=== PATIENT | male | born 1995 | race Caucasian/White ===

== ENCOUNTER 2016-12-06 17:38 | Emergency (ER) | payer BC ==
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
[2016-12-06] MEDS ORDERED: Ibuprofen 800 MG Tab PO ONE (18:11)
[2016-12-06 18:38] VITALS: BP 130/71
--- NOTE | 2016-12-07 15:33 | CR ---
INDICATION: Lateral ankle injury with swelling. LEFT ANKLE: Three views of the left ankle revealed soft tissue swelling overlying the lateral malleolus. However, an acute fracture, dislocation, or other significant bone or joint abnormality was not identified. DAWSON
== END 2016-12-06 18:45 | disposition home or self-care (01) ==
LOC: FB.ED 17:38
DX: S93.412A Sprain of calcaneofibular ligament of left ankle, initial encounter (principal); W13.8XXA Fall from, out of or through other building or structure, initial encounter; Y93.39 Activity, other involving climbing, rappelling and jumping off; Y92.39 Other specified sports and athletic area as the place of occurrence of the external cause
CPT/HCPCS: 73610; 99283; A9270; 29515

== ENCOUNTER 2018-05-13 21:37 | Emergency (ER) | payer BC ==
[2018-05-13 21:47] VITALS: BP 115/84
[2018-05-13] MEDS ORDERED: LORazepam 1 MG Tab PO ONE ×2 (22:00→22:48)
[2018-05-13] MEDS ORDERED: Sodium Chloride 0.9% 1,000 ML IV SCH (23:00)
[2018-05-13] MEDS ORDERED: MVI, Adult with Vitamin K 10 ML, Thiamine 100 MG, Folic Acid 1 MG, Magnesium Sulfate 3 ... IV SCH ×5 (23:45)
[2018-05-14] MEDS ORDERED: Potassium Chloride 10% 20 MEQ/15 ML Soln 15 ML UD Cup PO ONE (00:04)
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
[2018-05-14] MEDS ORDERED: chlordiazePOXIDE 25 MG Cap PO PRN (03:01)
[2018-05-14] MEDS ORDERED: Sodium Chloride 0.9% 10 ML Syringe FLUSH PRN (04:16)
== END 2018-05-14 03:05 | disposition home or self-care (01) ==
LOC: FB.ED 21:37
DX: F10.230 Alcohol dependence with withdrawal, uncomplicated (principal); E87.6 Hypokalemia; E83.42 Hypomagnesemia; F41.0 Panic disorder [episodic paroxysmal anxiety]; Z88.2 Allergy status to sulfonamides
CPT/HCPCS: 36415; 80053; 80305; 81001; 83735; 85025; 96361; 96365; 99283; A9270; G0480; J3411; J3475; J7030; J3490

== ENCOUNTER 2018-12-05 07:57 | Emergency (ER) | payer BC ==
[2018-12-05] MEDS ORDERED: Ondansetron 4 MG/2 ML SDV IVPUSH ONE (08:42)
[2018-12-05] MEDS ORDERED: Sodium Chloride 0.9% 1,000 ML IV SCH ×3 (08:45→12:45)
--- NOTE | 2018-12-05 08:47 | EDM.PDOC ---
ED HPI GENERAL MEDICAL PROBLEM - General Stated Complaint: SEIZURE,ANXIETY Time Seen by Provider: 12/05/18 08:25 Source of Information: Reports: Patient, Family, Old Records History Limitations: Reports: No Limitations - History of Present Illness INITIAL COMMENTS - FREE TEXT/NARRATIVE: Patient is a pleasant 23-year-old male who presents today with both his parents with concern for alcohol withdrawal, and vomiting overnight. He still has known history of severe alcohol use, was at [facility] 2 weeks ago overnight and then discharged home. He states he was able to stay clean for 10-12 days and then over the weekend started again, drinking 8-10 shooters (50ml of 49.5% ETOH) each day. Last drink was at 8 PM yesterday evening. Overnight he woke up vomiting and also feels extremely shaky. He has a history of severe panic attacks where he just feels shaky and everything all over. Also history of alcohol withdrawal seizures. He is concerned he had a seizure this morning, given he was suddenly very shaky all over and felt very anxious. He did not bite his tongue or have any incontinence. history of delirium tremens and alcohol withdrawal seizures. He was started on gabapentin by [facility], but hasn't taken it in 2 days. He also was given acamprosate but hasn't been taking that. He notes a history of one of his liver enzymes being elevated and blood work 1 week ago. Some abdominal pain this morning, which he states happens after he drinks. No blood in his vomit. Sweaty now, but no fever. No diarrhea or constipation, no urinary symptoms, no numbness or tingling in his hands or feet. Denies chest pain or shortness of breath. Uses THC, but no tobacco products and no other drug use. His parents confirm this. There is an extensive history of alcoholism on his father's side and some on his mother's side as well. Plan was for him to go to a treatment center in [place] early this week. - Related Data Allergies Allergy/AdvReac Type Severity Reaction Status Date / Time Sulfa (Sulfonamide Allergy Cannot Verified 12/05/18 09:29 Antibiotics) Remember Home Meds: Home Meds Magnesium Oxide 400 mg PO BID #30 tab 05/14/18 [Rx] Potassium Chloride 20 meq PO BID #40 tab.er.prt 05/14/18 [Rx] chlordiazePOXIDE [Librium] 10 mg PO TID PRN #8 cap 05/14/18 [Rx] chlordiazePOXIDE [Librium] 10 mg PO Q6H PRN 1 Days #3 cap 12/05/18 [Rx] Past Medical History Other Gastrointestinal History: Elevated LFTs Psychiatric History: Reports: Addiction, Anxiety, Panic Attack - Past Surgical History HEENT Surgical History: Reports: Oral Surgery Other Musculoskeletal Surgeries/Procedures:: Ankle surgery Social & Family History - Family History Psychiatric: Reports: Anxiety Other Psychiatric Family History: Alcohol use disorder - Tobacco Use Smoking Status *Q: Never Smoker - Alcohol Use Alcohol Use History: Yes - Recreational Drug Use Recreational Drug Use: Yes Recreational Drug Type: Reports: Marijuana/Hashish - Living Situation & Occupation Living situation: Reports: Single, with Family ED ROS GENERAL - Review of Systems Review Of Systems: ROS reveals no pertinent complaints other than HPI. ED EXAM, GENERAL - Physical Exam Exam: See Below Free Text/Narrative:: Gen.: Alert, very anxious. Pupils are pinpoint and extraocular motion is intact. throat without erythema, mucus membranes moist, emesis smell noted. Head atraumatic, neck is supple. Lungs are clear throughout with no wheezes or crackles, heart is tachycardic but otherwise regular. Abdomen positive bowel sounds, soft nondistended nontender. Peripheral pulses +2 in the upper and lower extremities and there is no lower extremity edema. He has slight tremulousness noted of his hands. His skin is without lesions or rashes. Psych : He is alert and oriented, makes good eye contact and answers questions appropriately. EKG INTERPRETATION Rhythm: NSR QT: Normal Course - Vital Signs Text/Narrative:: History of severe alcohol withdrawal and DTs, labs ordered, will give fluids, Zofran, contact made with [facility]. They're able to detox there, and also have co-morbid mental health treatment. History does not sound to me like a seizure, but rather a panic attack or sudden onset alcohol withdrawal. Will monitor closely here given he has a history of severe withdrawals. He has not had a prolonged episode of drinking this time, if he is accurate in his history. - Orders/Labs/Meds Orders: Active Orders 24 hr Category Date Time Status CIWAA Assessment [RC] ASDIRECTED Care 12/05/18 09:29 Active EKG Documentation Completion [RC] ASDIRECTED Care 12/05/18 08:42 Active LORazepam [Ativan] Med 12/05/18 10:23 Active See Protocol IVPUSH Q4H PRN Sodium Chloride 0.9% [Normal Saline] 1,000 ml Med 12/05/18 08:45 Active IV ASDIRECTED Sodium Chloride 0.9% [Normal Saline] 1,000 ml Med 12/05/18 09:30 Active IV ASDIRECTED Sodium Chloride 0.9% [Normal Saline] 1,000 ml Med 12/05/18 12:45 Active IV ASDIRECTED EKG 12 Lead [EK] Routine Ther 12/05/18 08:42 Ordered Medication Orders Sodium Chloride (Normal Saline) 1,000 mls @ 999 mls/hr IV ASDIRECTED KELSEY Last Admin: 12/05/18 09:12 Dose: 999 mls/hr Sodium Chloride (Normal Saline) 1,000 mls @ 500 mls/hr IV ASDIRECTED KELSEY Last Admin: 12/05/18 10:15 Dose: 500 mls/hr Sodium Chloride (Normal Saline) 1,000 mls @ 300 mls/hr IV ASDIRECTED KELSEY Lorazepam (Ativan) 0 mg IVPUSH Q4H PRN; Protocol PRN Reason: Withdrawal Symptoms Last Admin: 12/05/18 10:29 Dose: 1 mg Labs: Laboratory Tests 12/05/18 12/05/18 12/05/18 Range/Units 08:40 08:40 08:40 WBC 7.4 (4.5-12.0) X10-3/uL RBC 4.66 (4.30-5.75) x10(6)uL Hgb 15.9 (13.5-17.8) g/dL Hct 45.2 (30.0-51.3) % MCV 96.9 H (80-96) fL MCH 34.0 H (27.7-33.6) pg MCHC 35.1 (32.2-35.4) g/dL RDW 12.2 (11.5-15.5) % Plt Count 316 (125-369) X10(3)uL MPV 6.8 L (7.4-10.4) fL Neut % (Auto) 82.2 H (46-82) % Lymph % (Auto) 12.8 L (13-37) % [place] % (Auto) 4.2 (4-12) % Eos % (Auto) 1 (1.0-5.0) % Baso % (Auto) 0 (0-2) % Neut # (Auto) 6.1 (1.6-8.3) # Lymph # (Auto) 0.9 (0.6-5.0) # Laurens # (Auto) 0.3 (0.0-1.3) # Eos # (Auto) 0.0 (0.0-0.8) # Baso # (Auto) 0.0 (0.0-0.2) # Sodium 146 H (135-145) mmol/L Potassium 3.3 L (3.5-5.3) mmol/L Chloride 105 D (100-110) mmol/L Carbon Dioxide 26 (21-32) mmol/L BUN 13 (7-18) mg/dL Creatinine 1.0 (0.70-1.30) mg/dL Est Cr Clr Drug Dosing TNP Estimated GFR (MDRD) > 60 (>60) BUN/Creatinine Ratio 13.0 (9-20) Glucose 85 (80-116) mg/dL Lactic Acid 5.0 H* (0.4-2.2) mmol/L Calcium 9.5 (8.6-10.2) mg/dL Magnesium (1.8-2.5) mg/dL Total Bilirubin 0.6 (0.1-1.3) mg/dL AST 47 H D (5-25) IU/L ALT 74 H D (12-36) U/L Alkaline Phosphatase 66 (56-112) IU/L C-Reactive Protein (0.5-0.9) mg/dL Total Protein 7.4 (6.0-8.0) g/dL Albumin 4.1 (3.5-5.2) g/dL Globulin 3.3 g/dL Albumin/Globulin Ratio 1.2 Amylase (25-115) U/L Urine Color (YELLOW) Urine Appearance (CLEAR) Urine pH (5.0-6.5) Ur Specific [place] (1.010-1.025) Urine Protein (NEGATIVE) mg/dL Urine Glucose (UA) (NORMAL) mg/dL Urine Ketones (NEGATIVE) mg/dL Urine Occult Blood (NEGATIVE) Urine Nitrite (NEGATIVE) Urine Bilirubin (NEGATIVE) Urine Urobilinogen (NEGATIVE) mg/dL Ur Leukocyte Esterase (NEGATIVE) Urine WBC (0-5) Ur Squamous Epith Cells (NS,R,O) Urine Bacteria (NS) Urine Opiates Screen (NEGATIVE) Ur Oxycodone Screen (NEGATIVE) Ur Propoxyphene Screen (NEGATIVE) Ur Barbituates Screen (NEGATIVE) Ur Tricyclics Screen (NEGATIVE) Ur Phencyclidine Scrn (NEGATIVE) Ur Amphetamine Screen (NEGATIVE) Urine MDMA Screen (NEGATIVE) U Benzodiazepines Scrn (NEGATIVE) U Cocaine Metab Screen (NEGATIVE) U Marijuana (THC) Screen (NEGATIVE) Ethyl Alcohol (<0.03) % 12/05/18 12/05/18 12/05/18 Range/Units 08:40 08:40 08:40 WBC (4.5-12.0) X10-3/uL RBC (4.30-5.75) x10(6)uL Hgb (13.5-17.8) g/dL Hct (30.0-51.3) % MCV (80-96) fL MCH (27.7-33.6) pg MCHC (32.2-35.4) g/dL RDW (11.5-15.5) % Plt Count (125-369) X10(3)uL MPV (7.4-10.4) fL Neut % (Auto) (46-82) % Lymph % (Auto) (13-37) % Laurens % (Auto) (4-12) % Eos % (Auto) (1.0-5.0) % Baso % (Auto) (0-2) % Neut # (Auto) (1.6-8.3) # Lymph # (Auto) (0.6-5.0) # Lau[place] # (Auto) (0.0-1.3) # Eos # (Auto) (0.0-0.8) # Baso # (Auto) (0.0-0.2) # Sodium (135-145) mmol/L Potassium (3.5-5.3) mmol/L Chloride (100-110) mmol/L Carbon Dioxide (21-32) mmol/L BUN (7-18) mg/dL Creatinine (0.70-1.30) mg/dL Est Cr Clr Drug Dosing Estimated GFR (MDRD) (>60) BUN/Creatinine Ratio (9-20) Glucose (80-116) mg/dL Lactic Acid (0.4-2.2) mmol/L Calcium (8.6-10.2) mg/dL Magnesium 1.4 L (1.8-2.5) mg/dL Total Bilirubin (0.1-1.3) mg/dL AST (5-25) IU/L ALT (12-36) U/L Alkaline Phosphatase (56-112) IU/L C-Reactive Protein < 0.2 L (0.5-0.9) mg/dL Total Protein (6.0-8.0) g/dL Albumin (3.5-5.2) g/dL Globulin g/dL Albumin/Globulin Ratio Amylase 92 (25-115) U/L Urine Color (YELLOW) Urine Appearance (CLEAR) Urine pH (5.0-6.5) Ur Specific [place] (1.010-1.025) Urine Protein (NEGATIVE) mg/dL Urine Glucose (UA) (NORMAL) mg/dL Urine Ketones (NEGATIVE) mg/dL Urine Occult Blood (NEGATIVE) Urine Nitrite (NEGATIVE) Urine Bilirubin (NEGATIVE) Urine Urobilinogen (NEGATIVE) mg/dL Ur Leukocyte Esterase (NEGATIVE) Urine WBC (0-5) Ur Squamous Epith Cells (NS,R,O) Urine Bacteria (NS) Urine Opiates Screen (NEGATIVE) Ur Oxycodone Screen (NEGATIVE) Ur Propoxyphene Screen (NEGATIVE) Ur Barbituates Screen (NEGATIVE) Ur Tricyclics Screen (NEGATIVE) Ur Phencyclidine Scrn (NEGATIVE) Ur Amphetamine Screen (NEGATIVE) Urine MDMA Screen (NEGATIVE) U Benzodiazepines Scrn (NEGATIVE) U Cocaine Metab Screen (NEGATIVE) U Marijuana (THC) Screen (NEGATIVE) Ethyl Alcohol 0.13 H (<0.03) % 12/05/18 12/05/18 12/05/18 Range/Units 11:45 11:45 11:45 WBC (4.5-12.0) X10-3/uL RBC (4.30-5.75) x10(6)uL Hgb (13.5-17.8) g/dL Hct (30.0-51.3) % MCV (80-96) fL MCH (27.7-33.6) pg MCHC (32.2-35.4) g/dL RDW (11.5-15.5) % Plt Count (125-369) X10(3)uL MPV (7.4-10.4) fL Neut % (Auto) (46-82) % Lymph % (Auto) (13-37) % [place] % (Auto) (4-12) % Eos % (Auto) (1.0-5.0) % Baso % (Auto) (0-2) % Neut # (Auto) (1.6-8.3) # Lymph # (Auto) (0.6-5.0) # [place] # (Auto) (0.0-1.3) # Eos # (Auto) (0.0-0.8) # Baso # (Auto) (0.0-0.2) # Sodium (135-145) mmol/L Potassium (3.5-5.3) mmol/L Chloride (100-110) mmol/L Carbon Dioxide (21-32) mmol/L BUN (7-18) mg/dL Creatinine (0.70-1.30) mg/dL Est Cr Clr Drug Dosing Estimated GFR (MDRD) (>60) BUN/Creatinine Ratio (9-20) Glucose (80-116) mg/dL Lactic Acid 2.6 H (0.4-2.2) mmol/L Calcium (8.6-10.2) mg/dL Magnesium (1.8-2.5) mg/dL Total Bilirubin (0.1-1.3) mg/dL AST (5-25) IU/L ALT (12-36) U/L Alkaline Phosphatase (56-112) IU/L C-Reactive Protein (0.5-0.9) mg/dL Total Protein (6.0-8.0) g/dL Albumin (3.5-5.2) g/dL Globulin g/dL Albumin/Globulin Ratio Amylase (25-115) U/L Urine Color Yellow (YELLOW) Urine Appearance Slightly cloudy (CLEAR) Urine pH 8.0 H (5.0-6.5) Ur Specific [place] 1.020 (1.010-1.025) Urine Protein Negative (NEGATIVE) mg/dL Urine Glucose (UA) Normal (NORMAL) mg/dL Urine Ketones 15 H (NEGATIVE) mg/dL Urine Occult Blood Negative (NEGATIVE) Urine Nitrite Negative (NEGATIVE) Urine Bilirubin Negative (NEGATIVE) Urine Urobilinogen Normal (NEGATIVE) mg/dL Ur Leukocyte Esterase Negative (NEGATIVE) Urine WBC 0-5 (0-5) Ur Squamous Epith Cells Few H (NS,R,O) Urine Bacteria Few H (NS) Urine Opiates Screen Negative (NEGATIVE) Ur Oxycodone Screen Negative (NEGATIVE) Ur Propoxyphene Screen Negative (NEGATIVE) Ur Barbituates Screen Negative (NEGATIVE) Ur Tricyclics Screen Negative (NEGATIVE) Ur Phencyclidine Scrn Negative (NEGATIVE) Ur Amphetamine Screen Negative (NEGATIVE) Urine MDMA Screen Negative (NEGATIVE) U Benzodiazepines Scrn Positive H (NEGATIVE) U Cocaine Metab Screen Negative (NEGATIVE) U Marijuana (THC) Screen Negative (NEGATIVE) Ethyl Alcohol (<0.03) % 12/05/18 12/05/18 Range/Units 14:48 14:48 WBC (4.5-12.0) X10-3/uL RBC (4.30-5.75) x10(6)uL Hgb (13.5-17.8) g/dL Hct (30.0-51.3) % MCV (80-96) fL MCH (27.7-33.6) pg MCHC (32.2-35.4) g/dL RDW (11.5-15.5) % Plt Count (125-369) X10(3)uL MPV (7.4-10.4) fL Neut % (Auto) (46-82) % Lymph % (Auto) (13-37) % [place] % (Auto) (4-12) % Eos % (Auto) (1.0-5.0) % Baso % (Auto) (0-2) % Neut # (Auto) (1.6-8.3) # Lymph # (Auto) (0.6-5.0) # [place] # (Auto) (0.0-1.3) # Eos # (Auto) (0.0-0.8) # Baso # (Auto) (0.0-0.2) # Sodium 142 (135-145) mmol/L Potassium 3.8 (3.5-5.3) mmol/L Chloride 106 (100-110) mmol/L Carbon Dioxide 27 (21-32) mmol/L BUN 10 (7-18) mg/dL Creatinine 0.8 (0.70-1.30) mg/dL Est Cr Clr Drug Dosing TNP Estimated GFR (MDRD) > 60 (>60) BUN/Creatinine Ratio 12.5 (9-20) Glucose 85 (80-116) mg/dL Lactic Acid 2.0 (0.4-2.2) mmol/L Calcium 7.9 L (8.6-10.2) mg/dL Magnesium (1.8-2.5) mg/dL Total Bilirubin (0.1-1.3) mg/dL AST (5-25) IU/L ALT (12-36) U/L Alkaline Phosphatase (56-112) IU/L C-Reactive Protein (0.5-0.9) mg/dL Total Protein (6.0-8.0) g/dL Albumin (3.5-5.2) g/dL Globulin g/dL Albumin/Globulin Ratio Amylase (25-115) U/L Urine Color (YELLOW) Urine Appearance (CLEAR) Urine pH (5.0-6.5) Ur Specific [place] (1.010-1.025) Urine Protein (NEGATIVE) mg/dL Urine Glucose (UA) (NORMAL) mg/dL Urine Ketones (NEGATIVE) mg/dL Urine Occult Blood (NEGATIVE) Urine Nitrite (NEGATIVE) Urine Bilirubin (NEGATIVE) Urine Urobilinogen (NEGATIVE) mg/dL Ur Leukocyte Esterase (NEGATIVE) Urine WBC (0-5) Ur Squamous Epith Cells (NS,R,O) Urine Bacteria (NS) Urine Opiates Screen (NEGATIVE) Ur Oxycodone Screen (NEGATIVE) Ur Propoxyphene Screen (NEGATIVE) Ur Barbituates Screen (NEGATIVE) Ur Tricyclics Screen (NEGATIVE) Ur Phencyclidine Scrn (NEGATIVE) Ur Amphetamine Screen (NEGATIVE) Urine MDMA Screen (NEGATIVE) U Benzodiazepines Scrn (NEGATIVE) U Cocaine Metab Screen (NEGATIVE) U Marijuana (THC) Screen (NEGATIVE) Ethyl Alcohol (<0.03) % Meds: Medications Generic Name Dose Route Start Last Admin Trade Name Freq PRN Reason Stop Dose Admin Sodium Chloride 1,000 mls @ 999 mls/hr 12/05/18 08:45 12/05/18 09:12 Normal Saline IV 999 mls/hr ASDIRECTED KELSEY Administration Sodium Chloride 1,000 mls @ 500 mls/hr 12/05/18 09:30 12/05/18 10:15 Normal Saline IV 500 mls/hr ASDIRECTED KELSEY Administration Sodium Chloride 1,000 mls @ 300 mls/hr 12/05/18 12:45 Normal Saline IV ASDIRECTED KELSEY Lorazepam 0 mg 12/05/18 10:23 12/05/18 10:29 Ativan IVPUSH 1 mg Q4H PRN Administration Withdrawal Symptoms Protocol Discontinued Medications Generic Name Dose Route Start Last Admin Trade Name Ana Luara PRN Reason Stop Dose Admin Gabapentin 300 mg 12/05/18 08:49 Neurontin PO 12/05/18 08:50 ONETIME ONE Magnesium Sulfate 4 gm/ Premix 50 mls @ 150 mls/hr 12/05/18 09:16 12/05/18 09 :31 IV 12/05/18 09:17 150 mls/hr ONETIME ONE Administration Potassium Chloride 20 meq/ 100 mls @ 50 mls/hr 12/05/18 09:16 12/05/18 10:16 Premix IV 12/05/18 11:15 50 mls/hr ONETIME ONE Administration Ondansetron HCl 4 mg 12/05/18 08:42 12/05/18 09:12 Zofran IVPUSH 12/05/18 08:43 4 mg ONETIME ONE Administration - Re-Assessments/Exams Free Text/Narrative Re-Assessment/Exam: 12/05/18 09:30 labs reviewed and patient is slightly magnesium and potassium decreased, sodium slightly elevated at 146. Lactic acid 5.0, will recheck in 3 hours. Liver enzymes mildly elevated consistent with alcohol use. Ethanol level 0.13. CBC within normal limits. Patient is feeling better after about 600 NS fluids. Free water order to bedside and CIWA scale ordered. 1mg ativan given. Free Text/Narrative Re-Assessment/Exam: 12/05/18 patient greatly improved after 1mg ativan and has drunk about 900ml free water. Continue IVF. Repeat lactic acid 2.6. Discussed possible obs admission here overnight, they are in agreement. case discussed with hospitalist and nursing staff and no beds available. discussed case with parents. He has no withdrawal symptoms at this time, and is feeling much better. could consider transfer to [facility], but given his appearance now I am not sure he even warrants admission. Parents report they can keep him safe overnight and he has plans for admission to [facility] tomorrow if medically cleared. They are able to do detox there if needed. will plan to repeat lactic acid and BMP after another 3 hours. If no additional signs of withdrawal during that time, and all labs normalize, will plan to discharge home and medically clear for detox/treatment program. Free Text/Narrative Re-Assessment/Exam: 12/05/18 repeat lactic acid and BMP within normal limits. Electrolytes corrected. Patient has remained hemodynamically stable, and has not needed any additional dosing of Ativan. He has no tremulousness, and no other symptoms of withdrawal at this time. His abdomen is soft and he otherwise appears normal. Discussed case with Emely at [facility] and verbally cleared patient for admission there tomorrow based on current appearance. Notes to follow. We'll plan to discharge home, prescription of 3 tabs Librium given in case of low-grade withdrawal symptoms overnight. Parents aware that if he starts to have more significant withdrawal will need to return to the ER. However per report his duration of drinking has been extremely short so I do not anticipate this. They are in agreement with this plan and all questions are answered. Departure - Departure Time of Disposition: 16:39 Disposition: Home, Self-Care 01 Condition: Fair Clinical Impression: Alcohol use disorder, Anxiety - Discharge Information *PRESCRIPTION DRUG MONITORING PROGRAM REVIEWED*: Yes *COPY OF PRESCRIPTION DRUG MONITORING REPORT IN PATIENT KIP: No Prescriptions: chlordiazePOXIDE [Librium] 10 mg PO Q6H PRN 1 Days #3 cap PRN Reason: Agitation Instructions: Alcohol Use Disorder Referrals: PCP,Unknown [Primary Care Provider] - Additional Instructions: ER will fax notes up to [facility] once they are completed. Recommend calling them in the AM prior to driving. small script of Librium for as needed if develop low-level withdrawal symptoms. If severe symptoms or not controlled, need to return to ER - My Orders Last 24 Hours: My Active Orders 12/05/18 08:42 EKG Documentation Completion [RC] ASDIRECTED EKG 12 Lead [EK] Routine 12/05/18 08:45 Sodium Chloride 0.9% [Normal Saline] 1,000 ml IV ASDIRECTED 12/05/18 09:29 CIWAA Assessment [RC] ASDIRECTED 12/05/18 09:30 Sodium Chloride 0.9% [Normal Saline] 1,000 ml IV ASDIRECTED 12/05/18 10:23 LORazepam [Ativan] See Protocol IVPUSH Q4H PRN 12/05/18 12:45 Sodium Chloride 0.9% [Normal Saline] 1,000 ml IV ASDIRECTED - Assessment/Plan Last 24 Hours: My Active Orders 12/05/18 08:42 EKG Documentation Completion [RC] ASDIRECTED EKG 12 Lead [EK] Routine 12/05/18 08:45 Sodium Chloride 0.9% [Normal Saline] 1,000 ml IV ASDIRECTED 12/05/18 09:29 CIWAA Assessment [RC] ASDIRECTED 12/05/18 09:30 Sodium Chloride 0.9% [Normal Saline] 1,000 ml IV ASDIRECTED 12/05/18 10:23 LORazepam [Ativan] See Protocol IVPUSH Q4H PRN 12/05/18 12:45 Sodium Chloride 0.9% [Normal Saline] 1,000 ml IV ASDIRECTED
[2018-12-05] MEDS ORDERED: Gabapentin 300 MG Cap PO ONE (08:49)
[2018-12-05] MEDS ORDERED: Potassium Chloride 20 MEQ in Premix Bag 1 BAG IV ONE (09:16)
[2018-12-05] MEDS ORDERED: Magnesium Sulfate/Water 4 GM in Premix Bag 1 BAG IV ONE (09:16)
[2018-12-05] MEDS ORDERED: LORazepam 2 MG/ML SDV IVPUSH PRN (10:23)
[2018-12-05 20:18] VITALS: BP 125/71; PULSE 82
== END 2018-12-05 16:50 | disposition home or self-care (01) ==
LOC: FB.ED 07:57
DX: F41.9 Anxiety disorder, unspecified (principal); F10.10 Alcohol abuse, uncomplicated; Z88.2 Allergy status to sulfonamides
CPT/HCPCS: 36415; 80048; 80053; 80305-QW; 81001; 82150; 83605; 83735; 85025; 86140; 93005; 96361; 96365; 96366; 96368; 96375; 99285-25; G0480; J2060; J2405; J3475; J3480; J7030

== ENCOUNTER 2018-12-27 09:47 | Emergency (ER) | payer BC ==
[2018-12-27] MEDS ORDERED: Sodium Chloride 0.9% 1,000 ML IV ONE ×2 (10:43→10:44)
[2018-12-27] MEDS ORDERED: Ondansetron 4 MG/2 ML SDV IVPUSH ONE ×2 (10:44→12:41)
--- NOTE | 2018-12-27 10:53 | EDM.PDOC ---
ED HPI GENERAL MEDICAL PROBLEM - General Chief Complaint: Gastrointestinal Problem Stated Complaint: SEIZURE Time Seen by Provider: 12/27/18 10:25 Source of Information: Reports: Patient History Limitations: Reports: No Limitations - History of Present Illness INITIAL COMMENTS - FREE TEXT/NARRATIVE: c/o cramps and N/V at [facility] x2w for alcohol tx, d/c'ed 5d ago, stopped his meds (folic acid, citalopram, acamprosate, gabapentin) 2d ago and started drinking shots of alcohol, last alcohol last last night no pain except cramping in his hands says "I have an alcohol problem" labs here 3w ago with Mg 1.4, mild inc'd LFTs, alc level 130, urine tox pos benzodiazipines, u/a with 15 mg/dl ket. CBC, CMP, CRP otherwise neg pt states he smokes occasional THC, no cigs, on street drugs worked 4y as apprentice electrician, scheduled to go back to work in next week has his first outpt appointment with [facility] in 2d lives with girlfriend, no children no previous outpt tx, no previous inpt tx prior to 3w ago comes in by himself - Related Data Allergies Allergy/AdvReac Type Severity Reaction Status Date / Time Sulfa (Sulfonamide Allergy Cannot Verified 12/27/18 09:59 Antibiotics) Remember Home Meds: Home Meds Acamprosate [Campral] 333 mg PO TID 12/27/18 [History] Citalopram Hydrobromide [Celexa] 10 mg PO DAILY 12/27/18 [History] Folic Acid 1 mg PO DAILY 12/27/18 [History] Gabapentin [Neurontin] 300 mg TID 12/27/18 [History] Metoclopramide HCl 10 mg PO Q6H PRN #12 tablet 12/27/18 [Rx] Past Medical History Gastrointestinal History: Reports: Gastritis, GERD Other Gastrointestinal History: Elevated LFTs Musculoskeletal History: Reports: Fracture Other Musculoskeletal History: hx R wrist fx Neurological History: Reports: Seizure Other Neuro History: alcoholic seizure Psychiatric History: Reports: Addiction, Anxiety, Depression, Panic Attack, Psych Hospitalization(s) Other Psychiatric History: alcohol abuse, hx been in tx for ETOH abuse x 1 - Infectious Disease History Infectious Disease History: Reports: Chicken Pox - Past Surgical History Head Surgeries/Procedures: Reports: None HEENT Surgical History: Reports: Oral Surgery GI Surgical History: Reports: None Neurological Surgical History: Reports: None Other Musculoskeletal Surgeries/Procedures:: R foot surgery Social & Family History - Family History Family Medical History: Noncontributory Psychiatric: Reports: Anxiety Other Psychiatric Family History: Alcohol use disorder - Tobacco Use Smoking Status *Q: Never Smoker - Caffeine Use Caffeine Use: Reports: Coffee, Energy Drinks - Recreational Drug Use Recreational Drug Use: Yes Recreational Drug Type: Reports: Marijuana/Hashish Recreational Drug Use Frequency: Socially - Living Situation & Occupation Living situation: Reports: Single, with Family ED ROS GENERAL - Review of Systems Review Of Systems: See Below Constitutional: Reports: No Symptoms HEENT: Reports: No Symptoms Respiratory: Reports: No Symptoms Cardiovascular: Reports: No Symptoms Endocrine: Reports: No Symptoms GI/Abdominal: Reports: Nausea, Vomiting : Reports: No Symptoms Musculoskeletal: Reports: Other (cramps, mainly in hands) Skin: Reports: No Symptoms Neurological: Reports: No Symptoms Psychiatric: Reports: No Symptoms Hematologic/Lymphatic: Reports: No Symptoms Immunologic: Reports: No Symptoms ED EXAM, GENERAL - Physical Exam Exam: See Below Exam Limited By: No Limitations General Appearance: Alert, WD/WN, Other (pacing in room, 400 ml emesis on arrival, cooperative, alert) Eye Exam: Bilateral Eye: EOMI, PERRL Ears: Normal External Exam, Hearing Grossly Normal Nose: Normal Inspection Throat/Mouth: Normal Inspection, Normal Lips, Normal Voice, No Airway Compromise Head: Atraumatic, Normocephalic Neck: Normal Inspection, Supple, Non-Tender, Full Range of Motion Respiratory/Chest: No Respiratory Distress, Lungs Clear, Normal Breath Sounds, No Accessory Muscle Use, Chest Non-Tender Cardiovascular: Regular Rate, Rhythm, No Edema, No JVD, No Murmur, No Rub GI/Abdominal: Normal Bowel Sounds, Soft, Non-Tender, No Organomegaly, No Distention, No Mass Back Exam: Normal Inspection, Full Range of Motion, NT Extremities: Normal Inspection, Normal Range of Motion, Non-Tender, No Pedal Edema Neurological: Alert, Oriented, CN II-XII Intact, Normal Cognition, Normal Gait, No Motor/Sensory Deficits Psychiatric: Normal Affect, Normal Mood Skin Exam: Warm, Dry, Intact, Normal Color, No Rash, Other (turgor appears WNL) Lymphatic: No Adenopathy Course - Vital Signs Last Recorded V/S: Last Vital Signs Temp 36.4 C 12/27/18 09:48 Pulse 93 12/27/18 09:48 Resp 18 12/27/18 09:48 BP 124/64 12/27/18 09:48 Pulse Ox 99 12/27/18 09:48 - Orders/Labs/Meds Labs: Laboratory Tests 12/27/18 12/27/18 Range/Units 10:10 10:10 Sodium 145 (135-145) mmol/L Potassium 3.5 (3.5-5.3) mmol/L Chloride 102 (100-110) mmol/L Carbon Dioxide 30 (21-32) mmol/L BUN 14 (7-18) mg/dL Creatinine 1.0 (0.70-1.30) mg/dL Est Cr Clr Drug Dosing 116.60 mL/min Estimated GFR (MDRD) > 60 (>60) BUN/Creatinine Ratio 14.0 (9-20) Glucose 91 (80-116) mg/dL Calcium 9.8 (8.6-10.2) mg/dL Magnesium 1.8 (1.8-2.5) mg/dL Total Bilirubin 0.9 (0.1-1.3) mg/dL AST 46 H (5-25) IU/L ALT 72 H (12-36) U/L Alkaline Phosphatase 56 (56-112) IU/L Total Protein 7.5 (6.0-8.0) g/dL Albumin 4.4 (3.5-5.2) g/dL Globulin 3.1 g/dL Albumin/Globulin Ratio 1.4 Amylase 76 (25-115) U/L Ethyl Alcohol 0.12 H (<0.03) % Meds: Medications Discontinued Medications Generic Name Dose Route Start Last Admin Trade Name Freq PRN Reason Stop Dose Admin Diphenhydramine HCl 50 mg 12/27/18 13:06 Benadryl IVPUSH 12/27/18 13:07 ONETIME ONE Hydroxyzine HCl 25 mg 12/27/18 13:07 Atarax PO 12/27/18 13:08 ONETIME ONE Sodium Chloride 1,000 mls @ 999 mls/hr 12/27/18 10:43 12/27/18 11:00 Normal Saline IV 12/27/18 11:43 999 mls/hr .BOLUS ONE Administration Sodium Chloride 1,000 mls @ 999 mls/hr 12/27/18 10:44 12/27/18 11:59 Normal Saline IV 12/27/18 11:44 999 mls/hr .BOLUS ONE Administration Ketorolac Tromethamine 30 mg 12/27/18 12:41 12/27/18 12:50 Toradol IVPUSH 12/27/18 12:42 30 mg ONETIME ONE Administration Ondansetron HCl 4 mg 12/27/18 10:44 12/27/18 11:00 Zofran IVPUSH 12/27/18 10:45 4 mg ONETIME ONE Administration Ondansetron HCl 4 mg 12/27/18 12:41 12/27/18 12:48 Zofran IVPUSH 12/27/18 12:42 4 mg ONETIME ONE Administration - Radiology Interpretation Free Text/Narrative:: 1:09 PM c/o inc'd cramps when his mother arrived a short while ago, K and Mg are both WNL, mild inc'd LFTs unchanged rested comfortably until his mother arrived states he last took d/c meds 48 hours ago, says he was dry for 18d phone representative from [facility] came to ED and spoke with pt and made arrangements to move up his apt to tomorrow, has also initiated contact with an AA sponsor Departure - Departure Time of Disposition: 13:11 Disposition: Home, Self-Care 01 Condition: Good Clinical Impression: Alcohol abuse, Alcoholism, Elevated liver function tests, Muscle cramps, Dehydration - Discharge Information *PRESCRIPTION DRUG MONITORING PROGRAM REVIEWED*: Not Applicable *COPY OF PRESCRIPTION DRUG MONITORING REPORT IN PATIENT KIP: Not Applicable Prescriptions: Metoclopramide HCl 10 mg PO Q6H PRN #12 tablet PRN Reason: Nausea Instructions: Alcohol Use Disorder, Recovering From Addiction, Muscle Cramps and Spasms Referrals: PCP,None [Primary Care Provider] - Forms: ED Department Discharge Additional Instructions: Resume your prescribed medications this evening. Stop drinking alcohol. For pain and cramping, take acetaminophen 325 mg 2 tabs and ibuprofen 200 mg 3 tabs 4 times a day for 2 days. For cramping, use warm compresses for 10 minutes every 1-2 hours as needed. For nausea, take metoclopramide 10 mg 1 tab every 6 hours as needed. See your [facility] counselor tomorrow. Meet with your AA counselor. See your PCP in 3-5 days.
[2018-12-27] MEDS ORDERED: Ketorolac 30 MG/ML SDV IVPUSH ONE (12:41)
[2018-12-27] MEDS ORDERED: diphenhydrAMINE 50 MG/ML SDV IVPUSH ONE (13:06)
[2018-12-27] MEDS ORDERED: hydrOXYzine HCl 25 MG Tab PO ONE (13:07)
[2018-12-27 16:16] VITALS: BP 154/78; PULSE 101
== END 2018-12-27 13:45 | disposition home or self-care (01) ==
LOC: FB.ED 09:47
DX: F10.20 Alcohol dependence, uncomplicated (principal); E86.0 Dehydration; R25.2 Cramp and spasm; R79.89 Other specified abnormal findings of blood chemistry; F41.9 Anxiety disorder, unspecified; F32.9 Major depressive disorder, single episode, unspecified; Z88.2 Allergy status to sulfonamides; Y90.0 Blood alcohol level of less than 20 mg/100 ml
CPT/HCPCS: 36415; 80053; 80320; 82150; 83735; 96361; 96374; 96375; 96376; 99284; A9270; J1200; J1885; J2405; J7030; G0480

== ENCOUNTER 2019-08-14 09:25 | Emergency (ER) | payer BC ==
[2019-08-14] MEDS ORDERED: LORazepam 2 MG/ML SDV IM ONE (09:37)
[2019-08-14] MEDS ORDERED: Thiamine 100 MG in Sodium Chloride 0.9% 100 ML IV ONE (09:43)
[2019-08-14] MEDS ORDERED: LORazepam 2 MG/ML SDV IVPUSH ONE (09:43)
[2019-08-14] MEDS ORDERED: Ondansetron 4 MG/2 ML SDV IVPUSH ONE (09:43)
--- NOTE | 2019-08-14 09:43 | EDM.PDOCBH ---
ED HPI GENERAL MEDICAL PROBLEM - General Stated Complaint: ALCOHOL WITHDRAWAL Time Seen by Provider: 08/14/19 09:39 Source of Information: Reports: Patient History Limitations: Reports: No Limitations - History of Present Illness INITIAL COMMENTS - FREE TEXT/NARRATIVE: 23 yo male with alcohol withdrawal. He complains of tremors,anxiety,vomiting that started this morning. Last drink last night 7 pm. - Related Data Allergies Allergy/AdvReac Type Severity Reaction Status Date / Time Sulfa (Sulfonamide Allergy Cannot Verified 08/14/19 10:15 Antibiotics) Remember Home Meds: Home Meds Baclofen 20 mg PO TID 08/14/19 [History] Past Medical History Gastrointestinal History: Reports: Gastritis, GERD Other Gastrointestinal History: Elevated LFTs Musculoskeletal History: Reports: Fracture Other Musculoskeletal History: hx R wrist fx Neurological History: Reports: Seizure Other Neuro History: alcoholic seizure Psychiatric History: Reports: Addiction, Anxiety, Depression, Panic Attack, Psych Hospitalization(s) Other Psychiatric History: alcohol abuse, hx been in tx for ETOH abuse x 1 - Infectious Disease History Infectious Disease History: Reports: Chicken Pox - Past Surgical History Head Surgeries/Procedures: Reports: None HEENT Surgical History: Reports: Oral Surgery GI Surgical History: Reports: None Neurological Surgical History: Reports: None Other Musculoskeletal Surgeries/Procedures:: R foot surgery Social & Family History - Family History Family Medical History: Noncontributory Psychiatric: Reports: Anxiety Other Psychiatric Family History: Alcohol use disorder - Caffeine Use Caffeine Use: Reports: Coffee, Energy Drinks - Living Situation & Occupation Living situation: Reports: Single, with Family ED ROS GENERAL - Review of Systems Review Of Systems: Comprehensive ROS is negative, except as noted in HPI. ED EXAM, BEHAVIORAL HEALTH - Physical Exam Exam: See Below Exam Limited By: No Limitations General Appearance: Alert, Anxious Ears: Normal External Exam Nose: Normal Inspection Head: Atraumatic Respiratory/Chest: No Respiratory Distress Cardiovascular: Normal Peripheral Pulses GI/Abdominal: Normal Bowel Sounds Neurological: Alert, Oriented x 3 Psychiatric: Alert, Restless Skin Exam: Warm COURSE, BEHAVIORAL HEALTH COMP - Course Vital Signs: Last Vital Signs Temp 96.4 F L 08/14/19 09:30 Pulse 61 08/14/19 10:30 Resp 16 08/14/19 10:30 BP 135/75 08/14/19 10:30 Pulse Ox 100 08/14/19 10:30 Orders, Labs, Meds: Active Orders 24 hr Category Date Time Status Sodium Chloride 0.9% [Normal Saline] 1,000 ml Med 08/14/19 09:45 Active IV ASDIRECTED Medication Orders Sodium Chloride (Normal Saline) 1,000 mls @ 999 mls/hr IV ASDIRECTED KELSEY Last Admin: 08/14/19 09:55 Dose: 999 mls/hr Laboratory Tests 08/14/19 08/14/19 08/14/19 Range/Units 09:45 09:45 09:45 WBC 5.0 (4.5-12.0) X10-3/uL RBC 5.01 (4.30-5.75) x10(6)uL Hgb 16.8 (13.5-17.8) g/dL Hct 48.1 (30.0-51.3) % MCV 96.1 H (80-96) fL MCH 33.6 (27.7-33.6) pg MCHC 34.9 (32.2-35.4) g/dL RDW 12.4 (11.5-15.5) % Plt Count 282 (125-369) X10(3)uL MPV 6.5 L (7.4-10.4) fL Neut % (Auto) 53.1 (46-82) % Lymph % (Auto) 38.9 H (13-37) % [facility] % (Auto) 5.9 (4-12) % Eos % (Auto) 2 (1.0-5.0) % Baso % (Auto) 1 (0-2) % Neut # (Auto) 2.7 (1.6-8.3) # Lymph # (Auto) 1.9 (0.6-5.0) # [facility] # (Auto) 0.3 (0.0-1.3) # Eos # (Auto) 0.1 (0.0-0.8) # Baso # (Auto) 0.0 (0.0-0.2) # Sodium 142 (135-145) mmol/L Potassium 3.8 (3.5-5.3) mmol/L Chloride 103 (100-110) mmol/L Carbon Dioxide 27 (21-32) mmol/L BUN 12 (7-18) mg/dL Creatinine 1.2 (0.70-1.30) mg/dL Est Cr Clr Drug Dosing 97.16 mL/min Estimated GFR (MDRD) > 60 (>60) BUN/Creatinine Ratio 10.0 (9-20) Glucose 99 (80-116) mg/dL Calcium 9.2 (8.6-10.2) mg/dL Total Bilirubin 0.8 (0.1-1.3) mg/dL AST 68 H D (5-25) IU/L ALT 69 H (12-36) U/L Alkaline Phosphatase 75 (56-112) IU/L Total Protein 7.6 (6.0-8.0) g/dL Albumin 4.4 (3.5-5.2) g/dL Globulin 3.2 g/dL Albumin/Globulin Ratio 1.4 Ethyl Alcohol 0.08 H (<0.03) % Medications Generic Name Dose Route Start Last Admin Trade Name Freq PRN Reason Stop Dose Admin Sodium Chloride 1,000 mls @ 999 mls/hr 08/14/19 09:45 08/14/19 09:55 Normal Saline IV 999 mls/hr ASDIRECTED KELSEY Administration Discontinued Medications Generic Name Dose Route Start Last Admin Trade Name Freq PRN Reason Stop Dose Admin Thiamine HCl 100 mg/ Sodium 101 mls @ 202 mls/hr 08/14/19 09:43 08/14/19 10: 00 Chloride IV 08/14/19 09:44 202 mls/hr ONETIME ONE Administration Lorazepam 1 mg 08/14/19 09:37 Ativan IM 08/14/19 09:38 ONETIME ONE Lorazepam 1 mg 08/14/19 09:43 08/14/19 10:01 Ativan IVPUSH 08/14/19 09:44 1 mg ONETIME ONE Administration Ondansetron HCl 4 mg 08/14/19 09:43 08/14/19 09:58 Zofran IVPUSH 08/14/19 09:44 4 mg ONETIME ONE Administration Departure - Departure Time of Disposition: 11:20 Disposition: Home, Self-Care 01 Clinical Impression: Anxiety Alcohol withdrawal Qualifiers: Complication of substance-induced condition: uncomplicated Qualified Code(s): F10.230 - Alcohol dependence with withdrawal, uncomplicated - Discharge Information Referrals: PCP,None [Primary Care Provider] - Sepsis Event Note - Focused Exam Vital Signs: Vital Signs Temp Pulse Resp BP Pulse Ox 08/14/19 10:30 61 16 135/75 100 05/25/20 09:30 96.4 F L 96 18 150/87 H 100 Date Exam was Performed: 08/14/19 Time Exam was Performed: 11:20 - Problem List & Annotations (1) Alcoholism SNOMED Code(s): 9025149 Code(s): F10.20 - ALCOHOL DEPENDENCE, UNCOMPLICATED Status: Acute Current Visit: No (2) Anxiety SNOMED Code(s): 74545508 Code(s): F41.9 - ANXIETY DISORDER, UNSPECIFIED Status: Acute Current Visit: Yes - Problem List Review Problem List Initiated/Reviewed/Updated: Yes - My Orders Last 24 Hours: My Active Orders 08/14/19 09:45 Sodium Chloride 0.9% [Normal Saline] 1,000 ml IV ASDIRECTED - Assessment/Plan Last 24 Hours: My Active Orders 08/14/19 09:45 Sodium Chloride 0.9% [Normal Saline] 1,000 ml IV ASDIRECTED Plan: I gave him 1 L crystalloid,and IV Lorazepam.Symptoms improved. DC home.
[2019-08-14] MEDS ORDERED: Sodium Chloride 0.9% 1,000 ML IV SCH (09:45)
[2019-08-14 11:46] VITALS: BP 121/70; PULSE 60
== END 2019-08-14 11:40 | disposition home or self-care (01) ==
LOC: FB.ED 09:25
DX: F10.230 Alcohol dependence with withdrawal, uncomplicated (principal); F41.9 Anxiety disorder, unspecified; Z88.2 Allergy status to sulfonamides; Z79.899 Other long term (current) drug therapy
CPT/HCPCS: 36415; 80053; 80307; 85025; 96365; 96375; 99284-25; J2060; J2405; J3411; J7030; J7050

== ENCOUNTER 2021-08-03 06:52 | Emergency (ER) | payer BC ==
[2021-08-03] MEDS ORDERED: Thiamine 100 MG in Sodium Chloride 0.9% 100 ML IV ONE (07:01)
[2021-08-03] MEDS ORDERED: Ondansetron 4 MG/2 ML SDV ONE (07:02)
[2021-08-03] MEDS ORDERED: Folic Acid 50 MG/10 ML MDV IV STA (07:02)
[2021-08-03] MEDS ORDERED: Ondansetron 4 MG/2 ML SDV IVPUSH ONE ×2 (07:02→11:45)
[2021-08-03] MEDS ORDERED: LORazepam 2 MG/ML SDV IVPUSH ONE ×3 (07:03→11:44)
[2021-08-03] MEDS: Sodium Chloride 0.9% 1,000 ML IV SCH ×3 (07:16→18:30)
[2021-08-03] MEDS ORDERED: Magnesium Sulfate/Water 4 GM in Premix Bag 1 BAG IV ONE (08:09)
[2021-08-03] MEDS ORDERED: Potassium Chloride 20 MEQ in Premix Bag 1 BAG IV ONE (08:11)
[2021-08-03] MEDS ORDERED: chlordiazePOXIDE 25 MG Cap PO ONE (08:31)
[2021-08-03] MEDS ORDERED: LORazepam 2 MG/ML SDV ONE (11:42)
[2021-08-03] MEDS ORDERED: Ondansetron 4 MG Tab.DIS PO PRN (11:45)
[2021-08-03] MEDS ORDERED: chlordiazePOXIDE 25 MG Cap PO SCH (13:00)
[2021-08-03 19:17] VITALS: BP 124/78; PULSE 84
== END 2021-08-03 13:00 | disposition home or self-care (01) ==
LOC: FB.ED 06:52
DX: F10.230 Alcohol dependence with withdrawal, uncomplicated (principal); Z88.2 Allergy status to sulfonamides; Y90.0 Blood alcohol level of less than 20 mg/100 ml
CPT/HCPCS: 36415; 80053; 80307; 83735; 85025; 96365; 96366; 96367; 96375; 96376; 99282; 99284-25; A9270-GY; J2060; J2405; J3411; J3475; J3480; J3490; J7030

== ENCOUNTER 2021-08-26 08:36 | Emergency (ER) | payer BC ==
[2021-08-26] MEDS ORDERED: LORazepam 2 MG/ML SDV ONE (08:59)
[2021-08-26] MEDS ORDERED: Sodium Chloride 0.9% 10 ML Syringe FLUSH PRN (09:01)
[2021-08-26] MEDS ORDERED: LORazepam 2 MG/ML SDV IVPUSH STA (09:01)
[2021-08-26] MEDS ORDERED: Diazepam 5 MG Tab ONE (09:01)
[2021-08-26] MEDS ORDERED: Ondansetron 4 MG/2 ML SDV IVPUSH STA (09:01)
[2021-08-26] MEDS ORDERED: Ondansetron 4 MG/2 ML SDV ONE (09:02)
[2021-08-26] MEDS ORDERED: Sodium Chloride 0.9% 1,000 ML IV SCH (09:15)
[2021-08-26] MEDS ORDERED: Diazepam 5 MG Tab PO STA (09:18)
[2021-08-26 09:40] LABS: ESTIMATED GFR > 60 (>60)
[2021-08-26] MEDS ORDERED: Magnesium Sulfate/Water 2 GM in Premix Bag 1 BAG IV ONE (09:50)
[2021-08-26] MEDS: Thiamine 100 MG in Sodium Chloride 0.9% 50 ML IV STA ×2 (09:57→10:08)
[2021-08-26 13:29] VITALS: BP 144/98; PULSE 90
== END 2021-08-26 12:34 | disposition home or self-care (01) ==
LOC: FB.ED 08:36
DX: K70.9 Alcoholic liver disease, unspecified (principal); F10.230 Alcohol dependence with withdrawal, uncomplicated; E83.42 Hypomagnesemia; F41.9 Anxiety disorder, unspecified; K21.9 Gastro-esophageal reflux disease without esophagitis; Z88.2 Allergy status to sulfonamides; Y90.0 Blood alcohol level of less than 20 mg/100 ml
CPT/HCPCS: 36415; 80053; 80307; 82150; 83690; 83735; 84100; 85025; 96361; 96365; 96366; 96367; 96375; 99283; 99284-25; A9270-GY; J2060; J2405; J3411; J3475; J3490; J7030

== ENCOUNTER 2021-09-21 11:29 | Emergency (ER) | payer BC ==
[2021-09-21] MEDS ORDERED: Sodium Chloride 0.9% 10 ML Syringe FLUSH PRN (11:40)
[2021-09-21] MEDS ORDERED: Ondansetron 4 MG/2 ML SDV IVPUSH STA (11:42)
[2021-09-21] MEDS ORDERED: hydrOXYzine HCl 50 MG/ML SDV IM ONE (11:42)
[2021-09-21] MEDS ORDERED: LORazepam 2 MG/ML SDV IVPUSH STA (11:42)
[2021-09-21] MEDS ORDERED: Thiamine 100 MG in Sodium Chloride 0.9% 50 ML IV STA (11:44)
[2021-09-21] MEDS ORDERED: Sodium Chloride 0.9% 1,000 ML IV SCH (11:45)
[2021-09-21 12:35] LABS: ESTIMATED GFR 105 mL/min (>60)
[2021-09-21] MEDS ORDERED: Thiamine 200 MG/2 ML MDV IVPUSH STA (13:54)
[2021-09-21 14:48] VITALS: BP 133/82; PULSE 74
== END 2021-09-21 14:40 | disposition home or self-care (01) ==
LOC: FB.ED 11:29
DX: K70.9 Alcoholic liver disease, unspecified (principal); F10.239 Alcohol dependence with withdrawal, unspecified; F19.10 Other psychoactive substance abuse, uncomplicated; K21.9 Gastro-esophageal reflux disease without esophagitis; Z88.2 Allergy status to sulfonamides; Z79.899 Other long term (current) drug therapy; Y90.0 Blood alcohol level of less than 20 mg/100 ml
CPT/HCPCS: 36415; 71045; 80053; 80307; 82150; 83690; 83735; 85025; 96365; 96366; 96372; 96375; 99283; 99284; J2060; J2405; J3410; J3411; J3490; J7030

== ENCOUNTER 2022-09-19 16:25 | Emergency (ER) | payer BC ==
[2022-09-19] MEDS ORDERED: Ondansetron 4 MG Tab.DIS PO ONE (16:26)
[2022-09-19] MEDS ORDERED: Sodium Chloride 0.9% 10 ML Syringe FLUSH PRN (17:01)
[2022-09-19] MEDS ORDERED: Sodium Chloride 0.9% 1,000 ML IV ONE (17:04)
[2022-09-19] MEDS ORDERED: Thiamine 200 MG/2 ML MDV IVPUSH ONE (17:04)
[2022-09-19] MEDS ORDERED: Folic Acid 50 MG/10 ML MDV IV ONE (17:05)
[2022-09-19] MEDS ORDERED: Pantoprazole 40 MG Vial IVPUSH ONE (17:06)
[2022-09-19 17:26] LABS: BASOPHILS PERCENT AUTO 0.2 % (0.3-3.8); LYMPHOCYTES ABSOLUTE AUTO 1.4 x10-3/uL (0.5-4.5); MEAN PLATELET VOLUME 6.4 fL (6.7-11.0); MONOCYTES ABSOLUTE AUTO 0.3 x10-3/uL (0.0-1.2); NEUTROPHILS ABSOLUTE AUTO 4.6 x10-3/uL (1.7-6.9); WHITE BLOOD CELL COUNT,WBC 6.4 x10-3/uL (3.2-10.1)
[2022-09-19 17:28] LABS: BLOOD UREA NITROGEN,BUN 13 mg/dL (7-18); BUN/CREATININE RATIO 14.4 (9-20); CALCIUM 9.5 mg/dL (8.6-10.2); CARBON DIOXIDE,CO2 33 mmol/L (21-32); CHLORIDE,CL 95 mmol/L (100-110); CREATININE 0.9 mg/dL (0.70-1.30); ESTIMATED GFR 119 mL/min (>60); GLUCOSE RANDOM 128 mg/dL (80-116); POTASSIUM,K 3.9 mmol/L (3.5-5.3); SODIUM,NA 139 mmol/L (135-145)
[2022-09-19 17:29] LABS: EOSINOPHILS PERCENT AUTO 0.3 % (0.1-6.8); HEMATOCRIT 44.4 % (38.3-50.1); HEMOGLOBIN 15.9 g/dL (12.9-17.7); MEAN CORPUSCULAR HEMOGLOBIN 30.5 pg (27.0-33.3); MEAN CORPUSCULAR HGB CONC 35.8 g/dL (28.7-35.3); MEAN CORPUSCULAR VOLUME 85.2 fL (80.8-98.7); MONOCYTES PERCENT AUTO 4.6 % (5.5-15.2); NEUTROPHILS PERCENT AUTO 72.9 % (40.3-71.8); PLATELET COUNT,PLT 265 x10(3)uL (117-477); RED BLOOD CELL COUNT 5.21 x10(6)uL (3.90-5.90); RED CELL DISTRIBUTION WIDTH 12.6 % (12.4-15.0)
[2022-09-19 17:34] LABS: A/G RATIO 1.4; ALANINE AMINOTRANSFERASE,ALT 28 U/L (12-36); ALBUMIN 4.6 g/dL (3.5-5.2); ALKALINE PHOSPHATASE 80 IU/L (56-112); ASPARTATE AMNIOTRANSFERASE,AST 28 IU/L (5-25); BILIRUBIN TOTAL 1.1 mg/dL (0.1-1.3); MAGNESIUM 2.1 mg/dL (1.8-2.5); PROTEIN TOTAL,TP 7.9 g/dL (6.0-8.0)
[2022-09-19 17:41] LABS: AMPHETAMINES SCREEN, URINE NEGATIVE (NEGATIVE); BARBITURATE SCREEN,URINE NEGATIVE (NEGATIVE); BENZODIAZEPINES SCREEN,URINE NEGATIVE (NEGATIVE); BUPRENORPHINE SCREEN,URINE NEGATIVE (NEGATIVE); METHADONE SCREEN, URINE NEGATIVE (NEGATIVE); METHAMPHETAMINE SCREEN, URINE NEGATIVE (NEGATIVE); OXYCODONE SCREEN,URINE NEGATIVE (NEGATIVE); PROPOXYPHENE SCREEN,URINE NEGATIVE (NEGATIVE); THC SCREEN,URINE NEGATIVE (NEGATIVE)
[2022-09-19] MEDS ORDERED: Ondansetron 4 MG/2 ML SDV IVPUSH ONE (17:42)
[2022-09-19 17:44] LABS: ETHANOL BLOOD MEDICAL 0.26 % (<0.03)
[2022-09-19 18:08] LABS: BILIRUBIN,URINE NEGATIVE (NEGATIVE); GLUCOSE,URINE NORMAL (NORMAL); KETONES,URINE 15 mg/dL (NEGATIVE); LEUKOCYTE ESTERASE,URINE NEGATIVE (NEGATIVE); NITRITE,URINE NEGATIVE (NEGATIVE); OCCULT BLOOD,URINE NEGATIVE (NEGATIVE); PROTEIN,URINE TRACE mg/dL (NEGATIVE); UROBILINOGEN,URINE 1 mg/dL (NEGATIVE)
[2022-09-19 18:12] LABS: APPEARANCE,URINE SLIGHTLY CLOUDY (CLEAR); BACTERIA,URINE FEW (NS); COLOR,URINE YELLOW (YELLOW); SQUAMOUS EPITHELIAL CELLS,UR FEW (NS,R,O); WBC,URINE 0-5 (0-5)
[2022-09-19] MEDS ORDERED: Gabapentin 300 MG Cap PO ONE (20:22)
[2022-09-19 20:58] VITALS: BP 122/84; PULSE 81
[2022-09-20] MEDS ORDERED: Folic Acid 50 MG/10 ML MDV IV ONE (17:05)
== END 2022-09-19 20:45 | disposition home or self-care (01) ==
LOC: FB.ED 16:25
DX: R11.2 Nausea with vomiting, unspecified (principal); F10.120 Alcohol abuse with intoxication, uncomplicated; E86.0 Dehydration; Z88.2 Allergy status to sulfonamides; Y90.1 Blood alcohol level of 20-39 mg/100 ml
CPT/HCPCS: 36415; 80053; 80307; 81001; 83690; 83735; 85025; 96361; 96374; 96375; 99283; 99284; A9270; C9113; J2405; J3411; J7030; Q0162; J3490

== ENCOUNTER 2022-10-04 10:23 | Emergency (ER) | payer BC ==
[2022-10-04 10:57] VITALS: BP 137/101; PULSE 86
[2022-10-04] MEDS ORDERED: Ondansetron 4 MG/2 ML SDV IVPUSH ONE (11:07)
[2022-10-04] MEDS ORDERED: Sodium Chloride 0.9% 1,000 ML IV ONE ×2 (11:07→12:30)
[2022-10-04] MEDS ORDERED: diphenhydrAMINE 50 MG/ML SDV IVPUSH ONE (11:08)
[2022-10-04] MEDS ORDERED: hydrOXYzine HCl 25 MG Tab PO ONE (11:08)
[2022-10-04 12:02] LABS: BILIRUBIN,URINE NEGATIVE (NEGATIVE); GLUCOSE,URINE NORMAL (NORMAL); KETONES,URINE NEGATIVE (NEGATIVE); LEUKOCYTE ESTERASE,URINE NEGATIVE (NEGATIVE); NITRITE,URINE NEGATIVE (NEGATIVE); OCCULT BLOOD,URINE NEGATIVE (NEGATIVE); PROTEIN,URINE NEGATIVE (NEGATIVE); UROBILINOGEN,URINE 1 mg/dL (NEGATIVE)
[2022-10-04 12:04] LABS: APPEARANCE,URINE CLEAR (CLEAR); BACTERIA,URINE RARE (NS); COLOR,URINE YELLOW (YELLOW); RBC,URINE 0-5 (0-5); SQUAMOUS EPITHELIAL CELLS,UR FEW (NS,R,O); WBC,URINE 0-5 (0-5)
[2022-10-04 12:18] LABS: AMPHETAMINES SCREEN, URINE NEGATIVE (NEGATIVE); BARBITURATE SCREEN,URINE NEGATIVE (NEGATIVE); BENZODIAZEPINES SCREEN,URINE NEGATIVE (NEGATIVE); BUPRENORPHINE SCREEN,URINE NEGATIVE (NEGATIVE); METHADONE SCREEN, URINE NEGATIVE (NEGATIVE); METHAMPHETAMINE SCREEN, URINE NEGATIVE (NEGATIVE); OXYCODONE SCREEN,URINE NEGATIVE (NEGATIVE); PROPOXYPHENE SCREEN,URINE NEGATIVE (NEGATIVE); THC SCREEN,URINE NEGATIVE (NEGATIVE)
== END 2022-10-04 13:43 | disposition home or self-care (01) ==
LOC: FB.ED 10:23
DX: F41.0 Panic disorder [episodic paroxysmal anxiety] (principal); F10.239 Alcohol dependence with withdrawal, unspecified; Z88.2 Allergy status to sulfonamides; Z79.899 Other long term (current) drug therapy
CPT/HCPCS: 80307; 81001; 96361; 96374; 96375; 99284; A9270; J1200; J2405; J7030

== ENCOUNTER 2022-10-19 05:58 | Emergency (ER) | payer BC ==
[2022-10-19] MEDS ORDERED: Ondansetron 4 MG/2 ML SDV IVPUSH ONE (06:17)
[2022-10-19] MEDS ORDERED: LORazepam 2 MG/ML SDV IVPUSH ONE (06:17)
[2022-10-19] MEDS ORDERED: Prochlorperazine 10 MG/2 ML SDV IVPUSH ONE (06:17)
[2022-10-19] MEDS: Sodium Chloride 0.9% 1,000 ML IV SCH ×2 (06:32→08:00)
[2022-10-19 06:40] LABS: HEMATOCRIT 44.3 % (38.3-50.1); HEMOGLOBIN 16.1 g/dL (12.9-17.7); MEAN CORPUSCULAR HEMOGLOBIN 32.3 pg (27.0-33.3); MEAN CORPUSCULAR HGB CONC 36.4 g/dL (28.7-35.3); MEAN CORPUSCULAR VOLUME 88.7 fL (80.8-98.7); MEAN PLATELET VOLUME 6.5 fL (6.7-11.0); PLATELET COUNT,PLT 248 x10(3)uL (117-477); RED BLOOD CELL COUNT 4.99 x10(6)uL (3.90-5.90); RED CELL DISTRIBUTION WIDTH 14.3 % (12.4-15.0); WHITE BLOOD CELL COUNT,WBC 6.7 x10-3/uL (3.2-10.1)
[2022-10-19 06:44] LABS: LIPASE 63 U/L (16-77)
[2022-10-19 06:46] LABS: BLOOD UREA NITROGEN,BUN 7 mg/dL (7-18); BUN/CREATININE RATIO 8.8 (9-20); CALCIUM 9.7 mg/dL (8.6-10.2); CARBON DIOXIDE,CO2 32 mmol/L (21-32); CHLORIDE,CL 97 mmol/L (100-110); CREATININE 0.8 mg/dL (0.70-1.30); ESTIMATED GFR 123 mL/min (>60); GLUCOSE RANDOM 105 mg/dL (80-116); INR 1.1 (1.00-1.24); POTASSIUM,K 3.6 mmol/L (3.5-5.3); PROTHROMBIN TIME 11.3 sec (9.0-11.1); SODIUM,NA 140 mmol/L (135-145)
[2022-10-19 06:52] LABS: A/G RATIO 1.4; ALANINE AMINOTRANSFERASE,ALT 112 U/L (12-36); ALBUMIN 4.5 g/dL (3.5-5.2); ALKALINE PHOSPHATASE 96 IU/L (56-112); AMYLASE 131 U/L (25-115); ASPARTATE AMNIOTRANSFERASE,AST 73 IU/L (5-25); BILIRUBIN TOTAL 1.5 mg/dL (0.1-1.3); ETHANOL BLOOD MEDICAL < 0.03 % (<0.03); MAGNESIUM 1.4 mg/dL (1.8-2.5); PHOSPHORUS 3.7 mg/dL (2.6-4.6); PROTEIN TOTAL,TP 7.8 g/dL (6.0-8.0)
[2022-10-19 07:04] LABS: LYMPHOCYTES PERCENT MAN 10 % (13-37); MONOCYTES PERCENT MAN 4 % (4-12); SEG NEUTROPHILS PERCENT MAN 86 % (46-82)
[2022-10-19 07:24] LABS: BILIRUBIN,URINE NEGATIVE (NEGATIVE); GLUCOSE,URINE NORMAL (NORMAL); KETONES,URINE NEGATIVE (NEGATIVE); LEUKOCYTE ESTERASE,URINE NEGATIVE (NEGATIVE); NITRITE,URINE NEGATIVE (NEGATIVE); OCCULT BLOOD,URINE NEGATIVE (NEGATIVE); PROTEIN,URINE NEGATIVE (NEGATIVE); UROBILINOGEN,URINE NORMAL (NEGATIVE)
[2022-10-19] MEDS ORDERED: Magnesium Sulfate/Water 2 GM in Premix Bag 1 BAG IV ONE (07:25)
[2022-10-19 07:28] LABS: AMPHETAMINES SCREEN, URINE NEGATIVE (NEGATIVE); BARBITURATE SCREEN,URINE NEGATIVE (NEGATIVE); BENZODIAZEPINES SCREEN,URINE NEGATIVE (NEGATIVE); BUPRENORPHINE SCREEN,URINE NEGATIVE (NEGATIVE); METHADONE SCREEN, URINE NEGATIVE (NEGATIVE); METHAMPHETAMINE SCREEN, URINE NEGATIVE (NEGATIVE); OXYCODONE SCREEN,URINE NEGATIVE (NEGATIVE); PROPOXYPHENE SCREEN,URINE NEGATIVE (NEGATIVE); THC SCREEN,URINE NEGATIVE (NEGATIVE)
[2022-10-19 07:30] LABS: APPEARANCE,URINE SLIGHTLY CLOUDY (CLEAR); BACTERIA,URINE FEW (NS); COLOR,URINE YELLOW (YELLOW); SQUAMOUS EPITHELIAL CELLS,UR FEW (NS,R,O); WBC,URINE 0-5 (0-5)
[2022-10-19] MEDS ORDERED: LORazepam 2 MG/ML SDV IVPUSH PRN (07:43)
[2022-10-19] MEDS ORDERED: Prochlorperazine 10 MG in Sodium Chloride 0.9% 50 ML IV PRN (07:47)
[2022-10-19] MEDS ORDERED: Ondansetron 4 MG/2 ML SDV IVPUSH SCH (08:00)
[2022-10-19] MEDS ORDERED: Ondansetron 4 MG/2 ML SDV IVPUSH PRN (08:02)
[2022-10-19 13:43] VITALS: BP 127/83; PULSE 66
== END 2022-10-19 13:42 | disposition home or self-care (01) ==
LOC: FB.ED 05:58
DX: F10.139 Alcohol abuse with withdrawal, unspecified (principal); Y90.0 Blood alcohol level of less than 20 mg/100 ml; E83.42 Hypomagnesemia; F55.8 Abuse of other non-psychoactive substances; K21.9 Gastro-esophageal reflux disease without esophagitis; Z88.2 Allergy status to sulfonamides; Z79.899 Other long term (current) drug therapy
CPT/HCPCS: 36415; 71045; 80053; 80307; 81001; 82150; 83690; 83735; 84100; 85025; 85610; 96361; 96374; 96375; 99284; 99285-25; J0780; J2060; J2405; J3475; J7030

== ENCOUNTER 2022-11-06 09:49 | Inpatient (IN) | payer BC ==
[2022-11-06] MEDS ORDERED: Sodium Chloride 0.9% 10 ML Syringe FLUSH PRN (10:12)
[2022-11-06] MEDS ORDERED: Prochlorperazine 10 MG/2 ML SDV IVPUSH ONE (10:13)
[2022-11-06] MEDS ORDERED: OLANZapine 10 MG Vial IM STA (10:14)
[2022-11-06] MEDS ORDERED: LORazepam 2 MG/ML SDV ONE (10:15)
[2022-11-06] MEDS ORDERED: LORazepam 2 MG/ML SDV IVPUSH ONE ×2 (10:15→14:49)
[2022-11-06] MEDS ORDERED: Sodium Chloride 0.9% 1,000 ML IV SCH (10:30)
[2022-11-06] MEDS ORDERED: Thiamine 200 MG/2 ML MDV IVPUSH ONE (10:33)
[2022-11-06 10:52] LABS: BASOPHILS PERCENT AUTO 0.5 % (0.3-3.8); EOSINOPHILS PERCENT AUTO 0.3 % (0.1-6.8); HEMOGLOBIN 14.4 g/dL (12.9-17.7); LYMPHOCYTES PERCENT AUTO 25.4 % (15.8-45.3); MEAN CORPUSCULAR HEMOGLOBIN 32.4 pg (27.0-33.3); MEAN CORPUSCULAR HGB CONC 35.9 g/dL (28.7-35.3); MEAN CORPUSCULAR VOLUME 90.1 fL (80.8-98.7); MEAN PLATELET VOLUME 6.7 fL (6.7-11.0); MONOCYTES ABSOLUTE AUTO 0.2 x10-3/uL (0.0-1.2); MONOCYTES PERCENT AUTO 4.8 % (5.5-15.2); NEUTROPHILS ABSOLUTE AUTO 2.6 x10-3/uL (1.7-6.9); PLATELET COUNT,PLT 219 x10(3)uL (117-477); RED BLOOD CELL COUNT 4.44 x10(6)uL (3.90-5.90); RED CELL DISTRIBUTION WIDTH 14.1 % (12.4-15.0); WHITE BLOOD CELL COUNT,WBC 3.8 x10-3/uL (3.2-10.1)
[2022-11-06 10:55] LABS: BLOOD UREA NITROGEN,BUN 8 mg/dL (7-18); CALCIUM 8.1 mg/dL (8.6-10.2); CARBON DIOXIDE,CO2 27 mmol/L (21-32); CHLORIDE,CL 101 mmol/L (100-110); CREATININE 0.8 mg/dL (0.70-1.30); EST CRCL DRUG DOSING (CG) 122.38 mL/min; ESTIMATED GFR 123 mL/min (>60); GLUCOSE RANDOM 118 mg/dL (80-116); POTASSIUM,K 3.1 mmol/L (3.5-5.3); SODIUM,NA 138 mmol/L (135-145)
[2022-11-06 10:59] LABS: ETHANOL BLOOD MEDICAL 0.23 % (<0.03)
[2022-11-06 11:01] LABS: A/G RATIO 1.6; ALANINE AMINOTRANSFERASE,ALT 35 U/L (12-36); ALBUMIN 3.9 g/dL (3.5-5.2); ALKALINE PHOSPHATASE 68 IU/L (56-112); AMYLASE 53 U/L (25-115); ASPARTATE AMNIOTRANSFERASE,AST 31 IU/L (5-25); BILIRUBIN TOTAL 0.9 mg/dL (0.1-1.3); MAGNESIUM 1.7 mg/dL (1.8-2.5); PHOSPHORUS 2.4 mg/dL (2.6-4.6); PROTEIN TOTAL,TP 6.3 g/dL (6.0-8.0)
[2022-11-06 11:02] LABS: THC SCREEN,URINE NEGATIVE (NEGATIVE)
[2022-11-06 11:03] LABS: AMPHETAMINES SCREEN, URINE NEGATIVE (NEGATIVE); BARBITURATE SCREEN,URINE NEGATIVE (NEGATIVE); BENZODIAZEPINES SCREEN,URINE NEGATIVE (NEGATIVE); BUPRENORPHINE SCREEN,URINE NEGATIVE (NEGATIVE); METHADONE SCREEN, URINE NEGATIVE (NEGATIVE); METHAMPHETAMINE SCREEN, URINE NEGATIVE (NEGATIVE); OXYCODONE SCREEN,URINE NEGATIVE (NEGATIVE); PROPOXYPHENE SCREEN,URINE NEGATIVE (NEGATIVE)
[2022-11-06] MEDS ORDERED: Potassium Chloride 20 MEQ Tab.ER PO ONE ×2 (11:18→15:15)
[2022-11-06] MEDS ORDERED: Potassium Chloride 20 MEQ in Premix Bag 1 BAG IV ONE (11:22)
[2022-11-06] MEDS ORDERED: Dextrose 5% in Water 1,000 ML IV SCH (11:30)
[2022-11-06] MEDS ORDERED: Sennosides/Docusate Sodium 50-8.6 MG Tab PO PRN (14:49)
[2022-11-06] MEDS ORDERED: Acetaminophen 325 MG Tab PO PRN (14:49)
[2022-11-06] MEDS ORDERED: Ondansetron 4 MG/2 ML SDV IV PRN (14:49)
[2022-11-06] MEDS: Dextrose 5%-0.9% NaCl 1,000 ML IV SCH (17:00)
[2022-11-06] MEDS ORDERED: LORazepam 2 MG/ML SDV IVPUSH PRN (18:37)
[2022-11-07] MEDS: Dextrose 5%-0.9% NaCl 1,000 ML IV SCH (03:42)
[2022-11-07 06:31] LABS: BASOPHILS PERCENT AUTO 0.5 % (0.3-3.8); EOSINOPHILS ABSOLUTE AUTO 0.1 x10-3/uL (0.0-0.6); EOSINOPHILS PERCENT AUTO 1.4 % (0.1-6.8); HEMATOCRIT 39.5 % (38.3-50.1); LYMPHOCYTES ABSOLUTE AUTO 1.1 x10-3/uL (0.5-4.5); LYMPHOCYTES PERCENT AUTO 30.6 % (15.8-45.3); MEAN CORPUSCULAR HEMOGLOBIN 32.2 pg (27.0-33.3); MEAN CORPUSCULAR HGB CONC 35.4 g/dL (28.7-35.3); MEAN PLATELET VOLUME 6.7 fL (6.7-11.0); MONOCYTES ABSOLUTE AUTO 0.3 x10-3/uL (0.0-1.2); MONOCYTES PERCENT AUTO 7.6 % (5.5-15.2); NEUTROPHILS ABSOLUTE AUTO 2.1 x10-3/uL (1.7-6.9); NEUTROPHILS PERCENT AUTO 59.9 % (40.3-71.8); PLATELET COUNT,PLT 181 x10(3)uL (117-477); RED BLOOD CELL COUNT 4.35 x10(6)uL (3.90-5.90); RED CELL DISTRIBUTION WIDTH 13.9 % (12.4-15.0); WHITE BLOOD CELL COUNT,WBC 3.6 x10-3/uL (3.2-10.1)
[2022-11-07 06:40] LABS: A/G RATIO 1.5; ALANINE AMINOTRANSFERASE,ALT 28 U/L (12-36); ALBUMIN 3.5 g/dL (3.5-5.2); ALKALINE PHOSPHATASE 62 IU/L (56-112); ASPARTATE AMNIOTRANSFERASE,AST 32 IU/L (5-25); BILIRUBIN TOTAL 1.9 mg/dL (0.1-1.3); BLOOD UREA NITROGEN,BUN 7 mg/dL (7-18); BUN/CREATININE RATIO 8.8 (9-20); CALCIUM 8.9 mg/dL (8.6-10.2); CARBON DIOXIDE,CO2 31 mmol/L (21-32); CHLORIDE,CL 103 mmol/L (100-110); CREATININE 0.8 mg/dL (0.70-1.30); EST CRCL DRUG DOSING (CG) 122.38 mL/min; ESTIMATED GFR 123 mL/min (>60); GLUCOSE RANDOM 101 mg/dL (80-116); POTASSIUM,K 4.2 mmol/L (3.5-5.3); PROTEIN TOTAL,TP 5.8 g/dL (6.0-8.0); SODIUM,NA 139 mmol/L (135-145)
[2022-11-07 07:55] VITALS: BP 133/80; PULSE 61
== END 2022-11-07 09:34 | disposition home or self-care (01) | DRG 775 ==
LOC: FB.ED 09:49 → FB.MS 15:19
PROVIDERS: ADMIT Emergency Medicine; ATTEND Family Medicine
DX: F10.239 Alcohol dependence with withdrawal, unspecified (principal); F10.251 Alcohol dependence with alcohol-induced psychotic disorder with hallucinations; E83.42 Hypomagnesemia; E87.6 Hypokalemia; F41.9 Anxiety disorder, unspecified; F33.1 Major depressive disorder, recurrent, moderate; R19.7 Diarrhea, unspecified; Z88.2 Allergy status to sulfonamides; Y90.9 Presence of alcohol in blood, level not specified; Z79.899 Other long term (current) drug therapy; K21.9 Gastro-esophageal reflux disease without esophagitis
CPT/HCPCS: 36415; 80053; 80307; 82150; 83690; 83735; 84100; 85025; 96361; 96365; 96366; 96372; 96375; 99222; 99238; 99285-25; A9270-GY; J0780; J2060; J2405; J3411; J3480; J3490; J7030; J7060

== ENCOUNTER 2022-11-25 07:41 | Emergency (ER) | payer BC ==
[2022-11-25] MEDS ORDERED: Prochlorperazine 10 MG/2 ML SDV IVPUSH ONE (07:53)
[2022-11-25] MEDS ORDERED: Thiamine 200 MG/2 ML MDV IVPUSH ONE (07:53)
[2022-11-25] MEDS ORDERED: Sodium Chloride 0.9% 10 ML Syringe FLUSH PRN (07:53)
[2022-11-25] MEDS ORDERED: LORazepam 2 MG/ML SDV IVPUSH ONE (07:55)
[2022-11-25] MEDS ORDERED: Prochlorperazine 10 MG in Sodium Chloride 0.9% 50 ML IV PRN (07:56)
[2022-11-25] MEDS ORDERED: Sodium Chloride 0.9% 1,000 ML IV SCH ×2 (08:00→09:00)
[2022-11-25 08:20] LABS: EOSINOPHILS PERCENT AUTO 0.1 % (0.1-6.8); LYMPHOCYTES ABSOLUTE AUTO 0.8 x10-3/uL (0.5-4.5); MONOCYTES ABSOLUTE AUTO 0.2 x10-3/uL (0.0-1.2); MONOCYTES PERCENT AUTO 3.2 % (5.5-15.2); RED BLOOD CELL COUNT 4.78 x10(6)uL (3.90-5.90); WHITE BLOOD CELL COUNT,WBC 6.2 x10-3/uL (3.2-10.1)
[2022-11-25 08:22] VITALS: BP 138/80; PULSE 87
[2022-11-25 08:22] LABS: BLOOD UREA NITROGEN,BUN 15 mg/dL (7-18); BUN/CREATININE RATIO 16.7 (9-20); CALCIUM 9.1 mg/dL (8.6-10.2); CARBON DIOXIDE,CO2 30 mmol/L (21-32); CHLORIDE,CL 94 mmol/L (100-110); CREATININE 0.9 mg/dL (0.70-1.30); ESTIMATED GFR 119 mL/min (>60); GLUCOSE RANDOM 93 mg/dL (80-116); POTASSIUM,K 3.6 mmol/L (3.5-5.3); SODIUM,NA 133 mmol/L (135-145)
[2022-11-25 08:23] LABS: BASOPHILS PERCENT AUTO 0.2 % (0.3-3.8); HEMATOCRIT 42.9 % (38.3-50.1); HEMOGLOBIN 15.6 g/dL (12.9-17.7); LYMPHOCYTES PERCENT AUTO 12.4 % (15.8-45.3); MEAN CORPUSCULAR HEMOGLOBIN 32.5 pg (27.0-33.3); MEAN CORPUSCULAR HGB CONC 36.3 g/dL (28.7-35.3); MEAN CORPUSCULAR VOLUME 89.8 fL (80.8-98.7); NEUTROPHILS ABSOLUTE AUTO 5.3 x10-3/uL (1.7-6.9); NEUTROPHILS PERCENT AUTO 84.1 % (40.3-71.8); PLATELET COUNT,PLT 257 x10(3)uL (117-477); RED CELL DISTRIBUTION WIDTH 13.6 % (12.4-15.0)
[2022-11-25 08:27] LABS: AMPHETAMINES SCREEN, URINE NEGATIVE (NEGATIVE); BENZODIAZEPINES SCREEN,URINE NEGATIVE (NEGATIVE); METHAMPHETAMINE SCREEN, URINE NEGATIVE (NEGATIVE); THC SCREEN,URINE NEGATIVE (NEGATIVE)
[2022-11-25 08:28] LABS: BARBITURATE SCREEN,URINE NEGATIVE (NEGATIVE); BUPRENORPHINE SCREEN,URINE NEGATIVE (NEGATIVE); METHADONE SCREEN, URINE NEGATIVE (NEGATIVE); OXYCODONE SCREEN,URINE NEGATIVE (NEGATIVE); PROPOXYPHENE SCREEN,URINE NEGATIVE (NEGATIVE)
[2022-11-25 08:29] LABS: A/G RATIO 1.6; ALANINE AMINOTRANSFERASE,ALT 26 U/L (12-36); ALBUMIN 4.4 g/dL (3.5-5.2); ALKALINE PHOSPHATASE 67 IU/L (56-112); AMYLASE 64 U/L (25-115); ASPARTATE AMNIOTRANSFERASE,AST 28 IU/L (5-25); BILIRUBIN TOTAL 1.2 mg/dL (0.1-1.3); MAGNESIUM 1.7 mg/dL (1.8-2.5); PHOSPHORUS 3.4 mg/dL (2.6-4.6); PROTEIN TOTAL,TP 7.1 g/dL (6.0-8.0)
[2022-11-25 08:37] LABS: ETHANOL BLOOD MEDICAL 0.11 % (<0.03); TSH ULTRASENSITIVE 0.32 IU/mL (0.36-3.74)
[2022-11-25] MEDS ORDERED: Diazepam 5 MG Tab PO ONE (09:45)
== END 2022-11-25 15:56 | disposition home or self-care (01) ==
LOC: FB.ED 07:41
DX: K70.9 Alcoholic liver disease, unspecified (principal); F10.229 Alcohol dependence with intoxication, unspecified; F10.232 Alcohol dependence with withdrawal with perceptual disturbance; F19.10 Other psychoactive substance abuse, uncomplicated; Z88.2 Allergy status to sulfonamides; Y90.0 Blood alcohol level of less than 20 mg/100 ml
CPT/HCPCS: 36415; 80053; 80307; 82150; 83690; 83735; 84100; 84439; 84443; 85025; 96361; 96374; 96375; 99284; A9270; J0780; J2060; J3411; J7030

== ENCOUNTER 2022-12-13 06:22 | Emergency (ER) | payer BC ==
[2022-12-13] MEDS ORDERED: Sodium Chloride 0.9% 1,000 ML IV ONE (06:34)
[2022-12-13] MEDS ORDERED: LORazepam 2 MG/ML SDV IVPUSH ONE (06:34)
[2022-12-13] MEDS ORDERED: Sodium Chloride 0.9% 10 ML Syringe FLUSH PRN (06:38)
[2022-12-13] MEDS ORDERED: Ondansetron 4 MG/2 ML SDV IVPUSH ONE (06:38)
[2022-12-13 07:19] LABS: BLOOD UREA NITROGEN,BUN 9 mg/dL (7-18); BUN/CREATININE RATIO 8.2 (9-20); CALCIUM 9.2 mg/dL (8.6-10.2); CARBON DIOXIDE,CO2 30 mmol/L (21-32); CHLORIDE,CL 98 mmol/L (100-110); CREATININE 1.1 mg/dL (0.70-1.30); EST CRCL DRUG DOSING (CG) 95.36 mL/min; ESTIMATED GFR 93 mL/min (>60); GLUCOSE RANDOM 97 mg/dL (80-116); POTASSIUM,K 3.3 mmol/L (3.5-5.3); SODIUM,NA 139 mmol/L (135-145)
[2022-12-13 07:23] LABS: ETHANOL BLOOD MEDICAL 0.1 % (<0.03)
[2022-12-13 07:25] LABS: A/G RATIO 1.4; ALANINE AMINOTRANSFERASE,ALT 26 U/L (12-36); ALBUMIN 4.3 g/dL (3.5-5.2); ALKALINE PHOSPHATASE 73 IU/L (56-112); ASPARTATE AMNIOTRANSFERASE,AST 22 IU/L (5-25); BILIRUBIN TOTAL 1.3 mg/dL (0.1-1.3); PROTEIN TOTAL,TP 7.3 g/dL (6.0-8.0)
[2022-12-13 07:31] LABS: BASOPHILS PERCENT AUTO 0.2 % (0.3-3.8); EOSINOPHILS PERCENT AUTO 0.1 % (0.1-6.8); HEMATOCRIT 44.4 % (38.3-50.1); HEMOGLOBIN 16.1 g/dL (12.9-17.7); LYMPHOCYTES ABSOLUTE AUTO 0.7 x10-3/uL (0.5-4.5); LYMPHOCYTES PERCENT AUTO 11.6 % (15.8-45.3); MEAN CORPUSCULAR HEMOGLOBIN 32.3 pg (27.0-33.3); MEAN CORPUSCULAR HGB CONC 36.2 g/dL (28.7-35.3); MEAN CORPUSCULAR VOLUME 89.2 fL (80.8-98.7); MEAN PLATELET VOLUME 7.1 fL (6.7-11.0); MONOCYTES ABSOLUTE AUTO 0.3 x10-3/uL (0.0-1.2); MONOCYTES PERCENT AUTO 4.2 % (5.5-15.2); NEUTROPHILS ABSOLUTE AUTO 5.3 x10-3/uL (1.7-6.9); NEUTROPHILS PERCENT AUTO 83.9 % (40.3-71.8); PLATELET COUNT,PLT 259 x10(3)uL (117-477); RED BLOOD CELL COUNT 4.97 x10(6)uL (3.90-5.90); RED CELL DISTRIBUTION WIDTH 12.9 % (12.4-15.0); WHITE BLOOD CELL COUNT,WBC 6.3 x10-3/uL (3.2-10.1)
[2022-12-13] MEDS ORDERED: Diazepam 5 MG Tab PO ONE ×2 (07:38→12:55)
[2022-12-13] MEDS ORDERED: LORazepam 2 MG/ML SDV IVPUSH PRN (07:39)
[2022-12-13] MEDS ORDERED: Potassium Chloride 20 MEQ Tab.ER PO ONE (07:41)
[2022-12-13] MEDS ORDERED: Thiamine 200 MG/2 ML MDV IVPUSH ONE (07:53)
[2022-12-13] MEDS ORDERED: Pantoprazole 40 MG Vial IVPUSH ONE (07:53)
[2022-12-13] MEDS ORDERED: Sodium Chloride 0.9% 1,000 ML IV SCH (08:00)
[2022-12-13] MEDS ORDERED: Prochlorperazine 10 MG/2 ML SDV IVPUSH PRN (08:14)
[2022-12-13 11:33] LABS: AMPHETAMINES SCREEN, URINE NEGATIVE (NEGATIVE); BARBITURATE SCREEN,URINE NEGATIVE (NEGATIVE); BENZODIAZEPINES SCREEN,URINE POSITIVE (NEGATIVE); METHADONE SCREEN, URINE NEGATIVE (NEGATIVE); METHAMPHETAMINE SCREEN, URINE NEGATIVE (NEGATIVE); OXYCODONE SCREEN,URINE NEGATIVE (NEGATIVE); PROPOXYPHENE SCREEN,URINE NEGATIVE (NEGATIVE); THC SCREEN,URINE NEGATIVE (NEGATIVE)
[2022-12-13 11:34] LABS: BUPRENORPHINE SCREEN,URINE NEGATIVE (NEGATIVE)
[2022-12-13 13:13] VITALS: BP 113/59; PULSE 88
== END 2022-12-13 13:20 | disposition home or self-care (01) ==
LOC: FB.ED 06:22
DX: F41.1 Generalized anxiety disorder (principal); K29.20 Alcoholic gastritis without bleeding; Z88.2 Allergy status to sulfonamides
CPT/HCPCS: 36415; 80053; 80307; 83690; 83735; 84100; 85025; 96361; 96374; 96375; 99284; A9270; C9113; J2060; J2405; J3411; J3490; J7030

== ENCOUNTER 2023-01-16 16:56 | Emergency (ER) | payer BC ==
[2023-01-16] MEDS ORDERED: LORazepam 2 MG/ML SDV IVPUSH ONE (17:32)
[2023-01-16] MEDS ORDERED: Prochlorperazine 10 MG/2 ML SDV IVPUSH ONE (17:32)
[2023-01-16] MEDS ORDERED: Thiamine 200 MG/2 ML MDV IVPUSH ONE (17:32)
[2023-01-16] MEDS ORDERED: LORazepam 2 MG/ML SDV IVPUSH PRN (17:35)
[2023-01-16 17:40] LABS: BASOPHILS PERCENT AUTO 0.3 % (0.3-3.8); EOSINOPHILS PERCENT AUTO 0.6 % (0.1-6.8); HEMATOCRIT 43.2 % (38.3-50.1); HEMOGLOBIN 15.6 g/dL (12.9-17.7); LYMPHOCYTES ABSOLUTE AUTO 2.1 x10-3/uL (0.5-4.5); LYMPHOCYTES PERCENT AUTO 34.7 % (15.8-45.3); MEAN CORPUSCULAR HEMOGLOBIN 32.1 pg (27.0-33.3); MEAN CORPUSCULAR HGB CONC 36.1 g/dL (28.7-35.3); MEAN PLATELET VOLUME 6.9 fL (6.7-11.0); MONOCYTES ABSOLUTE AUTO 0.3 x10-3/uL (0.0-1.2); MONOCYTES PERCENT AUTO 5.4 % (5.5-15.2); NEUTROPHILS ABSOLUTE AUTO 3.5 x10-3/uL (1.7-6.9); PLATELET COUNT,PLT 279 x10(3)uL (117-477); RED BLOOD CELL COUNT 4.85 x10(6)uL (3.90-5.90); RED CELL DISTRIBUTION WIDTH 12.6 % (12.4-15.0); WHITE BLOOD CELL COUNT,WBC 5.9 x10-3/uL (3.2-10.1)
[2023-01-16 17:44] LABS: AMPHETAMINES SCREEN, URINE NEGATIVE (NEGATIVE); BARBITURATE SCREEN,URINE NEGATIVE (NEGATIVE); BENZODIAZEPINES SCREEN,URINE NEGATIVE (NEGATIVE); METHADONE SCREEN, URINE NEGATIVE (NEGATIVE); METHAMPHETAMINE SCREEN, URINE NEGATIVE (NEGATIVE); OXYCODONE SCREEN,URINE NEGATIVE (NEGATIVE); THC SCREEN,URINE NEGATIVE (NEGATIVE)
[2023-01-16 17:45] LABS: BUPRENORPHINE SCREEN,URINE NEGATIVE (NEGATIVE)
[2023-01-16] MEDS ORDERED: Sodium Chloride 0.9% 1,000 ML IV SCH ×2 (17:45→18:45)
[2023-01-16 17:47] LABS: BLOOD UREA NITROGEN,BUN 10 mg/dL (7-18); BUN/CREATININE RATIO 11.1 (9-20); CALCIUM 9.3 mg/dL (8.6-10.2); CARBON DIOXIDE,CO2 31 mmol/L (21-32); CHLORIDE,CL 101 mmol/L (100-110); CREATININE 0.9 mg/dL (0.70-1.30); ESTIMATED GFR 119 mL/min (>60); GLUCOSE RANDOM 109 mg/dL (80-116); POTASSIUM,K 3.4 mmol/L (3.5-5.3); SODIUM,NA 144 mmol/L (135-145)
[2023-01-16 17:50] LABS: PHOSPHORUS 2.8 mg/dL (2.6-4.6)
[2023-01-16 17:53] LABS: A/G RATIO 1.3; ALANINE AMINOTRANSFERASE,ALT 27 U/L (12-36); ALBUMIN 4.3 g/dL (3.5-5.2); ALKALINE PHOSPHATASE 69 IU/L (56-112); AMYLASE 81 U/L (25-115); ASPARTATE AMNIOTRANSFERASE,AST 26 IU/L (5-25); PROTEIN TOTAL,TP 7.5 g/dL (6.0-8.0)
[2023-01-16 17:55] LABS: ETHANOL BLOOD MEDICAL 0.3 % (<0.03)
[2023-01-16] MEDS ORDERED: Sodium Chloride 0.9% 1,000 ML IV ONE (20:27)
[2023-01-17 04:23] VITALS: BP 115/68; PULSE 89
== END 2023-01-16 21:56 | disposition home or self-care (01) ==
LOC: FB.ED 16:56
DX: F10.239 Alcohol dependence with withdrawal, unspecified (principal); Z79.899 Other long term (current) drug therapy; Z88.2 Allergy status to sulfonamides
CPT/HCPCS: 36415; 80053; 80307; 82150; 83690; 83735; 84100; 85025; 96361; 96374; 96375; 99283; 99284-25; J0780; J2060; J3411; J7030

== ENCOUNTER 2023-01-26 09:53 | Emergency (ER) | payer BC ==
[2023-01-26] MEDS: Sodium Chloride 0.9% 1,000 ML IV SCH (10:35)
[2023-01-26] MEDS: Ondansetron 4 MG/2 ML SDV IVPUSH ONE ×2 (10:35→13:06)
[2023-01-26] MEDS: Ketorolac 30 MG/ML SDV IVPUSH ONE (10:35)
[2023-01-26] MEDS: diphenhydrAMINE 50 MG/ML SDV IVPUSH ONE (10:49)
[2023-01-26 11:06] LABS: BASOPHILS PERCENT AUTO 0.3 % (0.3-3.8); EOSINOPHILS PERCENT AUTO 0.1 % (0.1-6.8); HEMATOCRIT 46.1 % (38.3-50.1); HEMOGLOBIN 16.3 g/dL (12.9-17.7); LYMPHOCYTES PERCENT AUTO 10.5 % (15.8-45.3); MEAN CORPUSCULAR HEMOGLOBIN 32.1 pg (27.0-33.3); MEAN CORPUSCULAR HGB CONC 35.2 g/dL (28.7-35.3); MEAN PLATELET VOLUME 6.9 fL (6.7-11.0); MONOCYTES ABSOLUTE AUTO 0.4 x10-3/uL (0.0-1.2); MONOCYTES PERCENT AUTO 4.3 % (5.5-15.2); NEUTROPHILS ABSOLUTE AUTO 7.8 x10-3/uL (1.7-6.9); NEUTROPHILS PERCENT AUTO 84.8 % (40.3-71.8); PLATELET COUNT,PLT 279 x10(3)uL (117-477); RED BLOOD CELL COUNT 5.07 x10(6)uL (3.90-5.90); RED CELL DISTRIBUTION WIDTH 13.6 % (12.4-15.0); WHITE BLOOD CELL COUNT,WBC 9.2 x10-3/uL (3.2-10.1)
[2023-01-26 11:07] LABS: BLOOD UREA NITROGEN,BUN 14 mg/dL (7-18); CALCIUM 9.5 mg/dL (8.6-10.2); CARBON DIOXIDE,CO2 34 mmol/L (21-32); CHLORIDE,CL 97 mmol/L (100-110); EST CRCL DRUG DOSING (CG) 104.89 mL/min; ESTIMATED GFR 104 mL/min (>60); GLUCOSE RANDOM 91 mg/dL (80-116); MAGNESIUM 1.8 mg/dL (1.8-2.5); POTASSIUM,K 3.3 mmol/L (3.5-5.3); SODIUM,NA 144 mmol/L (135-145)
[2023-01-26 11:34] LABS: BILIRUBIN,URINE NEGATIVE (NEGATIVE); GLUCOSE,URINE NORMAL (NORMAL); KETONES,URINE 50 mg/dL (NEGATIVE); LEUKOCYTE ESTERASE,URINE NEGATIVE (NEGATIVE); NITRITE,URINE NEGATIVE (NEGATIVE); OCCULT BLOOD,URINE NEGATIVE (NEGATIVE); PROTEIN,URINE NEGATIVE (NEGATIVE); UROBILINOGEN,URINE NORMAL (NEGATIVE)
[2023-01-26 11:37] LABS: AMPHETAMINES SCREEN, URINE NEGATIVE (NEGATIVE); BARBITURATE SCREEN,URINE NEGATIVE (NEGATIVE); BENZODIAZEPINES SCREEN,URINE NEGATIVE (NEGATIVE); METHADONE SCREEN, URINE NEGATIVE (NEGATIVE); METHAMPHETAMINE SCREEN, URINE NEGATIVE (NEGATIVE); OXYCODONE SCREEN,URINE NEGATIVE (NEGATIVE); THC SCREEN,URINE NEGATIVE (NEGATIVE)
[2023-01-26 11:38] LABS: BUPRENORPHINE SCREEN,URINE NEGATIVE (NEGATIVE)
[2023-01-26] MEDS: Sodium Chloride 0.9% 1,000 ML IV ONE (11:40)
[2023-01-26 11:44] LABS: APPEARANCE,URINE CLEAR (CLEAR); BACTERIA,URINE FEW (NS); COLOR,URINE YELLOW (YELLOW); SQUAMOUS EPITHELIAL CELLS,UR OCCASIONAL (NS,R,O); WBC,URINE 0-5 (0-5)
[2023-01-26 11:48] VITALS: BP 108/55; PULSE 78
[2023-01-26] MEDS: Potassium Chloride 20 MEQ Tab.ER PO ONE (13:02)
== END 2023-01-26 13:20 | disposition home or self-care (01) ==
LOC: FB.ED 09:53
DX: E86.0 Dehydration (principal); R82.4 Acetonuria; R10.9 Unspecified abdominal pain; E87.6 Hypokalemia; Z79.899 Other long term (current) drug therapy; Z88.2 Allergy status to sulfonamides
CPT/HCPCS: 36415; 80048; 80307; 81001; 83690; 83735; 85025; 86140; 96361; 96374; 96375; 99284; 99284-25; A9270-GY; J1200; J1885; J2405; J7030

== ENCOUNTER 2023-02-22 10:44 | Inpatient (IN) | payer BC ==
[2023-02-22] MEDS ORDERED: Ondansetron 4 MG/2 ML SDV IVPUSH ONE ×2 (11:18→15:08)
[2023-02-22] MEDS ORDERED: Ketorolac 30 MG/ML SDV IVPUSH ONE (11:29)
[2023-02-22] MEDS ORDERED: Sodium Chloride 0.9% 1,000 ML IV ONE (11:29)
[2023-02-22] MEDS ORDERED: diphenhydrAMINE 50 MG/ML SDV IVPUSH ONE (11:29)
[2023-02-22] MEDS ORDERED: Sodium Chloride 0.9% 1,000 ML IV SCH (11:30)
[2023-02-22 11:59] LABS: HEMATOCRIT 54.5 % (38.3-50.1); HEMOGLOBIN 19.2 g/dL (12.9-17.7); MEAN CORPUSCULAR HGB CONC 35.1 g/dL (28.7-35.3); MEAN CORPUSCULAR VOLUME 93.8 fL (80.8-98.7); PLATELET COUNT,PLT 269 x10(3)uL (117-477); RED BLOOD CELL COUNT 5.81 x10(6)uL (3.90-5.90); RED CELL DISTRIBUTION WIDTH 13.6 % (12.4-15.0); WHITE BLOOD CELL COUNT,WBC 21.5 x10-3/uL (3.2-10.1)
[2023-02-22 12:11] LABS: A/G RATIO 1.2; ALANINE AMINOTRANSFERASE,ALT 57 U/L (12-36); ALBUMIN 4.6 g/dL (3.5-5.2); ALKALINE PHOSPHATASE 88 IU/L (56-112); ASPARTATE AMNIOTRANSFERASE,AST 53 IU/L (5-25); BILIRUBIN TOTAL 1.4 mg/dL (0.1-1.3); BLOOD UREA NITROGEN,BUN 37 mg/dL (7-18); BUN/CREATININE RATIO 8.6 (9-20); CALCIUM 8.9 mg/dL (8.6-10.2); CARBON DIOXIDE,CO2 34 mmol/L (21-32); CHLORIDE,CL 90 mmol/L (100-110); EST CRCL DRUG DOSING (CG) 26.02 mL/min; ESTIMATED GFR 18 mL/min (>60); GLUCOSE RANDOM 154 mg/dL (80-116); MAGNESIUM 1.6 mg/dL (1.8-2.5); POTASSIUM,K 2.9 mmol/L (3.5-5.3); PROTEIN TOTAL,TP 8.3 g/dL (6.0-8.0); SODIUM,NA 139 mmol/L (135-145)
[2023-02-22 12:12] LABS: LYMPHOCYTES PERCENT MAN 7 % (13-37); MONOCYTES PERCENT MAN 8 % (4-12); SEG NEUTROPHILS PERCENT MAN 85 % (46-82)
[2023-02-22 12:15] LABS: CREATININE 4.3 mg/dL (0.70-1.30)
[2023-02-22] MEDS ORDERED: Potassium Chloride 20 MEQ in Premix Bag 1 BAG IV ONE (12:47)
[2023-02-22 12:49] LABS: BILIRUBIN,URINE SMALL (NEGATIVE); GLUCOSE,URINE NORMAL (NORMAL); KETONES,URINE 15 mg/dL (NEGATIVE); LEUKOCYTE ESTERASE,URINE NEGATIVE (NEGATIVE); NITRITE,URINE NEGATIVE (NEGATIVE); OCCULT BLOOD,URINE LARGE (NEGATIVE); PROTEIN,URINE 100 mg/dL (NEGATIVE); UROBILINOGEN,URINE NORMAL (NEGATIVE)
[2023-02-22 12:59] LABS: APPEARANCE,URINE CLOUDY (CLEAR); BACTERIA,URINE MODERATE (NS); CALCIUM OXALATE CRYSTALS,URINE FEW (NS); COLOR,URINE YELLOW (YELLOW); HYALINE CASTS,URINE MANY (NS); RBC,URINE 0-5 (0-5); SQUAMOUS EPITHELIAL CELLS,UR FEW (NS,R,O); WBC,URINE 0-5 (0-5)
[2023-02-22 13:00] LABS: AMPHETAMINES SCREEN, URINE NEGATIVE (NEGATIVE); BARBITURATE SCREEN,URINE NEGATIVE (NEGATIVE); BENZODIAZEPINES SCREEN,URINE NEGATIVE (NEGATIVE); BUPRENORPHINE SCREEN,URINE NEGATIVE (NEGATIVE); METHADONE SCREEN, URINE NEGATIVE (NEGATIVE); METHAMPHETAMINE SCREEN, URINE NEGATIVE (NEGATIVE); OXYCODONE SCREEN,URINE NEGATIVE (NEGATIVE); THC SCREEN,URINE NEGATIVE (NEGATIVE)
[2023-02-22] MEDS ORDERED: cefTRIAXone 2 GM Vial IVPUSH ONE (13:09)
[2023-02-22] MEDS ORDERED: Dextrose 5%-0.45% NaCl 1,000 ML IV SCH (13:15)
[2023-02-22] MEDS ORDERED: cefTRIAXone 1 GM Vial IVPUSH ONE (13:15)
[2023-02-22] MEDS ORDERED: cefTRIAXone 1 GM Vial IV ONE (13:15)
[2023-02-22 13:31] LABS: INFLUENZA A NAA NEGATIVE (NEGATIVE); INFLUENZA B NAA NEGATIVE (NEGATIVE); RESPIRATORY SYNCYTIAL VIR NAA NEGATIVE (NEGATIVE)
[2023-02-22 13:44] LABS: CORONAVIRUS COVID-19 NAA POSITIVE (NEGATIVE)
[2023-02-22] MEDS ORDERED: Polyethylene Glycol 3350 Powder 17 GM Packet PO PRN (16:31)
[2023-02-22] MEDS ORDERED: Ondansetron 4 MG/2 ML SDV IV PRN (16:31)
[2023-02-22] MEDS ORDERED: LORazepam 2 MG/ML SDV IVPUSH PRN (16:59)
[2023-02-22] MEDS: NS + KCl 20mEq/L 1,000 ML IV SCH (17:15)
[2023-02-22 19:31] LABS: BLOOD UREA NITROGEN,BUN 43 mg/dL (7-18); BUN/CREATININE RATIO 11.6 (9-20); CALCIUM 8.7 mg/dL (8.6-10.2); CARBON DIOXIDE,CO2 34 mmol/L (21-32); CHLORIDE,CL 94 mmol/L (100-110); EST CRCL DRUG DOSING (CG) 27.23 mL/min; ESTIMATED GFR 22 mL/min (>60); GLUCOSE RANDOM 139 mg/dL (80-116); MAGNESIUM 2.2 mg/dL (1.8-2.5); POTASSIUM,K 3.4 mmol/L (3.5-5.3); SODIUM,NA 137 mmol/L (135-145)
[2023-02-22 19:41] LABS: CREATININE 3.7 mg/dL (0.70-1.30)
[2023-02-23] MEDS: NS + KCl 20mEq/L 1,000 ML IV SCH (01:16)
[2023-02-23 01:21] VITALS: BP 112/77; PULSE 75
== END 2023-02-23 02:03 | DRG 460 ==
LOC: FB.ED 10:44 → FB.MS 16:20
PROVIDERS: ADMIT Family Medicine; ATTEND Family Medicine
DX: N17.9 Acute kidney failure, unspecified (principal); M62.82 Rhabdomyolysis; U07.1 COVID-19; N39.0 Urinary tract infection, site not specified; F14.10 Cocaine abuse, uncomplicated; F17.210 Nicotine dependence, cigarettes, uncomplicated; E87.6 Hypokalemia; E83.42 Hypomagnesemia; E86.0 Dehydration; F10.239 Alcohol dependence with withdrawal, unspecified; F19.10 Other psychoactive substance abuse, uncomplicated; I21.A1 Myocardial infarction type 2; F41.1 Generalized anxiety disorder; F32.9 Major depressive disorder, single episode, unspecified; Z88.2 Allergy status to sulfonamides; Z79.899 Other long term (current) drug therapy
CPT/HCPCS: 0241U; 36415; 71045; 74176; 80048; 80053; 80307; 81001; 82550; 83605; 83690; 83735; 84484; 85025; 86140; 87040; 87086; 93005; J0696; J1200; J1885; J2405; J3475; J3480; J3490; J7030; J7042

== ENCOUNTER 2023-05-12 02:49 | Emergency (ER) | payer BC ==
[2023-05-12] MEDS ORDERED: Sodium Chloride 0.9% 10 ML Syringe FLUSH PRN (02:56)
[2023-05-12] MEDS ORDERED: LORazepam 2 MG/ML SDV IVPUSH PRN ×2 (03:02→03:11)
[2023-05-12 03:07] LABS: HEMATOCRIT 48.8 % (38.3-50.1); HEMOGLOBIN 17.8 g/dL (12.9-17.7); MEAN CORPUSCULAR HEMOGLOBIN 32.5 pg (27.0-33.3); MEAN CORPUSCULAR HGB CONC 36.4 g/dL (28.7-35.3); MEAN CORPUSCULAR VOLUME 89.4 fL (80.8-98.7); MEAN PLATELET VOLUME 7.6 fL (6.7-11.0); PLATELET COUNT,PLT 392 x10(3)uL (117-477); RED BLOOD CELL COUNT 5.46 x10(6)uL (3.90-5.90); WHITE BLOOD CELL COUNT,WBC 21.1 x10-3/uL (3.2-10.1)
[2023-05-12 03:12] LABS: LIPASE 17 U/L (16-77)
[2023-05-12 03:13] LABS: ETHANOL BLOOD MEDICAL < 0.03 % (<0.03)
[2023-05-12] MEDS: LORazepam 2 MG/ML SDV IVPUSH STA (03:14)
[2023-05-12] MEDS: Thiamine 200 MG/2 ML MDV IVPUSH ONE (03:14)
[2023-05-12] MEDS: Ondansetron 4 MG/2 ML SDV IVPUSH ONE (03:14)
[2023-05-12] MEDS: Sodium Chloride 0.9% 1,000 ML IV SCH ×2 (03:14→18:16)
[2023-05-12 03:24] LABS: A/G RATIO 1.3; ALBUMIN 4.9 g/dL (3.5-5.2); ALKALINE PHOSPHATASE 112 IU/L (56-112); AMYLASE 88 U/L (25-115); ASPARTATE AMNIOTRANSFERASE,AST 87 IU/L (5-25); BILIRUBIN TOTAL 2.3 mg/dL (0.1-1.3); BLOOD UREA NITROGEN,BUN 32 mg/dL (7-18); BUN/CREATININE RATIO 8.2 (9-20); CARBON DIOXIDE,CO2 31 mmol/L (21-32); ESTIMATED GFR 20 mL/min (>60); GLUCOSE RANDOM 215 mg/dL (80-116); MAGNESIUM 1.6 mg/dL (1.8-2.5); PHOSPHORUS 5.2 mg/dL (2.6-4.6); POTASSIUM,K 3.1 mmol/L (3.5-5.3); PROTEIN TOTAL,TP 8.8 g/dL (6.0-8.0); SODIUM,NA 133 mmol/L (135-145)
[2023-05-12 03:26] LABS: ALANINE AMINOTRANSFERASE,ALT 170 U/L (12-36); CHLORIDE,CL 79 mmol/L (100-110); CREATINE KINASE,CK 312 IU/L (60-160); CREATININE 3.9 mg/dL (0.70-1.30)
[2023-05-12 03:29] LABS: LYMPHOCYTES PERCENT MAN 5 % (13-37); MONOCYTES PERCENT MAN 9 % (4-12); SEG NEUTROPHILS PERCENT MAN 86 % (46-82)
[2023-05-12] MEDS: Magnesium Sulfate/Water 2 GM in Premix Bag 1 BAG IV ONE (04:31)
[2023-05-12] MEDS: Potassium Chloride 20 MEQ Tab.ER PO ONE (04:31)
[2023-05-12] MEDS: NS + KCl 20mEq/L 1,000 ML IV SCH (04:49)
[2023-05-12 12:36] LABS: AMPHETAMINES SCREEN, URINE NEGATIVE (NEGATIVE); BARBITURATE SCREEN,URINE NEGATIVE (NEGATIVE)
[2023-05-12 12:37] LABS: BENZODIAZEPINES SCREEN,URINE POSITIVE (NEGATIVE); METHADONE SCREEN, URINE NEGATIVE (NEGATIVE); METHAMPHETAMINE SCREEN, URINE NEGATIVE (NEGATIVE); OXYCODONE SCREEN,URINE NEGATIVE (NEGATIVE); THC SCREEN,URINE NEGATIVE (NEGATIVE)
[2023-05-12 12:38] LABS: BUPRENORPHINE SCREEN,URINE NEGATIVE (NEGATIVE)
[2023-05-12] MEDS ORDERED: Ondansetron 4 MG/2 ML SDV IVPUSH PRN (14:53)
[2023-05-12] MEDS ORDERED: Prochlorperazine 10 MG/2 ML SDV IVPUSH PRN (14:54)
[2023-05-12] MEDS: Prochlorperazine 10 MG/2 ML SDV IVPUSH ONE (15:00)
[2023-05-12 19:09] LABS: BASOPHILS PERCENT AUTO 0.2 % (0.3-3.8); EOSINOPHILS PERCENT AUTO 0.3 % (0.1-6.8); HEMOGLOBIN 12.2 g/dL (12.9-17.7); LYMPHOCYTES ABSOLUTE AUTO 1.2 x10-3/uL (0.5-4.5); LYMPHOCYTES PERCENT AUTO 14.7 % (15.8-45.3); MEAN CORPUSCULAR HEMOGLOBIN 32.6 pg (27.0-33.3); MEAN CORPUSCULAR HGB CONC 35.9 g/dL (28.7-35.3); MEAN CORPUSCULAR VOLUME 90.8 fL (80.8-98.7); MONOCYTES ABSOLUTE AUTO 0.9 x10-3/uL (0.0-1.2); MONOCYTES PERCENT AUTO 10.5 % (5.5-15.2); NEUTROPHILS ABSOLUTE AUTO 6.2 x10-3/uL (1.7-6.9); NEUTROPHILS PERCENT AUTO 74.3 % (40.3-71.8); PLATELET COUNT,PLT 183 x10(3)uL (117-477); RED BLOOD CELL COUNT 3.74 x10(6)uL (3.90-5.90); RED CELL DISTRIBUTION WIDTH 14.2 % (12.4-15.0); WHITE BLOOD CELL COUNT,WBC 8.4 x10-3/uL (3.2-10.1)
[2023-05-12] MEDS: Ondansetron 4 MG/2 ML SDV IVPUSH SCH ×2 (19:18)
[2023-05-12 19:26] LABS: A/G RATIO 1.4; ALANINE AMINOTRANSFERASE,ALT 114 U/L (12-36); ALBUMIN 3.1 g/dL (3.5-5.2); ALKALINE PHOSPHATASE 65 IU/L (56-112); ASPARTATE AMNIOTRANSFERASE,AST 114 IU/L (5-25); BILIRUBIN TOTAL 1.8 mg/dL (0.1-1.3); BLOOD UREA NITROGEN,BUN 30 mg/dL (7-18); CALCIUM 8.1 mg/dL (8.6-10.2); CARBON DIOXIDE,CO2 38 mmol/L (21-32); CHLORIDE,CL 94 mmol/L (100-110); ESTIMATED GFR 45 mL/min (>60); GLUCOSE RANDOM 130 mg/dL (80-116); MAGNESIUM 2.2 mg/dL (1.8-2.5); POTASSIUM,K 3.3 mmol/L (3.5-5.3); PROTEIN TOTAL,TP 5.4 g/dL (6.0-8.0); SODIUM,NA 135 mmol/L (135-145)
[2023-05-12 19:53] LABS: CREATINE KINASE,CK 1711 IU/L (60-160)
[2023-05-12 20:37] VITALS: BP 111/72; PULSE 86
== END 2023-05-12 20:44 ==
LOC: FB.ED 02:49
DX: K29.20 Alcoholic gastritis without bleeding (principal); E86.0 Dehydration; N17.9 Acute kidney failure, unspecified; M62.82 Rhabdomyolysis; K70.9 Alcoholic liver disease, unspecified; F41.1 Generalized anxiety disorder; F33.1 Major depressive disorder, recurrent, moderate; E83.42 Hypomagnesemia; E87.6 Hypokalemia; K76.7 Hepatorenal syndrome; Z88.2 Allergy status to sulfonamides; Z79.899 Other long term (current) drug therapy
CPT/HCPCS: 36415; 71045; 80053; 80307; 82150; 82550; 83690; 83735; 84100; 85025; 96361; 96365; 96366; 96367; 96375; 99285; 99285-25; A9270-GY; J0780; J2060; J2405; J3411; J3475; J3480; J7030

== ENCOUNTER 2023-05-30 22:21 | Emergency (ER) | payer BC ==
[2023-05-30] MEDS: Sodium Chloride 0.9% 1,000 ML IV SCH (22:55)
[2023-05-30] MEDS: Sodium Chloride 0.9% 10 ML Syringe FLUSH PRN (22:55)
[2023-05-30] MEDS: LORazepam 2 MG/ML SDV IVPUSH ONE (22:56)
[2023-05-30] MEDS: Ondansetron 4 MG/2 ML SDV IVPUSH ONE ×2 (22:57→23:53)
[2023-05-30] MEDS: Thiamine 200 MG/2 ML MDV IVPUSH ONE (23:00)
[2023-05-30] MEDS: Prochlorperazine 10 MG/2 ML SDV IVPUSH ONE (23:02)
[2023-05-30 23:13] LABS: LIPASE 37 U/L (16-77)
[2023-05-30 23:14] LABS: INR 1.26 (1.00-1.24); PROTHROMBIN TIME 12.9 sec (9.0-11.1)
[2023-05-30 23:17] LABS: A/G RATIO 1.4; ALANINE AMINOTRANSFERASE,ALT 37 U/L (12-36); ALBUMIN 5.2 g/dL (3.5-5.2); ALKALINE PHOSPHATASE 73 IU/L (56-112); AMYLASE 84 U/L (25-115); ASPARTATE AMNIOTRANSFERASE,AST 33 IU/L (5-25); BILIRUBIN TOTAL 1.3 mg/dL (0.1-1.3); BLOOD UREA NITROGEN,BUN 43 mg/dL (7-18); BUN/CREATININE RATIO 21.5 (9-20); CALCIUM 10.6 mg/dL (8.6-10.2); CARBON DIOXIDE,CO2 37 mmol/L (21-32); EST CRCL DRUG DOSING (CG) 52.45 mL/min; ESTIMATED GFR 45 mL/min (>60); GLUCOSE RANDOM 143 mg/dL (80-116); MAGNESIUM 2.6 mg/dL (1.8-2.5); PHOSPHORUS 2.8 mg/dL (2.6-4.6); SODIUM,NA 139 mmol/L (135-145)
[2023-05-30 23:22] LABS: CHLORIDE,CL 89 mmol/L (100-110)
[2023-05-30 23:25] LABS: TROPONIN I 5.7 pg/mL (4.0-60.3)
[2023-05-30 23:27] LABS: HEMATOCRIT 46.2 % (38.3-50.1); HEMOGLOBIN 16.2 g/dL (12.9-17.7); MEAN CORPUSCULAR HEMOGLOBIN 31.9 pg (27.0-33.3); MEAN CORPUSCULAR HGB CONC 35.1 g/dL (28.7-35.3); MEAN PLATELET VOLUME 7.2 fL (6.7-11.0); PLATELET COUNT,PLT 386 x10(3)uL (117-477); RED BLOOD CELL COUNT 5.08 x10(6)uL (3.90-5.90); RED CELL DISTRIBUTION WIDTH 14.9 % (12.4-15.0); WHITE BLOOD CELL COUNT,WBC 13.5 x10-3/uL (3.2-10.1)
[2023-05-30] MEDS: Prochlorperazine 10 MG/2 ML SDV ONE (23:42)
[2023-05-30 23:46] LABS: ETHANOL BLOOD MEDICAL < 0.03 % (<0.03)
[2023-05-31] MEDS: NS + KCl 20mEq/L 1,000 ML IV SCH (00:05)
[2023-05-31] MEDS: Potassium Chloride 20 MEQ Tab.ER PO ONE (00:22)
[2023-05-31 00:48] LABS: AMPHETAMINES SCREEN, URINE NEGATIVE (NEGATIVE); BARBITURATE SCREEN,URINE POSITIVE (NEGATIVE); BENZODIAZEPINES SCREEN,URINE POSITIVE (NEGATIVE); METHADONE SCREEN, URINE NEGATIVE (NEGATIVE); METHAMPHETAMINE SCREEN, URINE NEGATIVE (NEGATIVE); OXYCODONE SCREEN,URINE NEGATIVE (NEGATIVE); THC SCREEN,URINE POSITIVE (NEGATIVE)
[2023-05-31 00:49] LABS: BUPRENORPHINE SCREEN,URINE NEGATIVE (NEGATIVE)
[2023-05-31 00:54] LABS: BAND PERCENT MAN 3 % (0-6); LYMPHOCYTES PERCENT MAN 11 % (13-37); MONOCYTES PERCENT MAN 7 % (4-12); SEG NEUTROPHILS PERCENT MAN 79 % (46-82)
[2023-05-31] MEDS ORDERED: LORazepam 2 MG/ML SDV IVPUSH PRN (01:04)
[2023-05-31] MEDS: Ondansetron 4 MG/2 ML SDV IVPUSH SCH (03:08)
[2023-05-31] MEDS ORDERED: Ondansetron 4 MG/2 ML SDV IVPUSH PRN (06:13)
[2023-05-31] MEDS: Prochlorperazine 10 MG/2 ML SDV IVPUSH PRN (09:42)
[2023-05-31] MEDS: Diazepam 5 MG Tab PO ONE (09:43)
[2023-05-31 10:43] LABS: BLOOD UREA NITROGEN,BUN 34 mg/dL (7-18); BUN/CREATININE RATIO 24.3 (9-20); CARBON DIOXIDE,CO2 36 mmol/L (21-32); CHLORIDE,CL 99 mmol/L (100-110); CREATININE 1.4 mg/dL (0.70-1.30); EST CRCL DRUG DOSING (CG) 74.92 mL/min; ESTIMATED GFR 70 mL/min (>60); GLUCOSE RANDOM 94 mg/dL (80-116); POTASSIUM,K 3.7 mmol/L (3.5-5.3); SODIUM,NA 139 mmol/L (135-145)
[2023-05-31 10:49] LABS: A/G RATIO 1.2; ALANINE AMINOTRANSFERASE,ALT 29 U/L (12-36); ALBUMIN 3.6 g/dL (3.5-5.2); ALKALINE PHOSPHATASE 52 IU/L (56-112); ASPARTATE AMNIOTRANSFERASE,AST 29 IU/L (5-25); PROTEIN TOTAL,TP 6.6 g/dL (6.0-8.0)
[2023-05-31 13:48] VITALS: BP 104/65; PULSE 72
== END 2023-05-31 13:43 | disposition home or self-care (01) ==
LOC: FB.ED 22:21
DX: F10.239 Alcohol dependence with withdrawal, unspecified (principal); E87.6 Hypokalemia; E86.0 Dehydration; K70.9 Alcoholic liver disease, unspecified; F19.10 Other psychoactive substance abuse, uncomplicated; F17.210 Nicotine dependence, cigarettes, uncomplicated; K21.9 Gastro-esophageal reflux disease without esophagitis; Z86.16 Personal history of COVID-19; Z79.899 Other long term (current) drug therapy; Y90.0 Blood alcohol level of less than 20 mg/100 ml; Z88.2 Allergy status to sulfonamides
CPT/HCPCS: 36415; 71045; 80053; 80307; 82150; 82550; 83690; 83735; 83880; 84100; 84484; 85025; 85610; 93005; 93010; 96361; 96365; 96366; 96375; 96376; 99284; 99285; A9270; J0780; J2060; J2405; J3411; J3480; J3490; J7030

== ENCOUNTER 2023-06-18 06:35 | Emergency (ER) | payer BC ==
[2023-06-18] MEDS ORDERED: Sodium Chloride 0.9% 10 ML Syringe FLUSH PRN (06:50)
[2023-06-18 07:05] LABS: HEMATOCRIT 46.3 % (38.3-50.1); HEMOGLOBIN 16.5 g/dL (12.9-17.7); MEAN CORPUSCULAR HEMOGLOBIN 31.6 pg (27.0-33.3); MEAN CORPUSCULAR HGB CONC 35.7 g/dL (28.7-35.3); MEAN CORPUSCULAR VOLUME 88.8 fL (80.8-98.7); MEAN PLATELET VOLUME 7.3 fL (6.7-11.0); PLATELET COUNT,PLT 345 x10(3)uL (117-477); RED BLOOD CELL COUNT 5.22 x10(6)uL (3.90-5.90); WHITE BLOOD CELL COUNT,WBC 18.3 x10-3/uL (3.2-10.1)
[2023-06-18 07:09] VITALS: BP 145/100; PULSE 113
[2023-06-18 07:12] LABS: A/G RATIO 1.4; ALANINE AMINOTRANSFERASE,ALT 31 U/L (12-36); ALBUMIN 5.5 g/dL (3.5-5.2); ALKALINE PHOSPHATASE 60 IU/L (56-112); ASPARTATE AMNIOTRANSFERASE,AST 22 IU/L (5-25); BILIRUBIN TOTAL 1.6 mg/dL (0.1-1.3); BLOOD UREA NITROGEN,BUN 54 mg/dL (7-18); BUN/CREATININE RATIO 24.5 (9-20); CALCIUM 10.8 mg/dL (8.6-10.2); CARBON DIOXIDE,CO2 30 mmol/L (21-32); ESTIMATED GFR 41 mL/min (>60); GLUCOSE RANDOM 174 mg/dL (80-116); POTASSIUM,K 3.7 mmol/L (3.5-5.3); PROTEIN TOTAL,TP 9.4 g/dL (6.0-8.0); SODIUM,NA 133 mmol/L (135-145)
[2023-06-18 07:14] LABS: CHLORIDE,CL 83 mmol/L (100-110); CREATININE 2.2 mg/dL (0.70-1.30)
[2023-06-18 07:19] LABS: MAGNESIUM 2.5 mg/dL (1.8-2.5); PHOSPHORUS 4.6 mg/dL (2.6-4.6)
[2023-06-18] MEDS: Thiamine 200 MG/2 ML MDV IVPUSH ONE (07:27)
[2023-06-18] MEDS: LORazepam 2 MG/ML SDV IVPUSH ONE ×2 (07:27→07:33)
[2023-06-18] MEDS: Ondansetron 4 MG/2 ML SDV IVPUSH ONE (07:28)
[2023-06-18] MEDS: Prochlorperazine 10 MG/2 ML SDV IVPUSH ONE (07:33)
[2023-06-18 07:37] LABS: LYMPHOCYTES PERCENT MAN 11 % (13-37); MONOCYTES PERCENT MAN 4 % (4-12); SEG NEUTROPHILS PERCENT MAN 85 % (46-82)
[2023-06-18] MEDS: Sodium Chloride 0.9% 1,000 ML IV SCH ×2 (07:40→09:50)
[2023-06-18 10:18] LABS: BLOOD UREA NITROGEN,BUN 47 mg/dL (7-18); BUN/CREATININE RATIO 27.6 (9-20); CALCIUM 9.3 mg/dL (8.6-10.2); CARBON DIOXIDE,CO2 36 mmol/L (21-32); CHLORIDE,CL 92 mmol/L (100-110); CREATININE 1.7 mg/dL (0.70-1.30); ESTIMATED GFR 55 mL/min (>60); GLUCOSE RANDOM 118 mg/dL (80-116); POTASSIUM,K 3.4 mmol/L (3.5-5.3); SODIUM,NA 137 mmol/L (135-145)
[2023-06-18 10:24] LABS: A/G RATIO 1.3; ALANINE AMINOTRANSFERASE,ALT 25 U/L (12-36); ALBUMIN 4.4 g/dL (3.5-5.2); ALKALINE PHOSPHATASE 50 IU/L (56-112); ASPARTATE AMNIOTRANSFERASE,AST 21 IU/L (5-25); BILIRUBIN TOTAL 1.1 mg/dL (0.1-1.3); PROTEIN TOTAL,TP 7.8 g/dL (6.0-8.0)
[2023-06-18 10:27] LABS: LACTIC ACID 1.2 mmol/L (0.4-2.0)
[2023-06-18] MEDS: Potassium Chloride 20 MEQ Tab.ER PO ONE (11:13)
[2023-06-18] MEDS: Diazepam 5 MG Tab PO ONE (11:43)
== END 2023-06-18 12:00 | disposition home or self-care (01) ==
LOC: FB.ED 06:35
DX: F10.139 Alcohol abuse with withdrawal, unspecified (principal); E87.6 Hypokalemia; K21.9 Gastro-esophageal reflux disease without esophagitis; F17.210 Nicotine dependence, cigarettes, uncomplicated; Z86.16 Personal history of COVID-19; Z88.2 Allergy status to sulfonamides; Y90.0 Blood alcohol level of less than 20 mg/100 ml
CPT/HCPCS: 36415; 80053; 80307; 82150; 82550; 83605; 83690; 83735; 84100; 85025; 96361; 96374; 96375; 99284; 99284-25; A9270-GY; J0780; J2060; J2405; J3411; J7030

== ENCOUNTER 2023-10-04 01:22 | Emergency (ER) | payer BC ==
[2023-10-04] MEDS: Sodium Chloride 0.9% 1,000 ML IV ONE ×2 (02:24→03:15)
[2023-10-04] MEDS: Ondansetron 4 MG/2 ML SDV IVPUSH ONE (02:24)
[2023-10-04] MEDS: LORazepam 2 MG/ML SDV IVPUSH ONE (02:26)
[2023-10-04] MEDS: Thiamine 100 MG in Sodium Chloride 0.9% 50 ML IV ONE (02:27)
[2023-10-04 02:32] LABS: BLOOD UREA NITROGEN,BUN 27 mg/dL (7-18); CALCIUM 9.7 mg/dL (8.6-10.2); CARBON DIOXIDE,CO2 30 mmol/L (21-32); CHLORIDE,CL 93 mmol/L (100-110); CREATININE 1.8 mg/dL (0.70-1.30); ESTIMATED GFR 51 mL/min (>60); GLUCOSE RANDOM 134 mg/dL (80-116); POTASSIUM,K 3.3 mmol/L (3.5-5.3); SODIUM,NA 140 mmol/L (135-145)
[2023-10-04] MEDS: chlordiazePOXIDE 25 MG Cap PO ONE (02:33)
[2023-10-04 02:34] LABS: LIPASE 26 U/L (16-77)
[2023-10-04 02:38] LABS: A/G RATIO 1.6; ALANINE AMINOTRANSFERASE,ALT 27 U/L (12-36); ALBUMIN 5.1 g/dL (3.5-5.2); ALKALINE PHOSPHATASE 72 IU/L (56-112); ASPARTATE AMNIOTRANSFERASE,AST 24 IU/L (5-25); BILIRUBIN TOTAL 1.5 mg/dL (0.1-1.3); PROTEIN TOTAL,TP 8.4 g/dL (6.0-8.0)
[2023-10-04 02:50] LABS: C-REACTIVE PROTEIN < 0.50 mg/dL (<0.50); ETHANOL BLOOD MEDICAL < 0.03 % (<0.03)
[2023-10-04 03:06] LABS: HEMATOCRIT 49.2 % (38.3-50.1); HEMOGLOBIN 17.9 g/dL (12.9-17.7); MEAN CORPUSCULAR HEMOGLOBIN 31.7 pg (27.0-33.3); MEAN CORPUSCULAR HGB CONC 36.3 g/dL (28.7-35.3); MEAN CORPUSCULAR VOLUME 87.2 fL (80.8-98.7); MEAN PLATELET VOLUME 7.5 fL (6.7-11.0); PLATELET COUNT,PLT 431 x10(3)uL (117-477); RED BLOOD CELL COUNT 5.64 x10(6)uL (3.90-5.90); RED CELL DISTRIBUTION WIDTH 13.7 % (12.4-15.0); WHITE BLOOD CELL COUNT,WBC 13.2 x10-3/uL (3.2-10.1)
[2023-10-04] MEDS ORDERED: LORazepam 2 MG/ML SDV IVPUSH PRN (03:06)
[2023-10-04 03:07] LABS: BAND PERCENT MAN 6 % (0-6); LYMPHOCYTES PERCENT MAN 10 % (13-37); MONOCYTES PERCENT MAN 4 % (4-12); SEG NEUTROPHILS PERCENT MAN 80 % (46-82)
[2023-10-04] MEDS: Potassium Chloride 20 MEQ Tab.ER PO ONE (03:15)
[2023-10-04 03:41] LABS: AMPHETAMINES SCREEN, URINE NEGATIVE (NEGATIVE); BARBITURATE SCREEN,URINE NEGATIVE (NEGATIVE); BENZODIAZEPINES SCREEN,URINE POSITIVE (NEGATIVE); BUPRENORPHINE SCREEN,URINE NEGATIVE (NEGATIVE); METHADONE SCREEN, URINE NEGATIVE (NEGATIVE); METHAMPHETAMINE SCREEN, URINE NEGATIVE (NEGATIVE); OXYCODONE SCREEN,URINE NEGATIVE (NEGATIVE); THC SCREEN,URINE POSITIVE (NEGATIVE)
[2023-10-04 06:58] LABS: BASOPHILS PERCENT AUTO 0.1 % (0.3-3.8); HEMATOCRIT 40.7 % (38.3-50.1); HEMOGLOBIN 14.5 g/dL (12.9-17.7); LYMPHOCYTES ABSOLUTE AUTO 1.7 x10-3/uL (0.5-4.5); LYMPHOCYTES PERCENT AUTO 16.6 % (15.8-45.3); MEAN CORPUSCULAR HEMOGLOBIN 31.5 pg (27.0-33.3); MEAN CORPUSCULAR HGB CONC 35.6 g/dL (28.7-35.3); MEAN CORPUSCULAR VOLUME 88.5 fL (80.8-98.7); MONOCYTES ABSOLUTE AUTO 0.9 x10-3/uL (0.0-1.2); MONOCYTES PERCENT AUTO 9.1 % (5.5-15.2); NEUTROPHILS ABSOLUTE AUTO 7.6 x10-3/uL (1.7-6.9); NEUTROPHILS PERCENT AUTO 74.2 % (40.3-71.8); PLATELET COUNT,PLT 299 x10(3)uL (117-477); RED BLOOD CELL COUNT 4.59 x10(6)uL (3.90-5.90); RED CELL DISTRIBUTION WIDTH 13.6 % (12.4-15.0); WHITE BLOOD CELL COUNT,WBC 10.2 x10-3/uL (3.2-10.1)
[2023-10-04 07:09] LABS: A/G RATIO 1.4; ALANINE AMINOTRANSFERASE,ALT 19 U/L (12-36); ALBUMIN 3.6 g/dL (3.5-5.2); ALKALINE PHOSPHATASE 50 IU/L (56-112); ASPARTATE AMNIOTRANSFERASE,AST 18 IU/L (5-25); BLOOD UREA NITROGEN,BUN 25 mg/dL (7-18); BUN/CREATININE RATIO 17.9 (9-20); CALCIUM 8.3 mg/dL (8.6-10.2); CARBON DIOXIDE,CO2 33 mmol/L (21-32); CHLORIDE,CL 97 mmol/L (100-110); CREATININE 1.4 mg/dL (0.70-1.30); ESTIMATED GFR 69 mL/min (>60); GLUCOSE RANDOM 101 mg/dL (80-116); POTASSIUM,K 3.1 mmol/L (3.5-5.3); PROTEIN TOTAL,TP 6.2 g/dL (6.0-8.0); SODIUM,NA 136 mmol/L (135-145)
[2023-10-04 08:26] VITALS: BP 107/71; PULSE 83
== END 2023-10-04 08:29 | disposition home or self-care (01) ==
LOC: FB.ED 01:22
DX: F10.239 Alcohol dependence with withdrawal, unspecified (principal); E87.6 Hypokalemia; E86.0 Dehydration; F19.10 Other psychoactive substance abuse, uncomplicated; E87.20 Acidosis, unspecified; Z86.16 Personal history of COVID-19; Z79.899 Other long term (current) drug therapy; Z88.2 Allergy status to sulfonamides; Y90.0 Blood alcohol level of less than 20 mg/100 ml
CPT/HCPCS: 36415; 80053; 80307; 83605; 83690; 85025; 86140; 96361; 96365; 96366; 96375; 99284; A9270; J2060; J2405; J3411; J3490; J7030

== ENCOUNTER 2023-10-19 17:13 | Emergency (ER) | payer BC ==
[2023-10-19] MEDS ORDERED: Sodium Chloride 0.9% 10 ML Syringe FLUSH PRN (17:48)
[2023-10-19 17:55] LABS: HEMATOCRIT 46.7 % (38.3-50.1); HEMOGLOBIN 16.7 g/dL (12.9-17.7); MEAN CORPUSCULAR HEMOGLOBIN 31.9 pg (27.0-33.3); MEAN CORPUSCULAR HGB CONC 35.6 g/dL (28.7-35.3); MEAN CORPUSCULAR VOLUME 89.5 fL (80.8-98.7); MEAN PLATELET VOLUME 7.5 fL (6.7-11.0); PLATELET COUNT,PLT 299 x10(3)uL (117-477); RED BLOOD CELL COUNT 5.22 x10(6)uL (3.90-5.90); RED CELL DISTRIBUTION WIDTH 13.7 % (12.4-15.0); WHITE BLOOD CELL COUNT,WBC 13.9 x10-3/uL (3.2-10.1)
[2023-10-19 17:58] LABS: BLOOD UREA NITROGEN,BUN 20 mg/dL (7-18); BUN/CREATININE RATIO 15.4 (9-20); CALCIUM 9.9 mg/dL (8.6-10.2); CARBON DIOXIDE,CO2 31 mmol/L (21-32); CHLORIDE,CL 102 mmol/L (100-110); CREATININE 1.3 mg/dL (0.70-1.30); ESTIMATED GFR 76 mL/min (>60); GLUCOSE RANDOM 105 mg/dL (80-116); POTASSIUM,K 3.5 mmol/L (3.5-5.3); SODIUM,NA 143 mmol/L (135-145)
[2023-10-19] MEDS: Sodium Chloride 0.9% 1,000 ML IV ONE (18:02)
[2023-10-19 18:03] LABS: A/G RATIO 1.6; ALANINE AMINOTRANSFERASE,ALT 20 U/L (12-36); ALKALINE PHOSPHATASE 60 IU/L (56-112); ASPARTATE AMNIOTRANSFERASE,AST 21 IU/L (5-25); BILIRUBIN TOTAL 1.2 mg/dL (0.1-1.3); PROTEIN TOTAL,TP 8.2 g/dL (6.0-8.0)
[2023-10-19] MEDS: Ondansetron 4 MG/2 ML SDV IVPUSH ONE (18:04)
[2023-10-19] MEDS: Ketorolac 15 MG/ML SDV IVPUSH ONE (18:05)
[2023-10-19] MEDS: LORazepam 2 MG/ML SDV IVPUSH ONE (18:06)
[2023-10-19] MEDS: Thiamine 100 MG in Sodium Chloride 0.9% 50 ML IV ONE (18:08)
[2023-10-19] MEDS: chlordiazePOXIDE 25 MG Cap PO ONE (18:09)
[2023-10-19 18:12] LABS: BAND PERCENT MAN 2 % (0-6); LYMPHOCYTES PERCENT MAN 8 % (13-37); MONOCYTES PERCENT MAN 3 % (4-12); SEG NEUTROPHILS PERCENT MAN 87 % (46-82)
[2023-10-19 20:59] VITALS: BP 98/60; PULSE 68
== END 2023-10-19 20:56 | disposition home or self-care (01) ==
LOC: FB.ED 17:13
DX: F10.239 Alcohol dependence with withdrawal, unspecified (principal); Z86.16 Personal history of COVID-19; Z88.2 Allergy status to sulfonamides
CPT/HCPCS: 80053; 80307; 83605; 83690; 85025; 96365; 96366; 96375; 99284; A9270; J1885; J2060; J2405; J3411; J3490; J7030

== ENCOUNTER 2023-12-20 17:05 | Emergency (ER) | payer BC ==
[2023-12-20] MEDS ORDERED: Sodium Chloride 0.9% 10 ML Syringe FLUSH PRN (17:34)
[2023-12-20] MEDS: Sodium Chloride 0.9% 1,000 ML IV ONE (17:40)
[2023-12-20] MEDS: Ondansetron 4 MG/2 ML SDV IVPUSH ONE (17:47)
[2023-12-20 17:48] LABS: HEMATOCRIT 47.1 % (38.3-50.1); HEMOGLOBIN 16.5 g/dL (12.9-17.7); MEAN CORPUSCULAR HEMOGLOBIN 32.9 pg (27.0-33.3); MEAN CORPUSCULAR HGB CONC 35.1 g/dL (28.7-35.3); MEAN CORPUSCULAR VOLUME 93.8 fL (80.8-98.7); PLATELET COUNT,PLT 303 x10(3)uL (117-477); RED BLOOD CELL COUNT 5.02 x10(6)uL (3.90-5.90); RED CELL DISTRIBUTION WIDTH 13.6 % (12.4-15.0); WHITE BLOOD CELL COUNT,WBC 13.6 x10-3/uL (3.2-10.1)
[2023-12-20] MEDS: LORazepam 2 MG/ML SDV IVPUSH ONE (17:49)
[2023-12-20 17:50] LABS: BLOOD UREA NITROGEN,BUN 27 mg/dL (7-18); CALCIUM 9.5 mg/dL (8.6-10.2); CARBON DIOXIDE,CO2 34 mmol/L (21-32); CHLORIDE,CL 98 mmol/L (100-110); CREATININE 1.5 mg/dL (0.70-1.30); EST CRCL DRUG DOSING (CG) 66.99 mL/min; ESTIMATED GFR 64 mL/min (>60); GLUCOSE RANDOM 141 mg/dL (80-116); POTASSIUM,K 3.4 mmol/L (3.5-5.3); SODIUM,NA 143 mmol/L (135-145)
[2023-12-20 17:51] LABS: LIPASE 51 U/L (16-77)
[2023-12-20 17:56] LABS: A/G RATIO 1.5; ALANINE AMINOTRANSFERASE,ALT 24 U/L (12-36); ALBUMIN 4.6 g/dL (3.5-5.2); ALKALINE PHOSPHATASE 54 IU/L (56-112); ASPARTATE AMNIOTRANSFERASE,AST 22 IU/L (5-25); BILIRUBIN TOTAL 0.7 mg/dL (0.1-1.3); PROTEIN TOTAL,TP 7.7 g/dL (6.0-8.0)
[2023-12-20 17:57] LABS: ETHANOL BLOOD MEDICAL < 0.03 % (<0.03)
[2023-12-20 17:59] LABS: LYMPHOCYTES PERCENT MAN 6 % (13-37); MONOCYTES PERCENT MAN 4 % (4-12); SEG NEUTROPHILS PERCENT MAN 90 % (46-82)
[2023-12-20 18:00] VITALS: BP 113/65; PULSE 82
[2023-12-20 18:05] LABS: LACTIC ACID 3.5 mmol/L (0.4-2.0)
[2023-12-20] MEDS: Sodium Chloride 0.9% 1,000 ML IV SCH (18:38)
== END 2023-12-20 21:14 | disposition home or self-care (01) ==
LOC: FB.ED 17:05
DX: F10.239 Alcohol dependence with withdrawal, unspecified (principal); E86.0 Dehydration; R11.2 Nausea with vomiting, unspecified; Z88.2 Allergy status to sulfonamides; Z86.16 Personal history of COVID-19; Y90.0 Blood alcohol level of less than 20 mg/100 ml
CPT/HCPCS: 36415; 80053; 80307; 83605; 83690; 85025; 96361; 96374; 96375; 99284; J2060; J2405; J7030

== ENCOUNTER 2023-12-28 03:31 | Emergency (ER) | payer BC ==
[2023-12-28] MEDS ORDERED: Sodium Chloride 0.9% 10 ML Syringe FLUSH PRN (03:57)
[2023-12-28] MEDS: Ondansetron 4 MG/2 ML SDV IVPUSH ONE (04:05)
[2023-12-28] MEDS: LORazepam 2 MG/ML SDV IVPUSH ONE (04:06)
[2023-12-28] MEDS: Pantoprazole 40 MG Vial IVPUSH ONE (04:07)
[2023-12-28] MEDS: Sodium Chloride 0.9% 1,000 ML IV SCH ×2 (04:09→04:55)
[2023-12-28 04:14] LABS: HEMATOCRIT 47.7 % (38.3-50.1); HEMOGLOBIN 16.6 g/dL (12.9-17.7); MEAN CORPUSCULAR HEMOGLOBIN 32.2 pg (27.0-33.3); MEAN CORPUSCULAR HGB CONC 34.7 g/dL (28.7-35.3); MEAN CORPUSCULAR VOLUME 92.6 fL (80.8-98.7); MEAN PLATELET VOLUME 7.1 fL (6.7-11.0); PLATELET COUNT,PLT 301 x10(3)uL (117-477); RED BLOOD CELL COUNT 5.15 x10(6)uL (3.90-5.90); RED CELL DISTRIBUTION WIDTH 13.2 % (12.4-15.0); WHITE BLOOD CELL COUNT,WBC 13.6 x10-3/uL (3.2-10.1)
[2023-12-28 04:17] LABS: ETHANOL BLOOD MEDICAL 0.04 % (<0.03)
[2023-12-28 04:18] LABS: BLOOD UREA NITROGEN,BUN 15 mg/dL (7-18); BUN/CREATININE RATIO 12.5 (9-20); CARBON DIOXIDE,CO2 34 mmol/L (21-32); CHLORIDE,CL 99 mmol/L (100-110); CREATININE 1.2 mg/dL (0.70-1.30); ESTIMATED GFR 83 mL/min (>60); GLUCOSE RANDOM 102 mg/dL (80-116); SODIUM,NA 143 mmol/L (135-145)
[2023-12-28 04:24] LABS: A/G RATIO 1.3; ALANINE AMINOTRANSFERASE,ALT 22 U/L (12-36); ALBUMIN 4.2 g/dL (3.5-5.2); ALKALINE PHOSPHATASE 56 IU/L (56-112); ASPARTATE AMNIOTRANSFERASE,AST 23 IU/L (5-25); BILIRUBIN TOTAL 0.9 mg/dL (0.1-1.3); PROTEIN TOTAL,TP 7.4 g/dL (6.0-8.0)
[2023-12-28] MEDS: Potassium Chloride 20 MEQ in Premix Bag 1 BAG IV ONE (05:03)
[2023-12-28 05:13] LABS: AMPHETAMINES SCREEN, URINE NEGATIVE (NEGATIVE); BARBITURATE SCREEN,URINE NEGATIVE (NEGATIVE); BENZODIAZEPINES SCREEN,URINE POSITIVE (NEGATIVE); BUPRENORPHINE SCREEN,URINE NEGATIVE (NEGATIVE); METHADONE SCREEN, URINE NEGATIVE (NEGATIVE); METHAMPHETAMINE SCREEN, URINE NEGATIVE (NEGATIVE); OXYCODONE SCREEN,URINE NEGATIVE (NEGATIVE); THC SCREEN,URINE POSITIVE (NEGATIVE)
[2023-12-28 05:20] LABS: BAND PERCENT MAN 2 % (0-6); LYMPHOCYTES PERCENT MAN 7 % (13-37); MONOCYTES PERCENT MAN 2 % (4-12); SEG NEUTROPHILS PERCENT MAN 89 % (46-82)
[2023-12-28 06:11] VITALS: BP 127/48; PULSE 84
== END 2023-12-28 07:25 | disposition home or self-care (01) ==
LOC: FB.ED 03:31
DX: R11.2 Nausea with vomiting, unspecified (principal); F10.10 Alcohol abuse, uncomplicated; F14.10 Cocaine abuse, uncomplicated; Z86.16 Personal history of COVID-19; Z88.2 Allergy status to sulfonamides
CPT/HCPCS: 36415; 80053; 80307; 83605; 83690; 84484; 85025; 96361; 96365; 96366; 96375; 99284; J2060; J2405; J2470; J3480; J7030

== ENCOUNTER 2023-12-31 06:38 | Emergency (ER) | payer BC ==
[2023-12-31] MEDS ORDERED: Sodium Chloride 0.9% 10 ML Syringe FLUSH PRN (07:12)
[2023-12-31 07:34] LABS: BASOPHILS PERCENT AUTO 0.5 % (0.3-3.8); EOSINOPHILS ABSOLUTE AUTO 0.1 x10-3/uL (0.0-0.6); EOSINOPHILS PERCENT AUTO 1.3 % (0.1-6.8); HEMATOCRIT 43.8 % (38.3-50.1); HEMOGLOBIN 15.6 g/dL (12.9-17.7); LYMPHOCYTES ABSOLUTE AUTO 1.3 x10-3/uL (0.5-4.5); LYMPHOCYTES PERCENT AUTO 33.4 % (15.8-45.3); MEAN CORPUSCULAR HEMOGLOBIN 32.7 pg (27.0-33.3); MEAN CORPUSCULAR HGB CONC 35.6 g/dL (28.7-35.3); MEAN CORPUSCULAR VOLUME 91.9 fL (80.8-98.7); MEAN PLATELET VOLUME 6.4 fL (6.7-11.0); MONOCYTES ABSOLUTE AUTO 0.2 x10-3/uL (0.0-1.2); MONOCYTES PERCENT AUTO 5.2 % (5.5-15.2); NEUTROPHILS ABSOLUTE AUTO 2.4 x10-3/uL (1.7-6.9); NEUTROPHILS PERCENT AUTO 59.6 % (40.3-71.8); PLATELET COUNT,PLT 295 x10(3)uL (117-477); RED BLOOD CELL COUNT 4.76 x10(6)uL (3.90-5.90); RED CELL DISTRIBUTION WIDTH 12.9 % (12.4-15.0)
[2023-12-31 07:41] LABS: BLOOD UREA NITROGEN,BUN 10 mg/dL (7-18); CALCIUM 8.8 mg/dL (8.6-10.2); CARBON DIOXIDE,CO2 33 mmol/L (21-32); CHLORIDE,CL 104 mmol/L (100-110); ESTIMATED GFR 104 mL/min (>60); GLUCOSE RANDOM 98 mg/dL (80-116); POTASSIUM,K 3.5 mmol/L (3.5-5.3); SODIUM,NA 145 mmol/L (135-145)
[2023-12-31 07:47] LABS: A/G RATIO 1.3; ALANINE AMINOTRANSFERASE,ALT 25 U/L (12-36); ALBUMIN 3.9 g/dL (3.5-5.2); ALKALINE PHOSPHATASE 58 IU/L (56-112); ASPARTATE AMNIOTRANSFERASE,AST 21 IU/L (5-25); BILIRUBIN TOTAL 0.8 mg/dL (0.1-1.3); MAGNESIUM 1.9 mg/dL (1.8-2.5); PROTEIN TOTAL,TP 6.9 g/dL (6.0-8.0)
[2023-12-31 08:11] LABS: BILIRUBIN,URINE NEGATIVE (NEGATIVE); GLUCOSE,URINE NORMAL (NORMAL); KETONES,URINE NEGATIVE (NEGATIVE); LEUKOCYTE ESTERASE,URINE NEGATIVE (NEGATIVE); NITRITE,URINE NEGATIVE (NEGATIVE); OCCULT BLOOD,URINE NEGATIVE (NEGATIVE); PROTEIN,URINE NEGATIVE (NEGATIVE); UROBILINOGEN,URINE NORMAL (NEGATIVE)
[2023-12-31 08:13] LABS: AMORPHOUS SEDIMENT,URINE MANY; APPEARANCE,URINE CLOUDY (CLEAR); BACTERIA,URINE FEW (NS); COLOR,URINE YELLOW (YELLOW); RBC,URINE 0-5 (0-5); SQUAMOUS EPITHELIAL CELLS,UR NOT SEEN (NS,R,O); WBC,URINE 0-5 (0-5)
[2023-12-31] MEDS: Sodium Chloride 0.9% 1,000 ML IV ONE ×2 (08:19→09:26)
[2023-12-31] MEDS: Ondansetron 4 MG/2 ML SDV IVPUSH ONE (08:19)
[2023-12-31 08:22] LABS: AMPHETAMINES SCREEN, URINE NEGATIVE (NEGATIVE); BARBITURATE SCREEN,URINE NEGATIVE (NEGATIVE); BENZODIAZEPINES SCREEN,URINE NEGATIVE (NEGATIVE); BUPRENORPHINE SCREEN,URINE NEGATIVE (NEGATIVE); METHADONE SCREEN, URINE NEGATIVE (NEGATIVE); METHAMPHETAMINE SCREEN, URINE NEGATIVE (NEGATIVE); OXYCODONE SCREEN,URINE NEGATIVE (NEGATIVE); THC SCREEN,URINE POSITIVE (NEGATIVE)
[2023-12-31] MEDS: Promethazine 12.5 MG in Sodium Chloride 0.9% 50 ML IV ONE (08:22)
[2023-12-31] MEDS: hydrOXYzine HCl 50 MG/ML SDV IM ONE (09:22)
[2023-12-31 11:37] VITALS: BP 122/80; PULSE 56
== END 2023-12-31 11:35 | disposition home or self-care (01) ==
LOC: FB.ED 06:38
DX: F10.130 Alcohol abuse with withdrawal, uncomplicated (principal); E86.0 Dehydration; R11.2 Nausea with vomiting, unspecified; F41.9 Anxiety disorder, unspecified; Z86.16 Personal history of COVID-19; Z79.899 Other long term (current) drug therapy; Z88.2 Allergy status to sulfonamides
CPT/HCPCS: 36415; 80053; 80307; 81001; 83605; 83690; 83735; 85025; 96361; 96365; 96372; 96375; 99284; 99284-25; J2405; J2550; J3410; J3490; J7030

== ENCOUNTER 2024-01-24 01:57 | Emergency (ER) | payer BC ==
[2024-01-24] MEDS: hydrOXYzine HCl 50 MG/ML SDV IM ONE (02:23)
[2024-01-24 02:36] LABS: BLOOD UREA NITROGEN,BUN 16 mg/dL (7-18); BUN/CREATININE RATIO 14.5 (9-20); CARBON DIOXIDE,CO2 29 mmol/L (21-32); CHLORIDE,CL 100 mmol/L (100-110); CREATININE 1.1 mg/dL (0.70-1.30); ESTIMATED GFR 93 mL/min (>60); GLUCOSE RANDOM 124 mg/dL (80-116); SODIUM,NA 138 mmol/L (135-145)
[2024-01-24 02:42] LABS: A/G RATIO 1.3; ALANINE AMINOTRANSFERASE,ALT 24 U/L (12-36); ALBUMIN 3.8 g/dL (3.5-5.2); ALKALINE PHOSPHATASE 59 IU/L (56-112); ASPARTATE AMNIOTRANSFERASE,AST 22 IU/L (5-25); BILIRUBIN TOTAL 0.7 mg/dL (0.1-1.3); PROTEIN TOTAL,TP 6.7 g/dL (6.0-8.0)
[2024-01-24 02:52] LABS: BASOPHILS PERCENT AUTO 0.3 % (0.3-3.8); EOSINOPHILS ABSOLUTE AUTO 0.1 x10-3/uL (0.0-0.6); EOSINOPHILS PERCENT AUTO 1.5 % (0.1-6.8); HEMATOCRIT 42.7 % (38.3-50.1); HEMOGLOBIN 15.2 g/dL (12.9-17.7); LYMPHOCYTES ABSOLUTE AUTO 1.6 x10-3/uL (0.5-4.5); LYMPHOCYTES PERCENT AUTO 30.4 % (15.8-45.3); MEAN CORPUSCULAR HEMOGLOBIN 32.6 pg (27.0-33.3); MEAN CORPUSCULAR HGB CONC 35.6 g/dL (28.7-35.3); MEAN CORPUSCULAR VOLUME 91.8 fL (80.8-98.7); MEAN PLATELET VOLUME 6.8 fL (6.7-11.0); MONOCYTES ABSOLUTE AUTO 0.4 x10-3/uL (0.0-1.2); MONOCYTES PERCENT AUTO 7.4 % (5.5-15.2); NEUTROPHILS ABSOLUTE AUTO 3.3 x10-3/uL (1.7-6.9); NEUTROPHILS PERCENT AUTO 60.4 % (40.3-71.8); PLATELET COUNT,PLT 252 x10(3)uL (117-477); RED BLOOD CELL COUNT 4.65 x10(6)uL (3.90-5.90); RED CELL DISTRIBUTION WIDTH 13.4 % (12.4-15.0); WHITE BLOOD CELL COUNT,WBC 5.4 x10-3/uL (3.2-10.1)
[2024-01-24] MEDS: Potassium Chloride 20 MEQ Tab.ER PO ONE (03:30)
[2024-01-24 03:32] VITALS: BP 133/76; PULSE 76
== END 2024-01-24 03:40 | disposition home or self-care (01) ==
LOC: FB.ED 01:57
DX: F10.139 Alcohol abuse with withdrawal, unspecified (principal); E87.6 Hypokalemia; Z88.2 Allergy status to sulfonamides; Z79.899 Other long term (current) drug therapy; Z86.16 Personal history of COVID-19
CPT/HCPCS: 36415; 80053; 80307; 85025; 96372; 99284; A9270-GY; J3410

== ENCOUNTER 2024-02-01 07:27 | Emergency (ER) | payer BC ==
[2024-02-01] MEDS: Lactated Ringers 1,000 ML IV SCH (08:05)
[2024-02-01] MEDS: Thiamine 200 MG/2 ML MDV IVPUSH ONE (08:06)
[2024-02-01] MEDS: LORazepam 2 MG/ML SDV IVPUSH ONE (08:07)
[2024-02-01] MEDS: Sodium Chloride 0.9% 10 ML Syringe FLUSH PRN (08:08)
[2024-02-01] MEDS: Prochlorperazine 10 MG in Sodium Chloride 0.9% 50 ML IV ONE (08:12)
[2024-02-01 08:13] LABS: HEMOGLOBIN 16.9 g/dL (12.9-17.7); MEAN CORPUSCULAR HEMOGLOBIN 31.9 pg (27.0-33.3); MEAN CORPUSCULAR HGB CONC 35.3 g/dL (28.7-35.3); MEAN CORPUSCULAR VOLUME 90.5 fL (80.8-98.7); MEAN PLATELET VOLUME 6.8 fL (6.7-11.0); PLATELET COUNT,PLT 297 x10(3)uL (117-477); RED CELL DISTRIBUTION WIDTH 13.1 % (12.4-15.0); WHITE BLOOD CELL COUNT,WBC 14.9 x10-3/uL (3.2-10.1)
[2024-02-01 08:16] LABS: BLOOD UREA NITROGEN,BUN 12 mg/dL (7-18); CALCIUM 9.7 mg/dL (8.6-10.2); CARBON DIOXIDE,CO2 34 mmol/L (21-32); CHLORIDE,CL 93 mmol/L (100-110); CREATININE 1.2 mg/dL (0.70-1.30); EST CRCL DRUG DOSING (CG) 75.07 mL/min; ESTIMATED GFR 83 mL/min (>60); GLUCOSE RANDOM 125 mg/dL (80-116); POTASSIUM,K 4.1 mmol/L (3.5-5.3); SODIUM,NA 139 mmol/L (135-145)
[2024-02-01 08:22] LABS: A/G RATIO 1.4; ALANINE AMINOTRANSFERASE,ALT 31 U/L (12-36); ALBUMIN 4.6 g/dL (3.5-5.2); ALKALINE PHOSPHATASE 82 IU/L (56-112); ASPARTATE AMNIOTRANSFERASE,AST 30 IU/L (5-25); BILIRUBIN TOTAL 1.8 mg/dL (0.1-1.3); MAGNESIUM 1.5 mg/dL (1.8-2.5); PHOSPHORUS 2.6 mg/dL (2.6-4.6); PROTEIN TOTAL,TP 7.9 g/dL (6.0-8.0)
[2024-02-01 08:36] LABS: LYMPHOCYTES PERCENT MAN 8 % (13-37); MONOCYTES PERCENT MAN 3 % (4-12); SEG NEUTROPHILS PERCENT MAN 89 % (46-82)
[2024-02-01] MEDS: Magnesium Sulfate/Water Premix 2 GM in Premix Bag 1 BAG IV ONE (09:22)
[2024-02-01 11:36] VITALS: BP 128/82; PULSE 111
[2024-02-01 11:48] LABS: AMPHETAMINES SCREEN, URINE NEGATIVE (NEGATIVE); BARBITURATE SCREEN,URINE NEGATIVE (NEGATIVE); BENZODIAZEPINES SCREEN,URINE POSITIVE (NEGATIVE); METHADONE SCREEN, URINE NEGATIVE (NEGATIVE); METHAMPHETAMINE SCREEN, URINE NEGATIVE (NEGATIVE); OXYCODONE SCREEN,URINE NEGATIVE (NEGATIVE); THC SCREEN,URINE POSITIVE (NEGATIVE)
[2024-02-01 11:49] LABS: BUPRENORPHINE SCREEN,URINE NEGATIVE (NEGATIVE)
== END 2024-02-01 11:30 | disposition home or self-care (01) ==
LOC: FB.ED 07:27
DX: F10.20 Alcohol dependence, uncomplicated (principal); F41.8 Other specified anxiety disorders; Z86.16 Personal history of COVID-19; Z88.2 Allergy status to sulfonamides; Z79.899 Other long term (current) drug therapy; Y90.0 Blood alcohol level of less than 20 mg/100 ml
CPT/HCPCS: 80053; 80307; 83690; 83735; 84100; 85025; 96361; 96365; 96366; 96367; 96375; 99284; J0780; J2060; J3411; J3475; J3490; J7120

== ENCOUNTER 2024-02-29 10:09 | Emergency (ER) | payer BC ==
[2024-02-29] MEDS: Ondansetron 4 MG/2 ML SDV IVPUSH ONE ×2 (10:44→14:30)
[2024-02-29] MEDS: Sodium Chloride 0.9% 1,000 ML IV ONE (10:46)
[2024-02-29] MEDS: chlordiazePOXIDE 25 MG Cap PO ONE ×2 (10:48→17:10)
[2024-02-29 10:59] LABS: BASOPHILS PERCENT AUTO 0.3 % (0.3-3.8); BLOOD UREA NITROGEN,BUN 16 mg/dL (7-18); BUN/CREATININE RATIO 14.5 (9-20); CALCIUM 9.2 mg/dL (8.6-10.2); CARBON DIOXIDE,CO2 30 mmol/L (21-32); CHLORIDE,CL 102 mmol/L (100-110); CREATININE 1.1 mg/dL (0.70-1.30); EOSINOPHILS PERCENT AUTO 0.4 % (0.1-6.8); ESTIMATED GFR 93 mL/min (>60); GLUCOSE RANDOM 93 mg/dL (80-116); LYMPHOCYTES ABSOLUTE AUTO 1.1 x10-3/uL (0.5-4.5); LYMPHOCYTES PERCENT AUTO 17.8 % (15.8-45.3); MEAN CORPUSCULAR HEMOGLOBIN 33.6 pg (27.0-33.3); MEAN CORPUSCULAR HGB CONC 36.3 g/dL (28.7-35.3); MEAN CORPUSCULAR VOLUME 92.5 fL (80.8-98.7); MEAN PLATELET VOLUME 6.4 fL (6.7-11.0); MONOCYTES ABSOLUTE AUTO 0.3 x10-3/uL (0.0-1.2); MONOCYTES PERCENT AUTO 4.8 % (5.5-15.2); NEUTROPHILS ABSOLUTE AUTO 4.7 x10-3/uL (1.7-6.9); NEUTROPHILS PERCENT AUTO 76.7 % (40.3-71.8); PLATELET COUNT,PLT 341 x10(3)uL (117-477); POTASSIUM,K 3.2 mmol/L (3.5-5.3); RED BLOOD CELL COUNT 4.75 x10(6)uL (3.90-5.90); RED CELL DISTRIBUTION WIDTH 14.1 % (12.4-15.0); SODIUM,NA 144 mmol/L (135-145); WHITE BLOOD CELL COUNT,WBC 6.1 x10-3/uL (3.2-10.1)
[2024-02-29 11:04] LABS: A/G RATIO 1.5; ALANINE AMINOTRANSFERASE,ALT 22 U/L (12-36); ALBUMIN 4.1 g/dL (3.5-5.2); ALKALINE PHOSPHATASE 77 IU/L (56-112); ASPARTATE AMNIOTRANSFERASE,AST 25 IU/L (5-25); BILIRUBIN TOTAL 1.1 mg/dL (0.1-1.3); PROTEIN TOTAL,TP 6.9 g/dL (6.0-8.0)
[2024-02-29] MEDS ORDERED: Folic Acid/Vit B Complix And C 1 Tablet PO ONE (11:06)
[2024-02-29] MEDS: Folic Acid 0.4 MG Tab PO ONE (11:41)
[2024-02-29] MEDS: Potassium Chloride 20 MEQ in Premix Bag 1 BAG IV ONE (11:42)
[2024-02-29] MEDS: Multivitamin Tab PO ONE (11:42)
[2024-02-29 16:21] LABS: AMPHETAMINES SCREEN, URINE NEGATIVE (NEGATIVE); BARBITURATE SCREEN,URINE NEGATIVE (NEGATIVE); BENZODIAZEPINES SCREEN,URINE NEGATIVE (NEGATIVE); METHADONE SCREEN, URINE NEGATIVE (NEGATIVE); METHAMPHETAMINE SCREEN, URINE NEGATIVE (NEGATIVE); OXYCODONE SCREEN,URINE NEGATIVE (NEGATIVE); THC SCREEN,URINE POSITIVE (NEGATIVE)
[2024-02-29 16:22] LABS: BUPRENORPHINE SCREEN,URINE NEGATIVE (NEGATIVE)
[2024-02-29 17:46] VITALS: BP 125/80; PULSE 82
== END 2024-02-29 18:00 ==
LOC: FB.ED 10:09
DX: F10.939 Alcohol use, unspecified with withdrawal, unspecified (principal); E87.6 Hypokalemia; Z88.2 Allergy status to sulfonamides; Z86.16 Personal history of COVID-19
CPT/HCPCS: 36415; 80053; 80307; 83690; 84132; 84443; 85025; 87426; 96361; 96365; 96366; 96375; 96376; 99285; A9270; J2405; J3480; J7030

== ENCOUNTER 2024-03-29 10:53 | Emergency (ER) | payer BC ==
[2024-03-29] MEDS ORDERED: Sodium Chloride 0.9% 10 ML Syringe FLUSH PRN (11:07)
[2024-03-29] MEDS: LORazepam 2 MG/ML SDV IVPUSH ONE (11:16)
[2024-03-29] MEDS: Ondansetron 4 MG/2 ML SDV IVPUSH ONE (11:18)
[2024-03-29 11:27] LABS: HEMATOCRIT 52.6 % (38.3-50.1); HEMOGLOBIN 18.9 g/dL (12.9-17.7); MEAN CORPUSCULAR HGB CONC 35.9 g/dL (28.7-35.3); MEAN PLATELET VOLUME 6.9 fL (6.7-11.0); PLATELET COUNT,PLT 424 x10(3)uL (117-477); RED BLOOD CELL COUNT 5.72 x10(6)uL (3.90-5.90); RED CELL DISTRIBUTION WIDTH 13.5 % (12.4-15.0); WHITE BLOOD CELL COUNT,WBC 24.3 x10-3/uL (3.2-10.1)
[2024-03-29 11:29] LABS: BLOOD UREA NITROGEN,BUN 22 mg/dL (7-18); BUN/CREATININE RATIO 14.7 (9-20); CALCIUM 10.2 mg/dL (8.6-10.2); CARBON DIOXIDE,CO2 33 mmol/L (21-32); CHLORIDE,CL 92 mmol/L (100-110); CREATININE 1.5 mg/dL (0.70-1.30); EST CRCL DRUG DOSING (CG) 60.06 mL/min; ESTIMATED GFR 64 mL/min (>60); GLUCOSE RANDOM 132 mg/dL (80-116); POTASSIUM,K 3.6 mmol/L (3.5-5.3); SODIUM,NA 142 mmol/L (135-145)
[2024-03-29 11:44] LABS: MONOCYTES PERCENT MAN 9 % (4-12); SEG NEUTROPHILS PERCENT MAN 91 % (46-82)
[2024-03-29 12:33] VITALS: BP 135/91; PULSE 100
== END 2024-03-29 12:20 | disposition home or self-care (01) ==
LOC: FB.ED 10:53
DX: F10.939 Alcohol use, unspecified with withdrawal, unspecified (principal); Z88.2 Allergy status to sulfonamides; Z79.899 Other long term (current) drug therapy; Y90.0 Blood alcohol level of less than 20 mg/100 ml
CPT/HCPCS: 36415; 80048; 80307; 85025; 96374; 96375; 99284-25; J2060; J2405

== ENCOUNTER 2024-05-12 13:52 | Emergency (ER) | payer BC ==
[2024-05-12] MEDS ORDERED: LORazepam 0.5 MG Tab PO ONE (13:53)
[2024-05-12] MEDS: Sodium Chloride 0.9% 1,000 ML IV ONE ×2 (14:27→15:35)
[2024-05-12] MEDS: Ondansetron 4 MG/2 ML SDV IVPUSH ONE (14:27)
[2024-05-12] MEDS: LORazepam 2 MG/ML SDV IVPUSH ONE (14:28)
[2024-05-12 14:33] LABS: BASOPHILS PERCENT AUTO 0.3 % (0.3-3.8); EOSINOPHILS PERCENT AUTO 0.1 % (0.1-6.8); HEMATOCRIT 47.3 % (38.3-50.1); HEMOGLOBIN 17.2 g/dL (12.9-17.7); LYMPHOCYTES ABSOLUTE AUTO 0.9 x10-3/uL (0.5-4.5); LYMPHOCYTES PERCENT AUTO 11.9 % (15.8-45.3); MEAN CORPUSCULAR HEMOGLOBIN 33.3 pg (27.0-33.3); MEAN CORPUSCULAR HGB CONC 36.3 g/dL (28.7-35.3); MEAN CORPUSCULAR VOLUME 91.7 fL (80.8-98.7); MEAN PLATELET VOLUME 6.7 fL (6.7-11.0); MONOCYTES ABSOLUTE AUTO 0.8 x10-3/uL (0.0-1.2); MONOCYTES PERCENT AUTO 9.8 % (5.5-15.2); NEUTROPHILS ABSOLUTE AUTO 6.1 x10-3/uL (1.7-6.9); NEUTROPHILS PERCENT AUTO 77.9 % (40.3-71.8); PLATELET COUNT,PLT 356 x10(3)uL (117-477); RED BLOOD CELL COUNT 5.16 x10(6)uL (3.90-5.90); RED CELL DISTRIBUTION WIDTH 13.4 % (12.4-15.0); WHITE BLOOD CELL COUNT,WBC 7.8 x10-3/uL (3.2-10.1)
[2024-05-12 14:49] LABS: A/G RATIO 1.3; ALANINE AMINOTRANSFERASE,ALT 60 U/L (12-36); ALBUMIN 4.6 g/dL (3.5-5.2); ALKALINE PHOSPHATASE 87 IU/L (56-112); ASPARTATE AMNIOTRANSFERASE,AST 35 IU/L (5-25); BILIRUBIN TOTAL 2.5 mg/dL (0.1-1.3); BLOOD UREA NITROGEN,BUN 16 mg/dL (7-18); BUN/CREATININE RATIO 10.7 (9-20); CARBON DIOXIDE,CO2 33 mmol/L (21-32); CHLORIDE,CL 92 mmol/L (100-110); CREATININE 1.5 mg/dL (0.70-1.30); ESTIMATED GFR 64 mL/min (>60); GLUCOSE RANDOM 123 mg/dL (80-116); MAGNESIUM 1.6 mg/dL (1.8-2.5); PROTEIN TOTAL,TP 8.2 g/dL (6.0-8.0); SODIUM,NA 138 mmol/L (135-145)
[2024-05-12 14:53] LABS: POTASSIUM,K 2.7 mmol/L (3.5-5.3)
[2024-05-12] MEDS ORDERED: Magnesium Sulf 1 GM/2 mL SDV 2 GM in Sodium Chloride 0.9% 50 ML IV ONE (15:09)
[2024-05-12] MEDS: Thiamine 200 MG/2 ML MDV IVPUSH ONE (15:30)
[2024-05-12] MEDS: Potassium Chloride 20 MEQ Tab.ER PO ONE (15:30)
[2024-05-12] MEDS: Potassium Chloride 20 MEQ in Premix Bag 1 BAG IV ONE (15:31)
[2024-05-12] MEDS: Magnesium Sulf/Wat 2 GM/50 mL 2 GM in Premix Bag 1 BAG IV ONE (15:32)
[2024-05-12 18:01] VITALS: BP 128/95; PULSE 81
== END 2024-05-12 19:16 | disposition home or self-care (01) ==
LOC: FB.ED 13:52
DX: F10.131 Alcohol abuse with withdrawal delirium (principal); Z88.2 Allergy status to sulfonamides; Z79.899 Other long term (current) drug therapy; Y90.9 Presence of alcohol in blood, level not specified
CPT/HCPCS: 36415; 80053; 80307; 83735; 84132; 85025; 96361; 96365; 96366; 96368; 96375; 99284; A9270; J2060; J2405; J3411; J3475; J3480

== ENCOUNTER 2024-06-18 08:18 | Emergency (ER) | payer BC ==
[2024-06-18] MEDS ORDERED: Sodium Chloride 0.9% 10 ML Syringe FLUSH PRN (08:38)
[2024-06-18] MEDS: Sodium Chloride 0.9% 1,000 ML IV SCH (08:49)
[2024-06-18] MEDS: LORazepam 2 MG/ML SDV IVPUSH PRN ×2 (08:50→09:41)
[2024-06-18] MEDS: Ondansetron 4 MG/2 ML SDV IVPUSH ONE (08:50)
[2024-06-18 08:52] LABS: BLOOD UREA NITROGEN,BUN 13 mg/dL (7-18); BUN/CREATININE RATIO 10.8 (9-20); CALCIUM 9.6 mg/dL (8.6-10.2); CARBON DIOXIDE,CO2 35 mmol/L (21-32); CHLORIDE,CL 95 mmol/L (100-110); CREATININE 1.2 mg/dL (0.70-1.30); EST CRCL DRUG DOSING (CG) 80.85 mL/min; ESTIMATED GFR 83 mL/min (>60); GLUCOSE RANDOM 94 mg/dL (80-116); POTASSIUM,K 3.2 mmol/L (3.5-5.3); SODIUM,NA 141 mmol/L (135-145)
[2024-06-18 08:54] LABS: BASOPHILS PERCENT AUTO 0.3 % (0.3-3.8); EOSINOPHILS PERCENT AUTO 0.5 % (0.1-6.8); HEMATOCRIT 49.3 % (38.3-50.1); HEMOGLOBIN 17.9 g/dL (12.9-17.7); LYMPHOCYTES ABSOLUTE AUTO 1.8 x10-3/uL (0.5-4.5); MEAN CORPUSCULAR HEMOGLOBIN 32.8 pg (27.0-33.3); MEAN CORPUSCULAR HGB CONC 36.4 g/dL (28.7-35.3); MEAN CORPUSCULAR VOLUME 90.2 fL (80.8-98.7); MEAN PLATELET VOLUME 6.7 fL (6.7-11.0); MONOCYTES ABSOLUTE AUTO 0.4 x10-3/uL (0.0-1.2); MONOCYTES PERCENT AUTO 4.7 % (5.5-15.2); NEUTROPHILS ABSOLUTE AUTO 5.5 x10-3/uL (1.7-6.9); NEUTROPHILS PERCENT AUTO 71.5 % (40.3-71.8); PLATELET COUNT,PLT 328 x10(3)uL (117-477); RED BLOOD CELL COUNT 5.47 x10(6)uL (3.90-5.90); RED CELL DISTRIBUTION WIDTH 12.9 % (12.4-15.0); WHITE BLOOD CELL COUNT,WBC 7.7 x10-3/uL (3.2-10.1)
[2024-06-18 08:58] LABS: A/G RATIO 1.4; ALANINE AMINOTRANSFERASE,ALT 49 U/L (12-36); ALBUMIN 4.9 g/dL (3.5-5.2); ALKALINE PHOSPHATASE 70 IU/L (56-112); ASPARTATE AMNIOTRANSFERASE,AST 48 IU/L (5-25); BILIRUBIN TOTAL 1.7 mg/dL (0.1-1.3); PROTEIN TOTAL,TP 8.4 g/dL (6.0-8.0)
[2024-06-18] MEDS: Metoclopramide 10 MG/2 ML SDV IVPUSH PRN (09:41)
[2024-06-18 10:31] VITALS: BP 112/74; PULSE 99
[2024-06-18 10:36] LABS: THC SCREEN,URINE POSITIVE (NEGATIVE)
[2024-06-18 10:37] LABS: AMPHETAMINES SCREEN, URINE NEGATIVE (NEGATIVE); BARBITURATE SCREEN,URINE NEGATIVE (NEGATIVE); BENZODIAZEPINES SCREEN,URINE POSITIVE (NEGATIVE); BUPRENORPHINE SCREEN,URINE NEGATIVE (NEGATIVE); METHADONE SCREEN, URINE NEGATIVE (NEGATIVE); METHAMPHETAMINE SCREEN, URINE NEGATIVE (NEGATIVE); OXYCODONE SCREEN,URINE NEGATIVE (NEGATIVE)
== END 2024-06-18 10:25 | disposition home or self-care (01) ==
LOC: FB.ED 08:18
DX: F10.10 Alcohol abuse, uncomplicated (principal); Z88.2 Allergy status to sulfonamides; Z79.899 Other long term (current) drug therapy
CPT/HCPCS: 80053; 80307; 83735; 85025; 96361; 96374; 96375; 96376; 99284; J2060; J2405; J2765; J7030

== ENCOUNTER 2024-06-20 06:56 | Emergency (ER) | payer BC ==
[2024-06-20] MEDS: LORazepam 2 MG/ML SDV IVPUSH ONE (07:34)
[2024-06-20] MEDS: Sodium Chloride 0.9% 1,000 ML IV SCH (07:34)
[2024-06-20] MEDS ORDERED: Sodium Chloride 0.9% 10 ML Syringe FLUSH PRN (07:38)
[2024-06-20] MEDS: Ondansetron 4 MG/2 ML SDV IVPUSH ONE (07:38)
[2024-06-20 07:58] LABS: HEMATOCRIT 51.3 % (38.3-50.1); HEMOGLOBIN 18.1 g/dL (12.9-17.7); MEAN CORPUSCULAR HGB CONC 35.3 g/dL (28.7-35.3); MEAN CORPUSCULAR VOLUME 93.5 fL (80.8-98.7); MEAN PLATELET VOLUME 7.2 fL (6.7-11.0); PLATELET COUNT,PLT 307 x10(3)uL (117-477); RED BLOOD CELL COUNT 5.49 x10(6)uL (3.90-5.90); RED CELL DISTRIBUTION WIDTH 12.6 % (12.4-15.0); WHITE BLOOD CELL COUNT,WBC 16.9 x10-3/uL (3.2-10.1)
[2024-06-20 08:03] LABS: A/G RATIO 1.5; ALANINE AMINOTRANSFERASE,ALT 42 U/L (12-36); ALBUMIN 5.1 g/dL (3.5-5.2); ALKALINE PHOSPHATASE 85 IU/L (56-112); ASPARTATE AMNIOTRANSFERASE,AST 41 IU/L (5-25); BILIRUBIN TOTAL 1.9 mg/dL (0.1-1.3); BLOOD UREA NITROGEN,BUN 14 mg/dL (7-18); CALCIUM 10.1 mg/dL (8.6-10.2); CARBON DIOXIDE,CO2 31 mmol/L (21-32); CREATININE 1.4 mg/dL (0.70-1.30); ESTIMATED GFR 69 mL/min (>60); GLUCOSE RANDOM 138 mg/dL (80-116); POTASSIUM,K 3.1 mmol/L (3.5-5.3); PROTEIN TOTAL,TP 8.6 g/dL (6.0-8.0); SODIUM,NA 140 mmol/L (135-145)
[2024-06-20 08:08] LABS: CHLORIDE,CL 89 mmol/L (100-110); EST CRCL DRUG DOSING (CG) 64.35 mL/min
[2024-06-20 08:13] LABS: LACTIC ACID 9.1 mmol/L (0.4-2.0)
[2024-06-20 08:23] LABS: BAND PERCENT MAN 1 % (0-6); LYMPHOCYTES PERCENT MAN 8 % (13-37); MONOCYTES PERCENT MAN 1 % (4-12); SEG NEUTROPHILS PERCENT MAN 90 % (46-82)
[2024-06-20] MEDS: Sodium Chloride 0.9% 1,000 ML IV ONE ×2 (08:31→09:47)
[2024-06-20] MEDS: Potassium Chloride 20 MEQ Tab.ER PO ONE ×2 (08:32→11:32)
[2024-06-20] MEDS ORDERED: Sodium Chloride 0.9% 250 ML AdvBag IV ONE (09:55)
[2024-06-20 10:07] LABS: AMPHETAMINES SCREEN, URINE NEGATIVE (NEGATIVE); BENZODIAZEPINES SCREEN,URINE POSITIVE (NEGATIVE); METHAMPHETAMINE SCREEN, URINE NEGATIVE (NEGATIVE); THC SCREEN,URINE POSITIVE (NEGATIVE)
[2024-06-20 10:08] LABS: BARBITURATE SCREEN,URINE NEGATIVE (NEGATIVE); BUPRENORPHINE SCREEN,URINE NEGATIVE (NEGATIVE); METHADONE SCREEN, URINE NEGATIVE (NEGATIVE); OXYCODONE SCREEN,URINE NEGATIVE (NEGATIVE)
[2024-06-20] MEDS: Metoclopramide 10 MG/2 ML SDV IVPUSH ONE (10:42)
[2024-06-20 11:09] LABS: BLOOD UREA NITROGEN,BUN 14 mg/dL (7-18); BUN/CREATININE RATIO 12.7 (9-20); CALCIUM 7.8 mg/dL (8.6-10.2); CARBON DIOXIDE,CO2 33 mmol/L (21-32); CHLORIDE,CL 97 mmol/L (100-110); CREATININE 1.1 mg/dL (0.70-1.30); ESTIMATED GFR 93 mL/min (>60); GLUCOSE RANDOM 107 mg/dL (80-116); POTASSIUM,K 3.3 mmol/L (3.5-5.3); SODIUM,NA 140 mmol/L (135-145)
[2024-06-20 11:15] LABS: A/G RATIO 1.4; ALANINE AMINOTRANSFERASE,ALT 27 U/L (12-36); ALBUMIN 3.5 g/dL (3.5-5.2); ALKALINE PHOSPHATASE 62 IU/L (56-112); ASPARTATE AMNIOTRANSFERASE,AST 28 IU/L (5-25); BILIRUBIN TOTAL 1.8 mg/dL (0.1-1.3)
[2024-06-20 12:01] VITALS: BP 128/75; PULSE 98
== END 2024-06-20 11:45 | disposition home or self-care (01) ==
LOC: FB.ED 06:56
DX: F10.20 Alcohol dependence, uncomplicated (principal); E87.6 Hypokalemia; Z88.2 Allergy status to sulfonamides; Z79.899 Other long term (current) drug therapy
CPT/HCPCS: 80053; 80307; 83605; 83690; 85025; 96361; 96374; 96375; 99284; 99284-25; A9270-GY; J2060; J2405; J2765; J7030

== ENCOUNTER 2024-07-10 04:49 | Emergency (ER) | payer BC ==
[2024-07-10] MEDS: Sodium Chloride 0.9% 1,000 ML IV ONE ×3 (05:32→06:52)
[2024-07-10] MEDS: Ondansetron 4 MG/2 ML SDV IVPUSH ONE (05:32)
[2024-07-10] MEDS: LORazepam 2 MG/ML SDV IVPUSH ONE (05:33)
[2024-07-10 05:36] LABS: BASOPHILS ABSOLUTE AUTO 0.1 x10-3/uL (0.0-0.3); BASOPHILS PERCENT AUTO 0.5 % (0.3-3.8); EOSINOPHILS PERCENT AUTO 0.2 % (0.1-6.8); HEMATOCRIT 52.1 % (38.3-50.1); HEMOGLOBIN 18.6 g/dL (12.9-17.7); LYMPHOCYTES ABSOLUTE AUTO 1.9 x10-3/uL (0.5-4.5); LYMPHOCYTES PERCENT AUTO 19.6 % (15.8-45.3); MEAN CORPUSCULAR HEMOGLOBIN 32.2 pg (27.0-33.3); MEAN CORPUSCULAR HGB CONC 35.6 g/dL (28.7-35.3); MEAN CORPUSCULAR VOLUME 90.3 fL (80.8-98.7); MONOCYTES ABSOLUTE AUTO 0.6 x10-3/uL (0.0-1.2); MONOCYTES PERCENT AUTO 5.8 % (5.5-15.2); NEUTROPHILS ABSOLUTE AUTO 7.2 x10-3/uL (1.7-6.9); NEUTROPHILS PERCENT AUTO 73.9 % (40.3-71.8); PLATELET COUNT,PLT 423 x10(3)uL (117-477); RED BLOOD CELL COUNT 5.77 x10(6)uL (3.90-5.90); RED CELL DISTRIBUTION WIDTH 13.3 % (12.4-15.0); WHITE BLOOD CELL COUNT,WBC 9.8 x10-3/uL (3.2-10.1)
[2024-07-10 05:38] LABS: C-REACTIVE PROTEIN <0.50 mg/dL (<0.50); INR 1.05 (1.00-1.24); LIPASE 29 U/L (16-77); PROTHROMBIN TIME 10.9 sec (9.0-11.1)
[2024-07-10 05:40] LABS: A/G RATIO 1.4; ALANINE AMINOTRANSFERASE,ALT 40 U/L (12-36); ALBUMIN 5.2 g/dL (3.5-5.2); ALKALINE PHOSPHATASE 71 IU/L (56-112); ASPARTATE AMNIOTRANSFERASE,AST 32 IU/L (5-25); BILIRUBIN TOTAL 2.4 mg/dL (0.1-1.3); BLOOD UREA NITROGEN,BUN 18 mg/dL (7-18); CALCIUM 10.4 mg/dL (8.6-10.2); CARBON DIOXIDE,CO2 29 mmol/L (21-32); CREATININE 1.5 mg/dL (0.70-1.30); ESTIMATED GFR 64 mL/min (>60); GLUCOSE RANDOM 128 mg/dL (80-116); MAGNESIUM 1.9 mg/dL (1.8-2.5); POTASSIUM,K 3.1 mmol/L (3.5-5.3); PROTEIN TOTAL,TP 8.8 g/dL (6.0-8.0); SODIUM,NA 136 mmol/L (135-145)
[2024-07-10 05:41] LABS: ETHANOL BLOOD MEDICAL < 0.03 % (<0.03)
[2024-07-10 05:47] LABS: CHLORIDE,CL 87 mmol/L (100-110)
[2024-07-10] MEDS: Potassium Chloride 20 MEQ Tab.ER PO ONE (06:54)
[2024-07-10] MEDS ORDERED: Ondansetron 4 MG/2 ML SDV IVPUSH ONE (07:12)
[2024-07-10] MEDS: Prochlorperazine 10 MG/2 ML SDV IVPUSH ONE (07:20)
[2024-07-10 08:11] LABS: BASE EXCESS VENOUS,POC 7 mmol/L (-2 - 3+); PCO2 VENOUS,POC 45 mmHg (41-51); PH VENOUS,POC 7.46 pH Units (7.32-7.43)
[2024-07-10] MEDS: Potassium Chloride 20 MEQ Tab.ER PO STA (09:12)
[2024-07-10 09:37] VITALS: BP 109/67; PULSE 100
== END 2024-07-10 09:15 | disposition home or self-care (01) ==
LOC: FB.ED 04:49 → SUPCPDRO 04:49 → FB.ED 09:15
DX: N28.9 Disorder of kidney and ureter, unspecified (principal); E87.20 Acidosis, unspecified; E86.0 Dehydration; E87.6 Hypokalemia; F10.939 Alcohol use, unspecified with withdrawal, unspecified; Z88.2 Allergy status to sulfonamides; Z79.899 Other long term (current) drug therapy
CPT/HCPCS: 36415; 80053; 80307; 82550; 83605; 83690; 83735; 85025; 85610; 86140; 96361; 96374; 96375; 99284; A9270; J0780; J2060; J2405; J7030

== ENCOUNTER 2024-07-13 11:05 | Emergency (ER) | payer BC ==
[2024-07-13] MEDS ORDERED: Sodium Chloride 0.9% 10 ML Syringe FLUSH PRN (11:14)
[2024-07-13] MEDS: LORazepam 2 MG/ML SDV IVPUSH ONE (11:25)
[2024-07-13] MEDS: Prochlorperazine 10 MG/2 ML SDV IVPUSH ONE (11:26)
[2024-07-13] MEDS: Thiamine 200 MG/2 ML MDV IVPUSH ONE (11:27)
[2024-07-13] MEDS: Sodium Chloride 0.9% 1,000 ML IV SCH ×2 (11:31→12:45)
[2024-07-13 11:40] LABS: HEMATOCRIT 50.9 % (38.3-50.1); HEMOGLOBIN 17.9 g/dL (12.9-17.7); MEAN CORPUSCULAR HEMOGLOBIN 32.7 pg (27.0-33.3); MEAN CORPUSCULAR HGB CONC 35.1 g/dL (28.7-35.3); MEAN CORPUSCULAR VOLUME 93.3 fL (80.8-98.7); MEAN PLATELET VOLUME 6.6 fL (6.7-11.0); PLATELET COUNT,PLT 314 x10(3)uL (117-477); RED BLOOD CELL COUNT 5.46 x10(6)uL (3.90-5.90); RED CELL DISTRIBUTION WIDTH 12.6 % (12.4-15.0); WHITE BLOOD CELL COUNT,WBC 14.3 x10-3/uL (3.2-10.1)
[2024-07-13 11:47] LABS: A/G RATIO 1.4; ALANINE AMINOTRANSFERASE,ALT 32 U/L (12-36); ALKALINE PHOSPHATASE 64 IU/L (56-112); ASPARTATE AMNIOTRANSFERASE,AST 27 IU/L (5-25); BILIRUBIN TOTAL 1.2 mg/dL (0.1-1.3); BLOOD UREA NITROGEN,BUN 15 mg/dL (7-18); BUN/CREATININE RATIO 10.7 (9-20); CARBON DIOXIDE,CO2 31 mmol/L (21-32); CHLORIDE,CL 95 mmol/L (100-110); CREATININE 1.4 mg/dL (0.70-1.30); ESTIMATED GFR 69 mL/min (>60); GLUCOSE RANDOM 112 mg/dL (80-116); PROTEIN TOTAL,TP 8.5 g/dL (6.0-8.0); SODIUM,NA 142 mmol/L (135-145)
[2024-07-13 11:53] LABS: POTASSIUM,K 2.7 mmol/L (3.5-5.3)
[2024-07-13] MEDS: Potassium Chloride 20 MEQ Tab.ER PO ONE (12:05)
[2024-07-13 12:10] LABS: LYMPHOCYTES PERCENT MAN 12 % (13-37); MONOCYTES PERCENT MAN 2 % (4-12); SEG NEUTROPHILS PERCENT MAN 86 % (46-82)
[2024-07-13 14:02] VITALS: BP 138/90; PULSE 88
== END 2024-07-13 14:00 | disposition home or self-care (01) ==
LOC: FB.ED 11:05
DX: F10.239 Alcohol dependence with withdrawal, unspecified (principal); F32.9 Major depressive disorder, single episode, unspecified; E87.6 Hypokalemia; Z88.2 Allergy status to sulfonamides; Z79.899 Other long term (current) drug therapy; Y90.9 Presence of alcohol in blood, level not specified
CPT/HCPCS: 36415; 80053; 80307; 83690; 83735; 85025; 96361; 96374; 96375; 99284; 99284-25; A9270-GY; J0780; J2060; J3411; J7030

== ENCOUNTER 2024-07-29 03:24 | Emergency (ER) | payer BC ==
[2024-07-29] MEDS: Ondansetron 4 MG/2 ML SDV IVPUSH ONE (04:03)
[2024-07-29] MEDS: diazePAM 10 MG/2 ML Syringe IVPUSH ONE (04:04)
[2024-07-29] MEDS: Sodium Chloride 0.9% 1,000 ML IV ONE ×2 (04:06→05:33)
[2024-07-29] MEDS: Thiamine 200 MG/2 ML MDV IVPUSH ONE (04:11)
[2024-07-29 04:12] LABS: HEMATOCRIT 52.1 % (38.3-50.1); HEMOGLOBIN 18.8 g/dL (12.9-17.7); MEAN CORPUSCULAR HEMOGLOBIN 32.1 pg (27.0-33.3); MEAN PLATELET VOLUME 6.7 fL (6.7-11.0); PLATELET COUNT,PLT 465 x10(3)uL (117-477); RED BLOOD CELL COUNT 5.86 x10(6)uL (3.90-5.90); RED CELL DISTRIBUTION WIDTH 13.6 % (12.4-15.0); WHITE BLOOD CELL COUNT,WBC 18.7 x10-3/uL (3.2-10.1)
[2024-07-29 04:17] LABS: BLOOD UREA NITROGEN,BUN 17 mg/dL (7-18); BUN/CREATININE RATIO 10.6 (9-20); CALCIUM 9.9 mg/dL (8.6-10.2); CARBON DIOXIDE,CO2 32 mmol/L (21-32); CHLORIDE,CL 91 mmol/L (100-110); CREATININE 1.6 mg/dL (0.70-1.30); EST CRCL DRUG DOSING (CG) 60.64 mL/min; ESTIMATED GFR 59 mL/min (>60); GLUCOSE RANDOM 141 mg/dL (80-116); POTASSIUM,K 3.3 mmol/L (3.5-5.3); SODIUM,NA 142 mmol/L (135-145)
[2024-07-29 04:21] LABS: A/G RATIO 1.5; ALANINE AMINOTRANSFERASE,ALT 28 U/L (12-36); ALBUMIN 4.8 g/dL (3.5-5.2); ALKALINE PHOSPHATASE 63 IU/L (56-112); ASPARTATE AMNIOTRANSFERASE,AST 31 IU/L (5-25); BILIRUBIN TOTAL 1.3 mg/dL (0.1-1.3); PROTEIN TOTAL,TP 8.1 g/dL (6.0-8.0)
[2024-07-29 04:30] LABS: INR 1.04 (1.00-1.24); PROTHROMBIN TIME 10.8 sec (9.0-11.1)
[2024-07-29 04:40] LABS: LYMPHOCYTES PERCENT MAN 18 % (13-37); MONOCYTES PERCENT MAN 5 % (4-12); SEG NEUTROPHILS PERCENT MAN 77 % (46-82)
[2024-07-29 05:15] LABS: AMPHETAMINES SCREEN, URINE NEGATIVE (NEGATIVE); BARBITURATE SCREEN,URINE NEGATIVE (NEGATIVE); BENZODIAZEPINES SCREEN,URINE POSITIVE (NEGATIVE); BUPRENORPHINE SCREEN,URINE NEGATIVE (NEGATIVE); METHADONE SCREEN, URINE NEGATIVE (NEGATIVE); METHAMPHETAMINE SCREEN, URINE NEGATIVE (NEGATIVE); OXYCODONE SCREEN,URINE NEGATIVE (NEGATIVE); THC SCREEN,URINE POSITIVE (NEGATIVE)
[2024-07-29] MEDS: Prochlorperazine 10 MG/2 ML SDV IVPUSH ONE (05:33)
[2024-07-29 05:45] VITALS: BP 115/71; PULSE 88
[2024-07-29] MEDS: Potassium Chloride 20 MEQ in Premix Bag 1 BAG IV ONE (05:47)
== END 2024-07-29 10:45 | disposition left against medical advice (07) ==
LOC: FB.ED 03:24
DX: F10.930 Alcohol use, unspecified with withdrawal, uncomplicated (principal); F17.210 Nicotine dependence, cigarettes, uncomplicated; Z88.2 Allergy status to sulfonamides; Z79.899 Other long term (current) drug therapy
CPT/HCPCS: 36415; 80053; 80307; 83735; 84100; 85025; 85610; 85730; 96361; 96365; 96366; 96375; 99284; J0780; J2405; J3360; J3411; J3480; J7030

== ENCOUNTER 2024-08-10 05:43 | Emergency (ER) | payer BC ==
[2024-08-10] MEDS ORDERED: Sodium Chloride 0.9% 10 ML Syringe FLUSH PRN (06:18)
[2024-08-10] MEDS: Sodium Chloride 0.9% 1,000 ML IV ONE ×2 (06:28→07:10)
[2024-08-10] MEDS: Ondansetron 4 MG/2 ML SDV IVPUSH ONE (06:28)
[2024-08-10 06:32] LABS: BASOPHILS PERCENT AUTO 0.3 % (0.3-3.8); EOSINOPHILS PERCENT AUTO 0.2 % (0.1-6.8); HEMATOCRIT 47.1 % (38.3-50.1); LYMPHOCYTES ABSOLUTE AUTO 1.1 x10-3/uL (0.5-4.5); LYMPHOCYTES PERCENT AUTO 9.5 % (15.8-45.3); MEAN CORPUSCULAR HEMOGLOBIN 31.8 pg (27.0-33.3); MEAN CORPUSCULAR HGB CONC 36.1 g/dL (28.7-35.3); MEAN CORPUSCULAR VOLUME 88.1 fL (80.8-98.7); MEAN PLATELET VOLUME 6.8 fL (6.7-11.0); MONOCYTES PERCENT AUTO 8.9 % (5.5-15.2); NEUTROPHILS ABSOLUTE AUTO 9.6 x10-3/uL (1.7-6.9); NEUTROPHILS PERCENT AUTO 81.1 % (40.3-71.8); PLATELET COUNT,PLT 264 x10(3)uL (117-477); RED BLOOD CELL COUNT 5.35 x10(6)uL (3.90-5.90); RED CELL DISTRIBUTION WIDTH 13.9 % (12.4-15.0); WHITE BLOOD CELL COUNT,WBC 11.8 x10-3/uL (3.2-10.1)
[2024-08-10 06:43] LABS: A/G RATIO 1.5; ALANINE AMINOTRANSFERASE,ALT 27 U/L (12-36); ALBUMIN 4.9 g/dL (3.5-5.2); ALKALINE PHOSPHATASE 83 IU/L (56-112); ASPARTATE AMNIOTRANSFERASE,AST 30 IU/L (5-25); BILIRUBIN TOTAL 2.8 mg/dL (0.1-1.3); BLOOD UREA NITROGEN,BUN 29 mg/dL (7-18); BUN/CREATININE RATIO 13.2 (9-20); CALCIUM 9.7 mg/dL (8.6-10.2); CARBON DIOXIDE,CO2 39 mmol/L (21-32); EST CRCL DRUG DOSING (CG) 46.62 mL/min; ESTIMATED GFR 40 mL/min (>60); GLUCOSE RANDOM 155 mg/dL (80-116); MAGNESIUM 1.8 mg/dL (1.8-2.5); PROTEIN TOTAL,TP 8.1 g/dL (6.0-8.0); SODIUM,NA 136 mmol/L (135-145)
[2024-08-10 06:46] LABS: CHLORIDE,CL 85 mmol/L (100-110); POTASSIUM,K 2.8 mmol/L (3.5-5.3)
[2024-08-10 06:47] LABS: CREATININE 2.2 mg/dL (0.70-1.30)
[2024-08-10] MEDS: diazePAM 10 MG/2 ML Syringe IVPUSH ONE (07:10)
[2024-08-10] MEDS: Potassium Chloride 20 MEQ in Premix Bag 1 BAG IV ONE (07:15)
[2024-08-10 07:32] LABS: BASE EXCESS VENOUS,POC 13 mmol/L (-2 - 3+); PCO2 VENOUS,POC 38 mmHg (41-51); PH VENOUS,POC 7.59 pH Units (7.32-7.43)
[2024-08-10 08:11] LABS: APPEARANCE,URINE CLEAR (CLEAR); BILIRUBIN,URINE NEGATIVE (NEGATIVE); COLOR,URINE YELLOW (YELLOW); GLUCOSE,URINE NORMAL (NORMAL); KETONES,URINE 50 mg/dL (NEGATIVE); LEUKOCYTE ESTERASE,URINE NEGATIVE (NEGATIVE); NITRITE,URINE NEGATIVE (NEGATIVE); OCCULT BLOOD,URINE NEGATIVE (NEGATIVE); PROTEIN,URINE NEGATIVE (NEGATIVE); UROBILINOGEN,URINE NORMAL (NEGATIVE)
[2024-08-10 08:20] LABS: AMPHETAMINES SCREEN, URINE NEGATIVE (NEGATIVE); BARBITURATE SCREEN,URINE NEGATIVE (NEGATIVE); BENZODIAZEPINES SCREEN,URINE POSITIVE (NEGATIVE); BUPRENORPHINE SCREEN,URINE NEGATIVE (NEGATIVE); METHADONE SCREEN, URINE NEGATIVE (NEGATIVE); METHAMPHETAMINE SCREEN, URINE NEGATIVE (NEGATIVE); OXYCODONE SCREEN,URINE NEGATIVE (NEGATIVE); THC SCREEN,URINE POSITIVE (NEGATIVE)
[2024-08-10 10:07] VITALS: BP 130/90; PULSE 90
== END 2024-08-10 09:58 | disposition home or self-care (01) ==
LOC: FB.ED 05:43 → SUPCPDRO 05:43 → FB.ED 09:58
DX: F10.130 Alcohol abuse with withdrawal, uncomplicated (principal); E86.0 Dehydration; E87.6 Hypokalemia; N17.9 Acute kidney failure, unspecified; K21.9 Gastro-esophageal reflux disease without esophagitis; Z79.899 Other long term (current) drug therapy; Z88.2 Allergy status to sulfonamides
CPT/HCPCS: 36415; 80053; 80307; 81003; 83605; 83735; 85025; 96361; 96365; 96366; 96375; 99284; 99284-25; J2405; J3360; J3480; J7030

== ENCOUNTER 2024-08-22 00:41 | Emergency (ER) | payer BC ==
[2024-08-22] MEDS: LORazepam 2 MG/ML SDV IVPUSH ONE (01:16)
[2024-08-22] MEDS: Sodium Chloride 0.9% 1,000 ML IV ONE ×2 (01:17→02:11)
[2024-08-22] MEDS: Ondansetron 4 MG/2 ML SDV IVPUSH ONE ×2 (01:17→09:12)
[2024-08-22 01:25] LABS: HEMATOCRIT 49.3 % (38.3-50.1); HEMOGLOBIN 17.6 g/dL (12.9-17.7); MEAN CORPUSCULAR HEMOGLOBIN 31.9 pg (27.0-33.3); MEAN CORPUSCULAR HGB CONC 35.7 g/dL (28.7-35.3); MEAN CORPUSCULAR VOLUME 89.4 fL (80.8-98.7); MEAN PLATELET VOLUME 6.9 fL (6.7-11.0); PLATELET COUNT,PLT 583 x10(3)uL (117-477); RED BLOOD CELL COUNT 5.52 x10(6)uL (3.90-5.90); RED CELL DISTRIBUTION WIDTH 14.8 % (12.4-15.0); WHITE BLOOD CELL COUNT,WBC 16.8 x10-3/uL (3.2-10.1)
[2024-08-22 01:37] LABS: A/G RATIO 1.4; ALANINE AMINOTRANSFERASE,ALT 38 U/L (12-36); ALBUMIN 5.2 g/dL (3.5-5.2); ALKALINE PHOSPHATASE 92 IU/L (56-112); ASPARTATE AMNIOTRANSFERASE,AST 28 IU/L (5-25); BILIRUBIN TOTAL 1.8 mg/dL (0.1-1.3); BLOOD UREA NITROGEN,BUN 21 mg/dL (7-18); BUN/CREATININE RATIO 7.5 (9-20); CARBON DIOXIDE,CO2 32 mmol/L (21-32); ESTIMATED GFR 30 mL/min (>60); GLUCOSE RANDOM 200 mg/dL (80-116); MAGNESIUM 1.4 mg/dL (1.8-2.5); POTASSIUM,K 3.4 mmol/L (3.5-5.3); PROTEIN TOTAL,TP 8.9 g/dL (6.0-8.0); SODIUM,NA 140 mmol/L (135-145)
[2024-08-22 01:46] LABS: BAND PERCENT MAN 4 % (0-6); LYMPHOCYTES PERCENT MAN 12 % (13-37); MONOCYTES PERCENT MAN 7 % (4-12); SEG NEUTROPHILS PERCENT MAN 77 % (46-82)
[2024-08-22 01:48] LABS: CHLORIDE,CL 89 mmol/L (100-110); CREATININE 2.8 mg/dL (0.70-1.30)
[2024-08-22] MEDS: Magnesium Sulf 1 GM/2 mL SDV 1 GM in Sodium Chloride 0.9% 50 ML IV ONE (02:10)
[2024-08-22 05:48] LABS: BLOOD UREA NITROGEN,BUN 20 mg/dL (7-18); BUN/CREATININE RATIO 11.8 (9-20); CALCIUM 8.5 mg/dL (8.6-10.2); CARBON DIOXIDE,CO2 39 mmol/L (21-32); CHLORIDE,CL 96 mmol/L (100-110); CREATININE 1.7 mg/dL (0.70-1.30); ESTIMATED GFR 55 mL/min (>60); GLUCOSE RANDOM 114 mg/dL (80-116); SODIUM,NA 142 mmol/L (135-145)
[2024-08-22 05:50] LABS: POTASSIUM,K 2.6 mmol/L (3.5-5.3)
[2024-08-22] MEDS: Potassium Chloride 20 MEQ Tab.ER PO STA (06:17)
[2024-08-22] MEDS: Magnesium Sulfate 2 GM/50 mL 2 GM in Premix Bag 1 BAG IV ONE (06:18)
[2024-08-22] MEDS: Sodium Chloride 0.9% 1,000 ML IV SCH (06:18)
[2024-08-22] MEDS: Potassium Chloride 20 MEQ Tab.ER PO ONE (07:54)
[2024-08-22] MEDS ORDERED: Potassium Chloride 20 MEQ Tab.ER PO ONE (08:15)
[2024-08-22 08:43] LABS: BLOOD UREA NITROGEN,BUN 19 mg/dL (7-18); BUN/CREATININE RATIO 11.2 (9-20); CALCIUM 8.3 mg/dL (8.6-10.2); CARBON DIOXIDE,CO2 39 mmol/L (21-32); CHLORIDE,CL 97 mmol/L (100-110); CREATININE 1.7 mg/dL (0.70-1.30); ESTIMATED GFR 55 mL/min (>60); GLUCOSE RANDOM 98 mg/dL (80-116); POTASSIUM,K 3.2 mmol/L (3.5-5.3); SODIUM,NA 140 mmol/L (135-145)
[2024-08-22 09:21] VITALS: BP 110/69; PULSE 77
== END 2024-08-22 09:21 | disposition home or self-care (01) ==
LOC: FB.ED 00:41
DX: F10.20 Alcohol dependence, uncomplicated (principal); N17.9 Acute kidney failure, unspecified; Z88.2 Allergy status to sulfonamides
CPT/HCPCS: 36415; 80048; 80053; 83690; 83735; 85025; 96361; 96365; 96366; 96375; 96376; 99284-25; A9270-GY; J2060; J2405; J3475; J7030

== ENCOUNTER 2024-09-25 10:04 | Emergency (ER) | payer BC ==
[2024-09-25] MEDS ORDERED: Sodium Chloride 0.9% 10 ML Syringe FLUSH PRN (10:28)
[2024-09-25] MEDS: Ondansetron 4 MG/2 ML SDV IVPUSH ONE (10:38)
[2024-09-25] MEDS: LORazepam 2 MG/ML SDV IVPUSH ONE (10:42)
[2024-09-25 10:51] LABS: BASOPHILS ABSOLUTE AUTO 0.1 x10-3/uL (0.0-0.3); BASOPHILS PERCENT AUTO 0.5 % (0.3-3.8); EOSINOPHILS ABSOLUTE AUTO 0.0 x10-3/uL (0.0-0.6); EOSINOPHILS PERCENT AUTO 0.2 % (0.1-6.8); LYMPHOCYTES ABSOLUTE AUTO 1.9 x10-3/uL (0.5-4.5); LYMPHOCYTES PERCENT AUTO 15.1 % (15.8-45.3); MEAN PLATELET VOLUME 7.4 fL (6.7-11.0); MONOCYTES ABSOLUTE AUTO 0.8 x10-3/uL (0.0-1.2); MONOCYTES PERCENT AUTO 5.8 % (5.5-15.2); NEUTROPHILS ABSOLUTE AUTO 10.1 x10-3/uL (1.7-6.9); NEUTROPHILS PERCENT AUTO 78.4 % (40.3-71.8); PLATELET COUNT,PLT 477 x10(3)uL (117-477); RED BLOOD CELL COUNT 5.23 x10(6)uL (3.90-5.90); RED CELL DISTRIBUTION WIDTH 13.8 % (12.4-15.0); WHITE BLOOD CELL COUNT,WBC 12.9 x10-3/uL (3.2-10.1)
[2024-09-25 11:05] LABS: A/G RATIO 1.7; ALANINE AMINOTRANSFERASE,ALT 28 U/L (12-36); ASPARTATE AMNIOTRANSFERASE,AST 35 IU/L (5-25); BILIRUBIN TOTAL 2.1 mg/dL (0.1-1.3); BLOOD UREA NITROGEN,BUN 28 mg/dL (7-18); CARBON DIOXIDE,CO2 31 mmol/L (21-32); CHLORIDE,CL 91 mmol/L (100-110); CREATININE 1.6 mg/dL (0.70-1.30); ESTIMATED GFR 59 mL/min (>60); GLUCOSE RANDOM 136 mg/dL (80-116); POTASSIUM,K 2.9 mmol/L (3.5-5.3); PROTEIN TOTAL,TP 8.8 g/dL (6.0-8.0); SODIUM,NA 137 mmol/L (135-145)
[2024-09-25 11:14] LABS: ETHANOL BLOOD MEDICAL < 0.03 % (<0.03)
[2024-09-25] MEDS: Potassium Chloride 20 MEQ in Premix Bag 1 BAG IV ONE (11:31)
[2024-09-25 15:34] VITALS: BP 118/76; PULSE 70
== END 2024-09-25 15:38 | disposition home or self-care (01) ==
LOC: FB.ED 10:04
DX: F10.939 Alcohol use, unspecified with withdrawal, unspecified (principal); F17.200 Nicotine dependence, unspecified, uncomplicated; Z88.2 Allergy status to sulfonamides; Z79.899 Other long term (current) drug therapy
CPT/HCPCS: 80053; 80307; 82272; 83690; 83735; 85025; 86140; 96361; 96365; 96366; 96375; 99284; J2060; J2405; J2470; J3480; J7030

== ENCOUNTER 2024-10-01 07:54 | Emergency (ER) | payer BC ==
[2024-10-01] MEDS ORDERED: Sodium Chloride 0.9% 10 ML Syringe FLUSH PRN (08:28)
[2024-10-01] MEDS: Ondansetron 4 MG/2 ML SDV IVPUSH ONE (08:46)
[2024-10-01] MEDS: LORazepam 2 MG/ML SDV IVPUSH ONE (08:48)
[2024-10-01 08:49] LABS: BASOPHILS ABSOLUTE AUTO 0.0 x10-3/uL (0.0-0.3); BASOPHILS PERCENT AUTO 0.3 % (0.3-3.8); EOSINOPHILS ABSOLUTE AUTO 0.0 x10-3/uL (0.0-0.6); EOSINOPHILS PERCENT AUTO 0.5 % (0.1-6.8); LYMPHOCYTES ABSOLUTE AUTO 1.1 x10-3/uL (0.5-4.5); LYMPHOCYTES PERCENT AUTO 24.6 % (15.8-45.3); MEAN PLATELET VOLUME 6.7 fL (6.7-11.0); MONOCYTES ABSOLUTE AUTO 0.4 x10-3/uL (0.0-1.2); MONOCYTES PERCENT AUTO 9.5 % (5.5-15.2); NEUTROPHILS ABSOLUTE AUTO 2.9 x10-3/uL (1.7-6.9); NEUTROPHILS PERCENT AUTO 65.1 % (40.3-71.8); PLATELET COUNT,PLT 306 x10(3)uL (117-477); RED BLOOD CELL COUNT 4.64 x10(6)uL (3.90-5.90); RED CELL DISTRIBUTION WIDTH 13.1 % (12.4-15.0); WHITE BLOOD CELL COUNT,WBC 4.4 x10-3/uL (3.2-10.1)
[2024-10-01 08:57] LABS: A/G RATIO 1.8; ALANINE AMINOTRANSFERASE,ALT 30 U/L (12-36); ASPARTATE AMNIOTRANSFERASE,AST 28 IU/L (5-25); BILIRUBIN TOTAL 2.6 mg/dL (0.1-1.3); BLOOD UREA NITROGEN,BUN 15 mg/dL (7-18); CARBON DIOXIDE,CO2 35 mmol/L (21-32); CHLORIDE,CL 90 mmol/L (100-110); CREATININE 1.4 mg/dL (0.70-1.30); ESTIMATED GFR 69 mL/min (>60); GLUCOSE RANDOM 110 mg/dL (80-116); POTASSIUM,K 2.9 mmol/L (3.5-5.3); PROTEIN TOTAL,TP 7.6 g/dL (6.0-8.0); SODIUM,NA 136 mmol/L (135-145)
[2024-10-01 09:00] LABS: LACTIC ACID 1.5 mmol/L (0.4-2.0)
[2024-10-01] MEDS: Potassium Chloride 20 MEQ Tab.ER PO ONE (09:20)
[2024-10-01 11:02] VITALS: BP 120/68; PULSE 72
== END 2024-10-01 10:55 | disposition home or self-care (01) ==
LOC: FB.ED 07:54
DX: F10.230 Alcohol dependence with withdrawal, uncomplicated (principal); E86.0 Dehydration; E87.6 Hypokalemia; K21.9 Gastro-esophageal reflux disease without esophagitis; Z88.2 Allergy status to sulfonamides; Z79.899 Other long term (current) drug therapy; Y90.9 Presence of alcohol in blood, level not specified
CPT/HCPCS: 36415; 80053; 80307; 83605; 83690; 85025; 96365; 96366; 96375; 99284; A9270; J2060; J2405; J3411; J7030

== ENCOUNTER 2024-10-26 09:05 | Emergency (ER) | payer BC ==
[2024-10-26] MEDS: Thiamine 200 MG/2 ML MDV IVPUSH ONE (09:45)
[2024-10-26 09:57] LABS: BASOPHILS ABSOLUTE AUTO 0.0 x10-3/uL (0.0-0.3); BASOPHILS PERCENT AUTO 0.3 % (0.3-3.8); EOSINOPHILS ABSOLUTE AUTO 0.0 x10-3/uL (0.0-0.6); EOSINOPHILS PERCENT AUTO 0.6 % (0.1-6.8); LYMPHOCYTES ABSOLUTE AUTO 1.1 x10-3/uL (0.5-4.5); LYMPHOCYTES PERCENT AUTO 19.2 % (15.8-45.3); MEAN PLATELET VOLUME 6.5 fL (6.7-11.0); MONOCYTES ABSOLUTE AUTO 0.3 x10-3/uL (0.0-1.2); MONOCYTES PERCENT AUTO 5.0 % (5.5-15.2); NEUTROPHILS ABSOLUTE AUTO 4.4 x10-3/uL (1.7-6.9); NEUTROPHILS PERCENT AUTO 74.9 % (40.3-71.8); PLATELET COUNT,PLT 247 x10(3)uL (117-477); RED BLOOD CELL COUNT 4.62 x10(6)uL (3.90-5.90); RED CELL DISTRIBUTION WIDTH 13.2 % (12.4-15.0); WHITE BLOOD CELL COUNT,WBC 5.8 x10-3/uL (3.2-10.1)
[2024-10-26 10:12] LABS: A/G RATIO 1.5; ALANINE AMINOTRANSFERASE,ALT 25 U/L (12-36); ASPARTATE AMNIOTRANSFERASE,AST 25 IU/L (5-25); BILIRUBIN TOTAL 0.6 mg/dL (0.1-1.3); BLOOD UREA NITROGEN,BUN 7 mg/dL (7-18); CARBON DIOXIDE,CO2 28 mmol/L (21-32); CHLORIDE,CL 104 mmol/L (100-110); CREATININE 1.1 mg/dL (0.70-1.30); EST CRCL DRUG DOSING (CG) 93.02 mL/min; ESTIMATED GFR 92 mL/min (>60); GLUCOSE RANDOM 121 mg/dL (80-116); PROTEIN TOTAL,TP 7.1 g/dL (6.0-8.0); SODIUM,NA 145 mmol/L (135-145)
[2024-10-26 10:13] LABS: POTASSIUM,K 2.8 mmol/L (3.5-5.3)
[2024-10-26 11:01] LABS: AMPHETAMINES SCREEN, URINE NEGATIVE (NEGATIVE); BUPRENORPHINE SCREEN,URINE NEGATIVE (NEGATIVE); METHADONE SCREEN, URINE NEGATIVE (NEGATIVE); METHAMPHETAMINE SCREEN, URINE NEGATIVE (NEGATIVE); OXYCODONE SCREEN,URINE NEGATIVE (NEGATIVE)
[2024-10-26] MEDS: Potassium Chloride 20 MEQ in Premix Bag 1 BAG IV ONE (11:36)
[2024-10-26] MEDS: Potassium Chloride 20 MEQ Tab.ER PO ONE (11:39)
[2024-10-26 16:20] VITALS: PULSE 64
[2024-10-26 16:23] VITALS: BP 113/60
== END 2024-10-26 15:30 | disposition home or self-care (01) ==
LOC: FB.ED 09:05
DX: F10.120 Alcohol abuse with intoxication, uncomplicated (principal); Z88.2 Allergy status to sulfonamides; Z79.899 Other long term (current) drug therapy; Y90.1 Blood alcohol level of 20-39 mg/100 ml
CPT/HCPCS: 36415; 80053; 80307; 83735; 84132; 85025; 96361; 96365; 96366; 96375; 99284; A9270; J3411; J3480; J7030

== ENCOUNTER 2024-11-02 17:53 | Emergency (ER) | payer BC ==
[2024-11-02] MEDS ORDERED: Sodium Chloride 0.9% 10 ML Syringe FLUSH PRN (18:00)
[2024-11-02] MEDS: LORazepam 2 MG/ML SDV IVPUSH ONE (18:20)
[2024-11-02] MEDS: Thiamine 200 MG/2 ML MDV IVPUSH ONE (18:21)
[2024-11-02 18:23] LABS: MEAN PLATELET VOLUME 6.8 fL (6.7-11.0); PLATELET COUNT,PLT 229 x10(3)uL (117-477); RED BLOOD CELL COUNT 5.44 x10(6)uL (3.90-5.90); RED CELL DISTRIBUTION WIDTH 13.5 % (12.4-15.0); WHITE BLOOD CELL COUNT,WBC 13.1 x10-3/uL (3.2-10.1)
[2024-11-02] MEDS: Prochlorperazine 10 MG/2 ML SDV IVPUSH ONE (18:25)
[2024-11-02 18:28] LABS: BLOOD UREA NITROGEN,BUN 15 mg/dL (7-18); CARBON DIOXIDE,CO2 26 mmol/L (21-32); CHLORIDE,CL 93 mmol/L (100-110); CREATININE 1.5 mg/dL (0.70-1.30); ESTIMATED GFR 63 mL/min (>60); GLUCOSE RANDOM 147 mg/dL (80-116); POTASSIUM,K 3.4 mmol/L (3.5-5.3); SODIUM,NA 140 mmol/L (135-145)
[2024-11-02 18:34] LABS: A/G RATIO 1.5; ALANINE AMINOTRANSFERASE,ALT 47 U/L (12-36); ASPARTATE AMNIOTRANSFERASE,AST 49 IU/L (5-25); BILIRUBIN TOTAL 1.7 mg/dL (0.1-1.3); PHOSPHORUS 4.9 mg/dL (2.6-4.6); PROTEIN TOTAL,TP 8.3 g/dL (6.0-8.0)
[2024-11-02 18:36] LABS: BAND PERCENT MAN 3 % (0-6); LYMPHOCYTES PERCENT MAN 2 % (13-37); MONOCYTES PERCENT MAN 2 % (4-12); SEG NEUTROPHILS PERCENT MAN 93 % (46-82)
[2024-11-02] MEDS: Magnesium Sulfate 2 GM/50 mL 2 GM in Premix Bag 1 BAG IV ONE (19:12)
[2024-11-02] MEDS: Potassium Chloride 20 MEQ Tab.ER PO STA (19:12)
[2024-11-02] MEDS: hydrOXYzine HCl 50 MG/ML SDV IM ONE (19:20)
[2024-11-02 21:18] VITALS: BP 124/86; PULSE 89
== END 2024-11-02 20:42 | disposition home or self-care (01) ==
LOC: FB.ED 17:53
DX: K29.20 Alcoholic gastritis without bleeding (principal); F10.930 Alcohol use, unspecified with withdrawal, uncomplicated; F10.929 Alcohol use, unspecified with intoxication, unspecified; E83.42 Hypomagnesemia; K21.9 Gastro-esophageal reflux disease without esophagitis; Z88.2 Allergy status to sulfonamides; Z79.899 Other long term (current) drug therapy; Y90.9 Presence of alcohol in blood, level not specified
CPT/HCPCS: 36415; 80053; 83690; 83735; 84100; 85025; 96361; 96365; 96372; 96375; 99284; 99284-25; A9270-GY; J0780; J2060; J3410; J3411; J3475; J7030

== ENCOUNTER 2024-11-09 14:17 | Emergency (ER) | payer BC ==
[2024-11-09] MEDS ORDERED: Sodium Chloride 0.9% 10 ML Syringe FLUSH PRN (14:46)
[2024-11-09 15:05] LABS: BASOPHILS ABSOLUTE AUTO 0.0 x10-3/uL (0.0-0.3); BASOPHILS PERCENT AUTO 0.2 % (0.3-3.8); EOSINOPHILS ABSOLUTE AUTO 0.0 x10-3/uL (0.0-0.6); EOSINOPHILS PERCENT AUTO 0.0 % (0.1-6.8); LYMPHOCYTES ABSOLUTE AUTO 1.2 x10-3/uL (0.5-4.5); LYMPHOCYTES PERCENT AUTO 9.1 % (15.8-45.3); MEAN PLATELET VOLUME 7.2 fL (6.7-11.0); MONOCYTES ABSOLUTE AUTO 1.0 x10-3/uL (0.0-1.2); MONOCYTES PERCENT AUTO 7.8 % (5.5-15.2); NEUTROPHILS ABSOLUTE AUTO 10.5 x10-3/uL (1.7-6.9); NEUTROPHILS PERCENT AUTO 82.9 % (40.3-71.8); PLATELET COUNT,PLT 354 x10(3)uL (117-477); RED BLOOD CELL COUNT 5.54 x10(6)uL (3.90-5.90); RED CELL DISTRIBUTION WIDTH 14.0 % (12.4-15.0); WHITE BLOOD CELL COUNT,WBC 12.7 x10-3/uL (3.2-10.1)
[2024-11-09] MEDS: Prochlorperazine 10 MG/2 ML SDV IVPUSH ONE (15:05)
[2024-11-09] MEDS: diphenhydrAMINE 50 MG/ML SDV IVPUSH ONE (15:06)
[2024-11-09 15:18] LABS: A/G RATIO 1.6; ALANINE AMINOTRANSFERASE,ALT 43 U/L (12-36); ASPARTATE AMNIOTRANSFERASE,AST 39 IU/L (5-25); BILIRUBIN TOTAL 1.3 mg/dL (0.1-1.3); BLOOD UREA NITROGEN,BUN 15 mg/dL (7-18); CARBON DIOXIDE,CO2 34 mmol/L (21-32); CHLORIDE,CL 95 mmol/L (100-110); CREATININE 1.3 mg/dL (0.70-1.30); ESTIMATED GFR 75 mL/min (>60); GLUCOSE RANDOM 130 mg/dL (80-116); PROTEIN TOTAL,TP 8.5 g/dL (6.0-8.0); SODIUM,NA 142 mmol/L (135-145)
[2024-11-09 15:25] LABS: POTASSIUM,K 2.8 mmol/L (3.5-5.3)
[2024-11-09] MEDS: NS + KCl 20mEq/L 1,000 ML IV SCH (15:54)
[2024-11-09] MEDS: LORazepam 2 MG/ML SDV IVPUSH ONE (15:57)
[2024-11-09] MEDS: Potassium Chloride 20 MEQ Tab.ER PO ONE (18:41)
[2024-11-09 18:48] LABS: GLUCOSE,URINE NORMAL (NORMAL); OCCULT BLOOD,URINE NEGATIVE (NEGATIVE)
[2024-11-09 18:57] LABS: APPEARANCE,URINE CLEAR (CLEAR)
[2024-11-09 19:01] LABS: AMPHETAMINES SCREEN, URINE NEGATIVE (NEGATIVE); METHADONE SCREEN, URINE NEGATIVE (NEGATIVE); METHAMPHETAMINE SCREEN, URINE NEGATIVE (NEGATIVE); OXYCODONE SCREEN,URINE NEGATIVE (NEGATIVE)
[2024-11-09 19:02] LABS: BUPRENORPHINE SCREEN,URINE NEGATIVE (NEGATIVE)
[2024-11-09 20:39] VITALS: BP 112/67; PULSE 79
== END 2024-11-09 20:55 | disposition home or self-care (01) ==
LOC: FB.ED 14:17
DX: F10.130 Alcohol abuse with withdrawal, uncomplicated (principal); E86.0 Dehydration; E87.6 Hypokalemia; R11.2 Nausea with vomiting, unspecified; Z88.2 Allergy status to sulfonamides; Z79.899 Other long term (current) drug therapy; Y90.0 Blood alcohol level of less than 20 mg/100 ml
CPT/HCPCS: 80053; 80307; 81003; 83605; 83735; 85025; 96361; 96365; 96366; 96375; 99284; A9270; J0780; J1200; J2060; J3480; J7030

== ENCOUNTER 2024-11-16 09:15 | Emergency (ER) | payer BC ==
[2024-11-16] MEDS ORDERED: Sodium Chloride 0.9% 10 ML Syringe FLUSH PRN (09:36)
[2024-11-16] MEDS: Prochlorperazine 10 MG/2 ML SDV IVPUSH ONE (09:55)
[2024-11-16] MEDS: Thiamine 200 MG/2 ML MDV IVPUSH ONE (09:55)
[2024-11-16 10:03] LABS: A/G RATIO 1.5; ALANINE AMINOTRANSFERASE,ALT 33 U/L (12-36); ASPARTATE AMNIOTRANSFERASE,AST 31 IU/L (5-25); BILIRUBIN TOTAL 1.0 mg/dL (0.1-1.3); BLOOD UREA NITROGEN,BUN 17 mg/dL (7-18); CARBON DIOXIDE,CO2 32 mmol/L (21-32); CHLORIDE,CL 95 mmol/L (100-110); CREATININE 1.2 mg/dL (0.70-1.30); ESTIMATED GFR 83 mL/min (>60); GLUCOSE RANDOM 106 mg/dL (80-116); POTASSIUM,K 2.9 mmol/L (3.5-5.3); PROTEIN TOTAL,TP 7.7 g/dL (6.0-8.0); SODIUM,NA 142 mmol/L (135-145)
[2024-11-16 10:06] LABS: BASOPHILS ABSOLUTE AUTO 0.1 x10-3/uL (0.0-0.3); BASOPHILS PERCENT AUTO 0.6 % (0.3-3.8); EOSINOPHILS ABSOLUTE AUTO 0.0 x10-3/uL (0.0-0.6); EOSINOPHILS PERCENT AUTO 0.2 % (0.1-6.8); LYMPHOCYTES ABSOLUTE AUTO 1.2 x10-3/uL (0.5-4.5); LYMPHOCYTES PERCENT AUTO 12.8 % (15.8-45.3); MEAN PLATELET VOLUME 6.7 fL (6.7-11.0); MONOCYTES ABSOLUTE AUTO 0.5 x10-3/uL (0.0-1.2); MONOCYTES PERCENT AUTO 4.9 % (5.5-15.2); NEUTROPHILS ABSOLUTE AUTO 7.9 x10-3/uL (1.7-6.9); NEUTROPHILS PERCENT AUTO 81.5 % (40.3-71.8); PLATELET COUNT,PLT 399 x10(3)uL (117-477); RED BLOOD CELL COUNT 5.13 x10(6)uL (3.90-5.90); RED CELL DISTRIBUTION WIDTH 14.0 % (12.4-15.0); WHITE BLOOD CELL COUNT,WBC 9.7 x10-3/uL (3.2-10.1)
[2024-11-16 11:36] VITALS: BP 118/74; PULSE 82
== END 2024-11-16 11:30 | disposition home or self-care (01) ==
LOC: FB.ED 09:15
DX: F10.239 Alcohol dependence with withdrawal, unspecified (principal); Z88.2 Allergy status to sulfonamides; Z79.899 Other long term (current) drug therapy
CPT/HCPCS: 36415; 80053; 80307; 83690; 83735; 85025; 96361; 96374; 96375; 99284; J0780; J3360; J3411; J7030; 99283

== ENCOUNTER 2024-11-21 08:19 | Emergency (ER) | payer BC ==
[2024-11-21] MEDS ORDERED: Sodium Chloride 0.9% 10 ML Syringe FLUSH PRN (08:40)
[2024-11-21] MEDS ORDERED: Thiamine 200 MG/2 ML MDV IVPUSH ONE (08:42)
[2024-11-21 08:58] LABS: RED BLOOD CELL COUNT 5.57 x10(6)uL (3.90-5.90)
[2024-11-21 08:59] LABS: MEAN PLATELET VOLUME 6.9 fL (6.7-11.0); PLATELET COUNT,PLT 398 x10(3)uL (117-477); RED CELL DISTRIBUTION WIDTH 14.3 % (12.4-15.0); WHITE BLOOD CELL COUNT,WBC 11.6 x10-3/uL (3.2-10.1)
[2024-11-21 09:06] LABS: BLOOD UREA NITROGEN,BUN 23 mg/dL (7-18); CARBON DIOXIDE,CO2 37 mmol/L (21-32); CHLORIDE,CL 92 mmol/L (100-110); CREATININE 1.7 mg/dL (0.70-1.30); ESTIMATED GFR 55 mL/min (>60); GLUCOSE RANDOM 153 mg/dL (80-116); POTASSIUM,K 3.6 mmol/L (3.5-5.3); SODIUM,NA 142 mmol/L (135-145)
[2024-11-21 09:12] LABS: A/G RATIO 1.4; ALANINE AMINOTRANSFERASE,ALT 20 U/L (12-36); ASPARTATE AMNIOTRANSFERASE,AST 19 IU/L (5-25); BILIRUBIN TOTAL 1.3 mg/dL (0.1-1.3); PROTEIN TOTAL,TP 9.0 g/dL (6.0-8.0)
[2024-11-21] MEDS: Prochlorperazine 10 MG/2 ML SDV IVPUSH ONE (09:16)
[2024-11-21] MEDS: Thiamine 200 MG/2 ML MDV IVPUSH ONE (09:16)
[2024-11-21 10:09] LABS: LYMPHOCYTES PERCENT MAN 10 % (13-37); MONOCYTES PERCENT MAN 3 % (4-12); SEG NEUTROPHILS PERCENT MAN 87 % (46-82)
[2024-11-21 11:45] VITALS: BP 133/87; PULSE 84
== END 2024-11-21 11:45 | disposition home or self-care (01) ==
LOC: FB.ED 08:19
DX: N17.9 Acute kidney failure, unspecified (principal); K29.20 Alcoholic gastritis without bleeding; E86.0 Dehydration; F10.239 Alcohol dependence with withdrawal, unspecified; Z88.2 Allergy status to sulfonamides; Z79.899 Other long term (current) drug therapy
CPT/HCPCS: 36415; 80053; 83690; 83735; 85025; 96361; 96374; 96375; 99284; J0780; J3360; J3411; J7030

== ENCOUNTER 2024-12-24 07:22 | Emergency (ER) | payer BC ==
[2024-12-24] MEDS ORDERED: Sodium Chloride 0.9% 10 ML Syringe FLUSH PRN (07:46)
[2024-12-24] MEDS: Ondansetron 4 MG/2 ML SDV IVPUSH ONE (08:01)
[2024-12-24 08:03] LABS: BASOPHILS ABSOLUTE AUTO 0.0 x10-3/uL (0.0-0.3); BASOPHILS PERCENT AUTO 0.4 % (0.3-3.8); EOSINOPHILS ABSOLUTE AUTO 0.0 x10-3/uL (0.0-0.6); EOSINOPHILS PERCENT AUTO 0.1 % (0.1-6.8); LYMPHOCYTES ABSOLUTE AUTO 2.0 x10-3/uL (0.5-4.5); LYMPHOCYTES PERCENT AUTO 16.0 % (15.8-45.3); MEAN PLATELET VOLUME 6.8 fL (6.7-11.0); MONOCYTES ABSOLUTE AUTO 0.3 x10-3/uL (0.0-1.2); MONOCYTES PERCENT AUTO 2.2 % (5.5-15.2); NEUTROPHILS ABSOLUTE AUTO 10.0 x10-3/uL (1.7-6.9); NEUTROPHILS PERCENT AUTO 81.3 % (40.3-71.8); PLATELET COUNT,PLT 402 x10(3)uL (117-477); RED BLOOD CELL COUNT 5.22 x10(6)uL (3.90-5.90); RED CELL DISTRIBUTION WIDTH 13.4 % (12.4-15.0); WHITE BLOOD CELL COUNT,WBC 12.3 x10-3/uL (3.2-10.1)
[2024-12-24] MEDS: LORazepam 2 MG/ML SDV IVPUSH ONE (08:03)
[2024-12-24 08:08] LABS: BLOOD UREA NITROGEN,BUN 17 mg/dL (7-18); CARBON DIOXIDE,CO2 21 mmol/L (21-32); CHLORIDE,CL 96 mmol/L (100-110); CREATININE 1.2 mg/dL (0.70-1.30); EST CRCL DRUG DOSING (CG) 79.83 mL/min; ESTIMATED GFR 83 mL/min (>60); GLUCOSE RANDOM 83 mg/dL (80-116); POTASSIUM,K 3.1 mmol/L (3.5-5.3); SODIUM,NA 140 mmol/L (135-145)
[2024-12-24 08:13] LABS: A/G RATIO 1.5; ALANINE AMINOTRANSFERASE,ALT 23 U/L (12-36); ASPARTATE AMNIOTRANSFERASE,AST 40 IU/L (5-25); BILIRUBIN TOTAL 1.2 mg/dL (0.1-1.3); PROTEIN TOTAL,TP 8.0 g/dL (6.0-8.0)
[2024-12-24] MEDS: Potassium Chloride 20 MEQ Tab.ER PO ONE (11:15)
[2024-12-24 14:42] VITALS: BP 122/69; PULSE 78
== END 2024-12-24 13:40 | disposition home or self-care (01) ==
LOC: FB.ED 07:22
DX: F10.230 Alcohol dependence with withdrawal, uncomplicated (principal); K21.9 Gastro-esophageal reflux disease without esophagitis; Z79.899 Other long term (current) drug therapy; Z88.2 Allergy status to sulfonamides; Y90.0 Blood alcohol level of less than 20 mg/100 ml
CPT/HCPCS: 36415; 80053; 80307; 83735; 85025; 96361; 96374; 96375; 99284; A9270; J2060; J2405; J7030

== ENCOUNTER 2025-01-21 05:52 | Emergency (ER) | payer BC ==
[2025-01-21] MEDS ORDERED: Sodium Chloride 0.9% 10 ML Syringe FLUSH PRN (06:04)
[2025-01-21 06:27] LABS: BASOPHILS ABSOLUTE AUTO 0.0 x10-3/uL (0.0-0.3); BASOPHILS PERCENT AUTO 0.5 % (0.3-3.8); EOSINOPHILS ABSOLUTE AUTO 0.0 x10-3/uL (0.0-0.6); EOSINOPHILS PERCENT AUTO 0.8 % (0.1-6.8); LYMPHOCYTES ABSOLUTE AUTO 2.5 x10-3/uL (0.5-4.5); LYMPHOCYTES PERCENT AUTO 44.9 % (15.8-45.3); MEAN PLATELET VOLUME 6.6 fL (6.7-11.0); MONOCYTES ABSOLUTE AUTO 0.3 x10-3/uL (0.0-1.2); MONOCYTES PERCENT AUTO 5.1 % (5.5-15.2); NEUTROPHILS ABSOLUTE AUTO 2.7 x10-3/uL (1.7-6.9); NEUTROPHILS PERCENT AUTO 48.7 % (40.3-71.8); PLATELET COUNT,PLT 253 x10(3)uL (117-477); RED BLOOD CELL COUNT 4.70 x10(6)uL (3.90-5.90); RED CELL DISTRIBUTION WIDTH 13.9 % (12.4-15.0); WHITE BLOOD CELL COUNT,WBC 5.5 x10-3/uL (3.2-10.1)
[2025-01-21 06:31] LABS: BLOOD UREA NITROGEN,BUN 15 mg/dL (7-18); CARBON DIOXIDE,CO2 31 mmol/L (21-32); CHLORIDE,CL 99 mmol/L (100-110); CREATININE 1.1 mg/dL (0.70-1.30); ESTIMATED GFR 92 mL/min (>60); GLUCOSE RANDOM 88 mg/dL (80-116); POTASSIUM,K 3.0 mmol/L (3.5-5.3); SODIUM,NA 143 mmol/L (135-145)
[2025-01-21] MEDS: LORazepam 2 MG/ML SDV IVPUSH ONE (06:35)
[2025-01-21] MEDS: Thiamine 200 MG/2 ML MDV IVPUSH ONE (06:36)
[2025-01-21 06:37] LABS: A/G RATIO 1.4; ALANINE AMINOTRANSFERASE,ALT 25 U/L (12-36); ASPARTATE AMNIOTRANSFERASE,AST 31 IU/L (5-25); BILIRUBIN TOTAL 1.2 mg/dL (0.1-1.3); PROTEIN TOTAL,TP 7.2 g/dL (6.0-8.0)
[2025-01-21 08:52] VITALS: BP 132/67; PULSE 87
== END 2025-01-21 08:43 | disposition home or self-care (01) ==
LOC: FB.ED 05:52 → SUPCPDRO 05:52 → FB.ED 08:43
DX: F10.230 Alcohol dependence with withdrawal, uncomplicated (principal); K21.9 Gastro-esophageal reflux disease without esophagitis; Z88.2 Allergy status to sulfonamides; Z79.899 Other long term (current) drug therapy; Y90.0 Blood alcohol level of less than 20 mg/100 ml
CPT/HCPCS: 36415; 80053; 80307; 85025; 96361; 96374; 96375; 99284; J2060; J2765; J3411; J7030

== ENCOUNTER 2025-02-11 06:58 | Emergency (ER) | payer BC ==
[2025-02-11] MEDS ORDERED: Sodium Chloride 0.9% 10 ML Syringe FLUSH PRN (07:37)
[2025-02-11] MEDS: LORazepam 2 MG/ML SDV IVPUSH ONE (07:41)
[2025-02-11] MEDS: Ondansetron 4 MG/2 ML SDV IVPUSH ONE (07:43)
[2025-02-11 07:56] LABS: BASOPHILS ABSOLUTE AUTO 0.0 x10-3/uL (0.0-0.3); BASOPHILS PERCENT AUTO 0.2 % (0.3-3.8); EOSINOPHILS ABSOLUTE AUTO 0.0 x10-3/uL (0.0-0.6); EOSINOPHILS PERCENT AUTO 0.2 % (0.1-6.8); LYMPHOCYTES ABSOLUTE AUTO 1.7 x10-3/uL (0.5-4.5); LYMPHOCYTES PERCENT AUTO 12.7 % (15.8-45.3); MEAN PLATELET VOLUME 7.3 fL (6.7-11.0); MONOCYTES ABSOLUTE AUTO 0.7 x10-3/uL (0.0-1.2); MONOCYTES PERCENT AUTO 5.4 % (5.5-15.2); NEUTROPHILS ABSOLUTE AUTO 10.7 x10-3/uL (1.7-6.9); NEUTROPHILS PERCENT AUTO 81.5 % (40.3-71.8); PLATELET COUNT,PLT 344 x10(3)uL (117-477); RED BLOOD CELL COUNT 5.10 x10(6)uL (3.90-5.90); RED CELL DISTRIBUTION WIDTH 13.4 % (12.4-15.0); WHITE BLOOD CELL COUNT,WBC 13.1 x10-3/uL (3.2-10.1)
[2025-02-11 08:02] LABS: A/G RATIO 1.3; ALANINE AMINOTRANSFERASE,ALT 22 U/L (12-36); ASPARTATE AMNIOTRANSFERASE,AST 26 IU/L (5-25); BILIRUBIN TOTAL 1.1 mg/dL (0.1-1.3); BLOOD UREA NITROGEN,BUN 12 mg/dL (7-18); CARBON DIOXIDE,CO2 34 mmol/L (21-32); CHLORIDE,CL 93 mmol/L (100-110); CREATININE 1.1 mg/dL (0.70-1.30); EST CRCL DRUG DOSING (CG) 84.28 mL/min; ESTIMATED GFR 92 mL/min (>60); GLUCOSE RANDOM 89 mg/dL (80-116); PROTEIN TOTAL,TP 8.2 g/dL (6.0-8.0); SODIUM,NA 141 mmol/L (135-145)
[2025-02-11 08:06] LABS: LACTIC ACID 4.3 mmol/L (0.4-2.0); POTASSIUM,K 2.6 mmol/L (3.5-5.3)
[2025-02-11] MEDS: Potassium Chloride 20 MEQ Tab.ER PO ONE ×2 (08:28→10:07)
[2025-02-11] MEDS: Magnesium Sulfate 2 GM/50 mL 2 GM in Premix Bag 1 BAG IV ONE (10:08)
[2025-02-11 12:06] VITALS: BP 109/69; PULSE 83
== END 2025-02-11 11:55 | disposition home or self-care (01) ==
LOC: FB.ED 06:58
DX: F10.930 Alcohol use, unspecified with withdrawal, uncomplicated (principal); E86.0 Dehydration; E83.42 Hypomagnesemia; Z88.2 Allergy status to sulfonamides; Z79.899 Other long term (current) drug therapy; Y90.9 Presence of alcohol in blood, level not specified
CPT/HCPCS: 36415; 80053; 83605; 83690; 83735; 85025; 96361; 96374; 96375; 99284; A9270; J2060; J2405; J3475; J7030

== ENCOUNTER 2025-03-18 10:47 | Emergency (ER) | payer BC ==
[2025-03-18] MEDS: Ondansetron 4 MG/2 ML SDV IVPUSH ONE (11:15)
[2025-03-18] MEDS: Ketorolac 30 MG/ML SDV IVPUSH ONE (11:19)
[2025-03-18 11:24] LABS: BASOPHILS ABSOLUTE AUTO 0.1 x10-3/uL (0.0-0.3); BASOPHILS PERCENT AUTO 0.7 % (0.3-3.8); EOSINOPHILS ABSOLUTE AUTO 0.0 x10-3/uL (0.0-0.6); EOSINOPHILS PERCENT AUTO 0.4 % (0.1-6.8); LYMPHOCYTES ABSOLUTE AUTO 1.9 x10-3/uL (0.5-4.5); LYMPHOCYTES PERCENT AUTO 17.2 % (15.8-45.3); MEAN PLATELET VOLUME 7.0 fL (6.7-11.0); MONOCYTES ABSOLUTE AUTO 0.4 x10-3/uL (0.0-1.2); MONOCYTES PERCENT AUTO 3.4 % (5.5-15.2); NEUTROPHILS ABSOLUTE AUTO 8.7 x10-3/uL (1.7-6.9); NEUTROPHILS PERCENT AUTO 78.3 % (40.3-71.8); PLATELET COUNT,PLT 336 x10(3)uL (117-477); RED BLOOD CELL COUNT 5.35 x10(6)uL (3.90-5.90); RED CELL DISTRIBUTION WIDTH 13.4 % (12.4-15.0); WHITE BLOOD CELL COUNT,WBC 11.1 x10-3/uL (3.2-10.1)
[2025-03-18 11:30] LABS: BLOOD UREA NITROGEN,BUN 16 mg/dL (7-18); CARBON DIOXIDE,CO2 29 mmol/L (21-32); CHLORIDE,CL 98 mmol/L (100-110); CREATININE 1.2 mg/dL (0.70-1.30); EST CRCL DRUG DOSING (CG) 75.54 mL/min; ESTIMATED GFR 83 mL/min (>60); GLUCOSE RANDOM 77 mg/dL (80-116); POTASSIUM,K 3.2 mmol/L (3.5-5.3); SODIUM,NA 144 mmol/L (135-145)
[2025-03-18 11:36] LABS: A/G RATIO 1.6; ALANINE AMINOTRANSFERASE,ALT 27 U/L (12-36); ASPARTATE AMNIOTRANSFERASE,AST 29 IU/L (5-25); BILIRUBIN TOTAL 1.0 mg/dL (0.1-1.3); PROTEIN TOTAL,TP 8.4 g/dL (6.0-8.0)
[2025-03-18] MEDS: diphenhydrAMINE 50 MG/ML SDV IVPUSH ONE (11:39)
[2025-03-18] MEDS: hydrOXYzine HCl 50 MG/ML SDV IM ONE (11:40)
[2025-03-18] MEDS: Magnesium Sulf 1 GM/2 mL SDV 1 GM in Sodium Chloride 0.9% 50 ML IV ONE (12:19)
[2025-03-18] MEDS: Potassium Chloride 20 MEQ Tab.ER PO ONE (14:43)
[2025-03-18 14:47] VITALS: BP 126/74; PULSE 91
== END 2025-03-18 14:45 | disposition home or self-care (01) ==
LOC: FB.ED 10:47
DX: F10.10 Alcohol abuse, uncomplicated (principal); E87.6 Hypokalemia; E86.0 Dehydration; E83.42 Hypomagnesemia; E87.20 Acidosis, unspecified; R11.2 Nausea with vomiting, unspecified; K21.9 Gastro-esophageal reflux disease without esophagitis; Z88.2 Allergy status to sulfonamides; Z79.899 Other long term (current) drug therapy
CPT/HCPCS: 36415; 80053; 82550; 83605; 83690; 83735; 84484; 85025; 86140; 96361; 96372; 96374; 96375; 99284; J1200; J1885; J2359; J2405; J2765; J3410; J7030